=== PATIENT | male | born 1985 | race Caucasian/White ===

== ENCOUNTER 2018-02-08 11:20 | Inpatient (IN) | payer OTHER ==
[~2018-02-08] VITALS: Ht 172.7 cm; Wt 78.0 kg
--- NOTE | 2018-02-08 11:29 | ED GENERAL ADULT ---
History of Present Illness General Chief Complaint: ETOH/Drug Related Complaint Stated Complaint: ASTHMA EVAL FOR [facility] Source: patient Exam Limitations: no limitations Vital Signs & Intake/Output Vital Signs & Intake/Output Vital Signs Date Time Temp Pulse Resp B/P B/P Pulse O2 O2 Flow FiO2 Mean Ox Delivery Rate 02/08 1913 97.9 101 22 128/78 97 Nasal 1.0L Cannula 02/08 1745 68.8 110 20 134/75 96 Nasal 1.0L Cannula 02/08 1558 98 Nasal 3.0L Cannula 02/08 1518 103 28 138/81 99 Nasal 4.0L Cannula 02/08 1330 98 Nasal 3.0L Cannula 02/08 1328 109 18 135/85 98 Nasal 3.0L Cannula 02/08 1228 95 Room Air 3.0L 02/08 1202 94 Nasal 3.0L Cannula 02/08 1125 98.2 118 24 153/90 86 Room Air Room Air Allergies Coded Allergies: No Known Allergies (02/08/18) Triage Note: TRIAGE: * HIGHWATCH ADMISSION NEEDS MEDICAL CLEARANCE * 32 Y/O MALE PRESENTS C/O ASTHMA EXACERBATION - GARCIA AIR SPO2 86% - AUDIBLE WHEEZING NOTED. TAKES PERCOCET, TRAZODONE, SEROQUEL. BOUGHT UNKNOWN SUBSTANCE AND SNORTED IT YESTERDAY. MOTHER HAS BAGGIE IN POCKET. Triage Nurses Notes Reviewed? yes Onset: Gradual Duration: worse persistent since (2 WEEKS) Timing: recent history Injury Environment: home Severity: moderate, severe Severity Numbers: 8 Modifying Factors: Improves With: immobilization. Worsens With: movement. HPI: Patient is a 32-year-old male with history of drug abuse, asthma and anxiety presenting to the emergency Department chief complaint of increasing shortness of breath worsening over the past 2 weeks. He reports that he saw his primary care physician 2 weeks ago was diagnosed with bronchitis and started on antibiotics, inhalers and steroids. Patient didn't improve so he went back to the primary care physician who diagnosed him with pneumonia on x-ray. He was switched with antibiotics. Symptoms have been progressively getting worse despite treatment. Finished treatment several days ago. Mom concerned because she's not sure if he has been taking medications as prescribed. Patient does not smoke.EtOH use. Patient reports that he takes Percocet, uses lorazepam and smokes marijuana all which are for his cyclical vomiting syndrome and gastroparesis. Patient denying any chest pain but reports that he feels very tight and wheezy. Positive chills but no fevers. No palpitations. Mom reports it is extremely drowsy. Mom called the police this morning because someone dropped off pain medication to the house to the son illegally. Son agreed to be transferred to Hospital and go to rehabilitation. Denies homicidal or suicidal ideation. PER PT, OKAY TO SPEAK IN FRONT OF MOM. (Nelly Sales) Reconcile Medications Quetiapine Fumarate 50 MG TABLET 1 TAB PO QPM MENTAL HEALTH (Reported) (Jessica DELVALLE,Riccardo Brizuela) Past History Travel History Traveled to [place] past 21 day No Medical History Any Pertinent Medical History? see below for history Neurological: NONE EENT: NONE Cardiovascular: NONE Respiratory: asthma Gastrointestinal: NONE Hepatic: NONE Renal: NONE Musculoskeletal: NONE Psychiatric: anxiety Endocrine: NONE Blood Disorders: NONE Cancer(s): NONE CLINICAL QUALITY ASSURANCE ASSOCIATE/Reproductive: NONE Surgical History Surgical History: non-contributory Psychosocial History What is your primary language Irish Tobacco Use: Never used ETOH Use: occasional use Illicit Drug Use: PERCOCET Family History Hx Contributory? No (Nelly Sales) Review of Systems Review of Systems Constitutional: Reports: see HPI, chills, malaise, weakness. Comments Review of systems: See HPI, All other systems negative. Constitutional, no fever or weight loss HEENT: No visual changes no sore throat Cardiovascular: No chest pain ,palpitation , orthopnea or ankle swelling Skin, no jaundice no rashes Respiratory: No sputum or hemoptysis GI: No nausea no vomiting : No dysuria No hematuria Muscle skeletal: no back pain, no neck pain, Neurologic: No numbness no confusion Psych: No stress anxiety or depression,. Heme/endocrine: No bruising no bleeding no polyuria or polydipsia Immunology: No splenectomy or history of AIDS (Nelly Sales) Physical Exam Physical Exam General Appearance: sedated, moderate distress, MODERATE RESPIRATORY DISTRESS Comments: FATIGUED person in MOD DISTRESS HEENT: Pupils equally round and reactive to light and accommodation. Pupils approximately 3 mm bilaterally. Nose is atraumatic. External auditory canal and Tympanic membranes clear. Pharynx normal. No swelling or edema. Extremely dry oral mucosa. Dry cracked lips. Neck: Supple, no lymphadenopathy Back: Nontender Cardiovascular: Tachycardic rate and rhythms, no murmurs auscultated on exam Respiratory: Chest nontender. Moderate respiratory distress.diffuse inspiratory and expiratory wheezing noted throughout bilaterally. Abdomen: Soft, nontender nondistended, no appreciable organomegaly. Normal bowel sounds. No ascites, no rebound or guarding. Extremity: No edema, no calf tenderness to palpation, normal and equal pulses. Neuro: Alert oriented x3, motor sensory normal, cranial nerves II through XII grossly intact, several attempts made to follow exam. Skin: No appreciable rash on exposed skin, skin is warm and dry. Psych: Appears very fatigued, arousable to verbal and tactile stimuli but falls back asleep, memory and judgment is normal. Core Measures ACS in differential dx? Yes CVA/TIA Diagnosis: No Sepsis Present: No Sepsis Focused Exam Completed? No (Vicky MCDONOUGH,Nelly) Progress Differential Diagnoses I considered the following diagnoses in my evaluation of the patient: Polysubstance abuse, pneumonia, bronchitis, sepsis, asthma exacerbation, ACS, electrolyte abnormality Plan of Care: Orders Procedure Date/time Status Heart Healthy Diet 02/09 B Active BASIC ELECTROLYTES PLUS BUN&CR 02/09 0600 Active Regular Diet 02/08 D Complete Weight 02/08 1906 Active Vital Signs 02/08 190 Active Teach/Educate 02/08 190 Active Pain Treatment and Response 02/08 190 Active Nutritional Intake, Monitor 02/08 190 Active Isolation 02/08 190 Active Intake & Output 02/08 190 Active Patient Care Conference 02/08 190 Active Activity/Ambulation 02/08 1906 Active TRC EVALUATION (GEN) 02/08 1845 Active Pathway - chart 02/08 1845 Active Lab Add-on Test 02/08 1843 Active Pathway - chart 02/08 1749 Active LACTIC ACID 02/08 1749 Complete Patient Data 02/08 1628 Active ED Holding Orders 02/08 1618 Active Admit to inpatient 02/08 1618 Active Vital Signs 02/08 1618 Active Code Status 02/08 1618 Active Straight Cath 02/08 1429 Active URINE DRUG SCREEN FOR ER ONLY 02/08 1427 Complete Add-on Test (ER Only) 02/08 1329 Active ARTERIAL BLOOD GAS (GEN) 02/08 1323 Active TROPONIN LEVEL 02/08 1212 Complete TOTAL IRON BINDING CAPACITY 02/08 1212 Complete MAGNESIUM 02/08 1212 Complete FERRITIN 02/08 1212 Complete SERUM IRON 02/08 1212 Complete ETHANOL 02/08 1212 Complete EKG 02/08 1202 Active Telemetry/Hooker Off 02/08 1150 Active BLOOD CULTURE 02/08 1150 Active COMPREHENSIVE METABOLIC PANEL 02/08 1150 Complete CBC WITHOUT DIFFERENTIAL 02/08 1150 Complete Intake & Output 02/08 1124 Active House Staff 02/08 UNK Active Lab Add-on Test 02/08 UNK Active CIWA 02/08 UNK Active Activity/Ambulation 02/08 UNK Active SOCIAL WORK CONSULT 02/08 UNK Active PSYCHIATRIC CONSULT 02/08 UNK Active Current Medications Sig/Kye Start time Last Medication Dose Stop Time Status Admin Lorazepam 1 MG BID 02/08 2200 AC (Ativan) Sodium Chloride 1,000 ML Q13H 02/08 2000 AC (Normal Saline 0.9%) Acetaminophen 650 MG Q6P PRN 02/08 1845 AC (Tylenol) Enoxaparin Sodium 40 MG DAILY 02/08 184 AC (Lovenox) Clonidine 0.1 MG Q6 PRN 02/08 1815 AC (Catapres) Ampicillin Sodium/ 3,000 MG Q6 02/08 1800 AC Sulbactam Sodium (Unasyn) Sodium Chloride 100 ML (Normal Saline 0.9%) Lorazepam 2 MG Q2P PRN 02/08 1800 AC (Ativan) Lorazepam 1 MG Q2P PRN 02/08 1800 AC (Ativan) Sodium Chloride 1,000 ML BOLUS ONE 02/08 1745 AC 02/08 (Normal Saline 0.9%) 02/08 1944 1905 Magnesium Sulfate 1 GM Q2H 02/08 1545 AC 02/08 Dextrose/Water 100 ML 02/08 1944 1731 (D5W) Magnesium Sulfate 2 GM ONCE ONE 02/08 1530 CAN 02/08 1531 Laboratory Tests 02/08/18 1820: Lactic Acid 1.2 02/08/18 1427: Urine Opiates Screen > 4000.00 H, Methadone Screen < 40, Barbiturate Screen < 60, Ur Phencyclidine Scrn < 6.00, Amphetamines Screen < 100, U Benzodiazepines Scrn > 800 H, Urine Cocaine Screen < 50, Urine Cannabis Screen > 80.00 H 02/08/18 1335: Bicarbonate Actual 25, Mixed VBG pH 7.37, Mixed VBG pCO2 45, Mixed VBG O2 Saturation 35, Carboxyhemoglobin 1.0 L, O2 Concentration % 3L, O2 Delivery Method NC, Phlebotomy Draw Site LEFT RADIAL 02/08/18 1212: Anion Gap 13, Estimated GFR > 60, BUN/Creatinine Ratio 20.0, Glucose 113 H, Calcium 9.3, Magnesium 1.8, Iron 69, TIBC 355, Ferritin 147.0, Total Bilirubin 1.0, AST 26, ALT 34, Alkaline Phosphatase 85, Troponin I < 0.01, Total Protein 7.7, Albumin 4.2, Globulin 3.5, Albumin/Globulin Ratio 1.2, CBC w Diff NO MAN DIFF REQ, RBC 4.74, MCV 84.2, MCH 28.6, MCHC 34.0, RDW 13.6, MPV 7.2 L, Gran % 61.6, Lymphocytes % 11.5 L, Monocytes % 7.8, Eosinophils % 18.7 H, Basophils % 0.4, Absolute Granulocytes 7.3 H, Absolute Lymphocytes 1.4, Absolute Monocytes 0.9 H, Absolute Eosinophils 2.2, Absolute Basophils 0, Serum Alcohol < 10.0 Microbiology 02/08 121 BLOOD: Blood Culture - RECD 02/08 1210 BLOOD: Blood Culture - RECD Diagnostic Imaging: Viewed by Me: Radiology Read. Discussed w/RAD: Radiology Read. Radiology Impression: PATIENT: JULIO ARORA PRESENT AGE: 32 PATIENT ACCOUNT NO: [id number] : 84 LOCATION: [facility] ORDERING PHYSICIAN: Nelly MCDONOUGH SERVICE DATE: 02/08/18 EXAM TYPE: RAD - XRY-CHEST XRAY, TWO VIEWS EXAMINATION: XR CHEST CLINICAL INFORMATION : Further evaluate the status. COMPARISON: None TECHNIQUE: 2 views of the chest were obtained. FINDINGS: The lung skelton are better evaluated on the current radiographs. The hazy opacity seen on the prior study corresponds to prominence of the interstitium with some areas of central peribronchial cuffing. There is no dense consolidation, pleural effusion, or pneumothorax. The cardiomediastinal silhouette appears normal. The osseous structures are intact. IMPRESSION: Generalized prominence of the bronchovascular markings with some areas of peribronchial cuffing centrally without confluent consolidation or collapse. Findings may represent small airways disease. DICTATED BY: Francis Garber MD DATE/TIME DICTATED:02/08/181441 CARBON CLEANER:CLOVER DATE/TIME TRANSCRIBED:02/08/181441 CONFIDENTIAL, DO NOT COPY WITHOUT APPROPRIATE AUTHORIZATION. <Electronically signed in Other Vendor System> SIGNED BY: Francis Garber MD 02/08/18 1452 Initial ED EKG: SINUS TACHYCARDIA AT 110 BPM (Nelly Sales) Departure Departure Time of Disposition: 1619 Disposition: STILL A PATIENT Condition: Stable Clinical Impression Primary Impression: Bronchitis Secondary Impressions: Failure of outpatient treatment, Hypoxia Referrals: Patient Has No Primary Care Dr Departure Forms: Customer Survey General Discharge Information Admission Note Spoke With: Amairani DELVALLE,Olive Documentation of Exam: Documentation of any treatments & extenuating circumstances including Concerns Regarding Discharge (functional status, medication knowledge or non-compliance, living conditions, etc.) that warrant an admission rather than observation: Patient failed outpatient treatment for pneumonia and bronchitis,. Patient requiring supplemental oxygen which is new for this patient. Patient requiring serial DuoNeb [place] AND pulmonology consultation. Patient's outpatient compliance is questionable. Patient went for better as inpatient treatment for bronchitis. (Nelly Sales) PA/CPO Co-Sign Statement Statement: ED Attending supervision documentation- [X] I saw and evaluated the patient. I have also reviewed all the pertinent lab results and diagnostic results. I agree with the findings and the plan of care as documented in the PA's/CPO's documentation. [X] I have reviewed the ED Record and agree with the PA's/CPO's documentation. [] Additions or exceptions (if any) to the PAs/CPO's note and plan are summarized below: [FAILED OUTPATIENT THERAPY, POLYSUBSTANCE ABUSE, IV ABX, IV STEROIDS, NEBS, PULM CONSULT, SOCIAL WORK CONSULT] (Jessica DELVALLE,Riccardo Brizuela) Critical Care Note Critical Care Note Critical Care Time: 30-74 min (Nelly Sales)
[2018-02-08 12:21] LABS: ABSOLUTE BASOPHIL COUNT 0 /CUMM (0.0-0.2); ABSOLUTE EOSINOPHIL COUNT 2.2 /CUMM (0.0-0.7); ABSOLUTE GRANULOCYTE CT 7.3 /CUMM (1.4-6.5); ABSOLUTE LYMPH COUNT 1.4 /CUMM (1.2-3.4); ABSOLUTE MONOCYTE COUNT 0.9 /CUMM (0.10-0.60); BASOPHIL % 0.4 % (0.0-2.0); GRANULOCYTE % 61.6 % (42.2-75.2); HEMATOCRIT 39.9 % (42-52); MEAN CORPUSCULAR HGB 28.6 PG (27.0-31.0); MEAN CORPUSCULAR VOLUME 84.2 FL (80.0-94.0); MEAN PLATELET VOLUME 7.2 FL (7.4-10.4); PLATELET COUNT 289 /CUMM (130-400); RBC DISTRIBUTION WIDTH 13.6 % (11.5-14.5); RED BLOOD CELL CT 4.74 /CUMM (4.70-6.10); WHITE BLOOD CELL COUNT 11.8 /CUMM (4.8-10.8)
[2018-02-08 12:39] LABS: EOSINOPHIL % 18.7 % (0-5)
--- NOTE | 2018-02-08 12:57 | RADIOLOGY REPORT ---
EXAMINATION: XR PORTABLE CHEST CLINICAL INFORMATION: Worsening shortness of breath. COMPARISON: None TECHNIQUE: Portable frontal view of the chest was obtained. FINDINGS: Cardiac monitoring leads overlie the chest. No dense consolidation, edema, or effusion. There is hazy airspace opacity in the right mid and lower lung zones. No pneumothorax. The cardiomediastinal silhouette appears normal. IMPRESSION: Mild nonspecific hazy airspace opacity in the right mid and lower lung zones. Consider dedicated PA and lateral radiographs for dedicated evaluation. No dense consolidation in the chest.
--- NOTE | 2018-02-08 14:52 | RADIOLOGY REPORT ---
EXAMINATION: XR CHEST CLINICAL INFORMATION: Further evaluate the status. COMPARISON: None TECHNIQUE: 2 views of the chest were obtained. FINDINGS: The lung skelton are better evaluated on the current radiographs. The hazy opacity seen on the prior study corresponds to prominence of the interstitium with some areas of central peribronchial cuffing. There is no dense consolidation, pleural effusion, or pneumothorax. The cardiomediastinal silhouette appears normal. The osseous structures are intact. IMPRESSION: Generalized prominence of the bronchovascular markings with some areas of peribronchial cuffing centrally without confluent consolidation or collapse. Findings may represent small airways disease.
--- NOTE | 2018-02-08 16:52 | History & Physical ---
Miki Howard MD 02/08/18 4871: General Information and HPI History of Present Illness: Mr. 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 The patient is very drowsy and history is limited. History was also obtained from his mother. The patient was at rehabilitation 3 years ago [facility] and has since been off of drugs. However, about one and half months ago, he relapsed and started using drugs again. His mother thinks that this was triggered by anxiety. He has been using lorazepam, Percocet, and marijuana. He denies ever injecting drugs but does sometimes snort them. Additionally, the patient has recently experienced bronchitis/pneumonia and took a course of antibiotics and prednisone which she finished 1 week ago. Otherwise, he denies shortness of breath, chest pain, cough , fever, chills, night sweats, abdominal pain, nausea or vomiting, diarrhea. He does not smoke tobacco or use alcohol. 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 [employer] Allergies/Medications Allergies: Coded Allergies: No Known Allergies (02/08/18) Past History Travel History Traveled to [place] past 21 day No Medical History Neurological: NONE EENT: NONE Cardiovascular: NONE Respiratory: asthma Gastrointestinal: NONE Hepatic: NONE Renal: NONE Musculoskeletal: NONE Psychiatric: anxiety Endocrine: NONE Blood Disorders: NONE Cancer(s): NONE MECHANICAL ENGINEERING INTERN/Reproductive: NONE Surgical History Surgical History: non-contributory Past Family/Social History Psychosocial History ETOH Use: occasional use Illicit Drug Use: PERCOCET Review of Systems Review of Systems Constitutional: Reports: no symptoms. EENTM: Reports: no symptoms. Cardiovascular: Reports: no symptoms. Respiratory: Reports: see HPI. GI: Reports: no symptoms. Genitourinary: Reports: no symptoms. Musculoskeletal: Reports: no symptoms. Skin: Reports: no symptoms. Neurological/Psychological: Reports: no symptoms. Hematologic/Endocrine: Reports: no symptoms. Immunologic/Allergic: Reports: no symptoms. All Other Systems: Reviewed and Negative Exam & Diagnostic Data Last 24 Hrs of Vital Signs/I&O Vital Signs Date Time Temp Pulse Resp B/P B/P Pulse O2 O2 Flow FiO2 Mean Ox Delivery Rate 02/08 1558 98 Nasal 3.0L Cannula 02/08 1518 103 28 138/81 99 Nasal 4.0L Cannula 02/08 1330 98 Nasal 3.0L Cannula 02/08 1328 109 18 135/85 98 Nasal 3.0L Cannula 02/08 1228 95 Room Air 3.0L 02/08 1202 94 Nasal 3.0L Cannula 02/08 1125 98.2 118 24 153/90 86 Room Air Room Air Intake & Output 02/08 1600 02/08 0800 04 0000 Intake Total Output Total Balance Patient 77.111 kg Weight Weight Reported by Patient Measurement Method Physical Exam General Appearance Cooperative, solmnulent Skin No Rashes HEENT Atraumatic Cardiovascular Regular Rate, Normal S1, Normal S2 Lungs moderate wheezing with crackles on left Abdomen Normal Bowel Sounds, Soft, No Tenderness Extremities No Edema, Normal Pulses, No Tenderness/Swelling Last 24 Hrs of Labs/Nabil: Laboratory Tests 02/08/18 1427: Urine Opiates Screen > 4000.00 H, Methadone Screen < 40, Barbiturate Screen < 60, Ur Phencyclidine Scrn < 6.00, Amphetamines Screen < 100, U Benzodiazepines Scrn > 800 H, Urine Cocaine Screen < 50, Urine Cannabis Screen > 80.00 H 02/08/18 1335: Bicarbonate Actual 25, Mixed VBG pH 7.37, Mixed VBG pCO2 45, Mixed VBG O2 Saturation 35, Carboxyhemoglobin 1.0 L, O2 Concentration % 3L, O2 Delivery Method NC, Phlebotomy Draw Site LEFT RADIAL 02/08/18 1212: Anion Gap 13, Estimated GFR > 60, BUN/Creatinine Ratio 20.0, Glucose 113 H, Calcium 9.3, Total Bilirubin 1.0, AST 26, ALT 34, Alkaline Phosphatase 85, Troponin I < 0.01, Total Protein 7.7, Albumin 4.2, Globulin 3.5, Albumin/ Globulin Ratio 1.2, CBC w Diff NO MAN DIFF REQ, RBC 4.74, MCV 84.2, MCH 28.6, MCHC 34.0, RDW 13.6, MPV 7.2 L, Gran % 61.6, Lymphocytes % 11.5 L, Monocytes % 7.8, Eosinophils % 18.7 H, Basophils % 0.4, Absolute Granulocytes 7.3 H, Absolute Lymphocytes 1.4, Absolute Monocytes 0.9 H, Absolute Eosinophils 2.2, Absolute Basophils 0, Serum Alcohol < 10.0 Microbiology 02/08 1212 BLOOD: Blood Culture - RECD 02/08 1210 BLOOD: Blood Culture - RECD Assessment/Plan Assessment: Mr. 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 On presentation, vital signs were T 98.2, HR 118, RR 24, BP 153/90, saturating 96% on room air. This improved to 98% on 3 L nasal cannula. Laboratories are sent in for hemoglobin 13.6, white blood cell count 11.8, MCV 84.2, glucose 113, negative LFTs, troponin less than 0.01. Chest x-ray showed generalized prominence of the bronchovascular markings with some areas of peribronchial cuffing centrally without confluent consolidation collapse which may represent small airways disease. He will be admitted to general medicine and treated for the following problem: 1. Possible aspiration pneumonia 2. Polysubstance abuse 3. Anxiety 4. Normocytic anemia 5. Acute hypoxic respiratory failure #Possible aspiration pneumonia: Patient was very somnolent on admission, crackles on exam, and chest x-ray findings consistent with possible aspiration pneumonia. He also has leukocytosis and tachycardia and hypoxia. We will treat him with broad-spectrum antibiotics. He passed bedside swallow evaluation. -Ampicillin/sulbactam -TRC nebs -Sputum culture -Oxygen therapy -Hold sedatives #Polysubstance abuse: Patient has history of polysubstance abuse and will likely need rehabilitation after medically stabilized. He will likely go through withdrawal. He also has significant anxiety that is contributing to this. The patient's mother brought in a bag of drugs that we sent to the pharmacy for analysis.. -Lorazepam 1 mg twice a day -CIWA protocol -Clonidine as necessary -Ondansetron as necessary -Consider adding dicyclomine, loperamide, acetaminophen, and cyclobenzaprine further symptoms with withdrawal as necessary -Zolpidem -Psychiatric consult -Social work consult #Normocytic anemia: Likely anemia of chronic disease. -Iron studies DVT prophylaxis with enoxaparin Regular diet Full code As Ranked By This Provider Problem List: 1. Aspiration pneumonia Core Measures/Misc (07/20) Acute Coronary Syndrome ACS Diagnosis: No Congestive Heart Failure Congestive Heart Failure Diagnosis No Cerebrovascular Accident CVA/TIA Diagnosis: No VTE (View Protocol) VTE Risk Factors Immobility No Mechanical VTE Prophylaxis d/t N/A MechProphylax Ordered No VTE Pharm Prophylaxis d/t NA PharmProphylax ordered Sepsis (View protocol) Sepsis Present: No Addi Urban MD 02/08/181952: General Information and HPI Allergies/Medications Home Med list Quetiapine Fumarate 50 MG TABLET 1 TAB PO QPM MENTAL HEALTH (Reported) Resident Review Statement Resident Statement: examined this patient, discussed with supply chain intern, agreed with supply chain intern, discussed with family Other Findings: 32-year-old man with a past medical history of cyclic vomiting syndrome secondary to marijuana, anxiety and benzodiazepine and opiate abuse. He presents today with altered mental status and lethargy after he called his mother for an intervention due to substance use. The patient was found lethargic and had been using drugs of the streets and his mother collected a bag of an unknown substance which the patient had snorted today. Patient subsequently was very short of breath when his mother found him and he had bruises on his head which he could not explain. (Suspected to have fallen at home). Patient reportedly finished because of antibiotics and prednisone one week ago. Significant findings on admission showed a young man was lethargic but oriented was significant for bilateral scattered wheezing and left lung base crepitations. Is urine toxicology on admission was positive for benzodiazepines and opiates as well as cannabis. In addition his CBC shows a elevated WBC of 11.8. Chest x- ray shows hazy airspace opacities in the right mid and lower lung zones. He'll be admitted and treated for opiate and benzodiazepine abuse with potential withdrawal. In addition aspiration pneumonia is a possibility with a superimposed chemical-induced bronchitis and he will be managed for these as well. Will start him on scheduled lorazepam and clonidine for potential benzodiazepine and opiate withdrawal. Will also receive bronchodilator nebulizer treatments as well as IV antibiotics for his pneumonia. Psychiatry and social work consult will be obtained for his substance abuse. Amairani DELVALLE,Olive 02/08/182058: Attending MD Review Statement Attending Statement Attending Statement: examined this patient, discuss w/resident/PA/WARDSPERSON, discussed with family, reviewed EMR data (avail) Attending Assessment/Plan: Patient seen and examined in the emergency room. Plan of care discussed with the medical team and the patient. Available lab work and radiology test reports were reviewed. His mother was present at the bedside. In summary this is a a 32-year-old male with a long-standing history of substance abuse with prior rehabilitation attempts who is currently using the benzos, Percocet and marijuana. He presented with a change in mental status. At the time of examination he was a arousable but lethargic and appeared disoriented. He had multiple moles and lesions on his face probably from recent falls. His neuro exam was nonlateralizing. He did have initially tachycardia and appeared very dry with dry skin and by mouth. He was afebrile on admission. His WBC count was slightly elevated with eosinophilia of 18.7%. Chest x-ray shows a prominence of peribronchial coughing. Assessment plan Substance abuse with benzos narcotics and marijuana - patient risk for withdrawal from both benzos and narcotics Change in mental status Mild hypoxia Dehydration No do one of the elicit drug pack was given to pharmacy for analysis Plan Start Low-dose oral clonidine Monitor mental status closely Fall precautions Once patient is fully awake and alert he will need to be started on long-acting benzo such as Valium to avoid benzo withdrawal
[2018-02-08] MEDS ORDERED: QUETIAPINE FUMA50 M1 PO (18:35)
[2018-02-08 19:13] VITALS: BP 128/78
--- NOTE | 2018-02-08 19:20 | PN- Student ---
Subjective Subjective: Mr. Feliz is a 32 year old male with a PMHx significant for Asthma, cyclical vomitting syndrome, and polysubstance abuse, who presents to the ED today with difficulty breathing secondary to drug intoxication and drug rehabilitation. Patient called his mother at 6 am this morning as he wanted to seek out help for his drug addiction. He states that he has been using Lorazepam, marijauna and Percocet recreationally. He has had a successful rehabilitation stint in the past and had been sober for the past 3 years up until 1.5 months ago. He has never injected drugs in the past. His mother called [facility] rehab facility today to find out about possible admission but was reccomended to seek medical attention for his difficulty breathing. He recently was treated for bronchitis/ pneumonia with Prednisone and an Abx both patient and mother could not recall the name of. He completed the course of both medications approx 1 weeks ago. His mother states that the patients facial abrasions are likely secondary to fall last night. The patient's recent drug use prior to coming in to the ED this am was lorazepam, percocet and snorted an unidentified drug lablelled [place]. PMHx: Asthma, polysubstance abuse Allergies: NKDA Medications: Serequel and Trazadone Social: lives alone at home 10 min away from mother. 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 Smokes marijuana but does not smoke cigarettes. ETOH use in the past but no longer drinks x4-5 years. Recreational drug use consists of Lorazepam and Percocet. Objective Objective: Laboratory Tests 02/08 02/08 02/08 1820 1427 1335 Blood Gas Bicarbonate Actual (22 - 26 MEQ/L) 25 Mixed VBG pH (7.31 - 7.41 PH) 7.37 Mixed VBG pCO2 (41 - 51 TORR) 45 Mixed VBG O2 Saturation (35 - 45 TORR) 35 Carboxyhemoglobin (1.5 - 5.0 %) 1.0 L O2 Concentration % 3L O2 Delivery Method NC Chemistry Lactic Acid (0.7 - 2.1 mmol/L) 1.2 Miscellaneous Phlebotomy Draw Site LEFT RADIAL Toxicology Urine Opiates Screen (>2000 NG/ML) > 4000.00 H Methadone Screen (>300 NG/ML) < 40 Barbiturate Screen (>200 NG/ML) < 60 Ur Phencyclidine Scrn (>25 NG/ML) < 6.00 Amphetamines Screen (>1000 NG/ML) < 100 U Benzodiazepines Scrn (>200 NG/ML) > 800 H Urine Cocaine Screen (>300 NG/ML) < 50 Urine Cannabis Screen (>50 NG/ML) > 80.00 H 02/08 1212 Chemistry Sodium (137 - 145 mmol/L) 139 Potassium (3.5 - 5.1 mmol/L) 3.9 Chloride (98 - 107 mmol/L) 99 Carbon Dioxide (22 - 30 mmol/L) 28 Anion Gap (5 - 16) 13 BUN (9 - 20 mg/dL) 14 Creatinine (0.7 - 1.2 mg/dL) 0.7 Estimated GFR (>60 ml/min) > 60 BUN/Creatinine Ratio (7 - 25 %) 20.0 Glucose (65 - 99 mg/dL) 113 H Calcium (8.4 - 10.2 mg/dL) 9.3 Magnesium (1.6 - 2.3 mg/dL) 1.8 Iron (49 - 181 ug/dL) 69 TIBC (261 - 462 ug/dL) 355 Ferritin (17.9 - 464 ng/mL) 147.0 Total Bilirubin (0.2 - 1.3 mg/dL) 1.0 AST (17 - 59 U/L) 26 ALT (21 - 72 U/L) 34 Alkaline Phosphatase (< 127 U/L) 85 Troponin I (<0.11 ng/ml) < 0.01 Total Protein (6.3 - 8.2 g/dL) 7.7 Albumin (3.5 - 5.0 g/dL) 4.2 Globulin (1.9 - 4.2 gm/dL) 3.5 Albumin/Globulin Ratio (1.1 - 2.2 %) 1.2 Hematology CBC w Diff NO MAN DIFF REQ WBC (4.8 - 10.8 /CUMM) 11.8 H RBC (4.70 - 6.10 /CUMM) 4.74 Hgb (14.0 - 18.0 G/DL) 13.6 L Hct (42 - 52 %) 39.9 L MCV (80.0 - 94.0 FL) 84.2 MCH (27.0 - 31.0 PG) 28.6 MCHC (33.0 - 37.0 G/DL) 34.0 RDW (11.5 - 14.5 %) 13.6 Plt Count (130 - 400 /CUMM) 289 MPV (7.4 - 10.4 FL) 7.2 L Gran % (42.2 - 75.2 %) 61.6 Lymphocytes % (20.5 - 51.1 %) 11.5 L Monocytes % (1.7 - 9.3 %) 7.8 Eosinophils % (0 - 5 %) 18.7 H Basophils % (0.0 - 2.0 %) 0.4 Absolute Granulocytes (1.4 - 6.5 /CUMM) 7.3 H Absolute Lymphocytes (1.2 - 3.4 /CUMM) 1.4 Absolute Monocytes (0.10 - 0.60 /CUMM) 0.9 H Absolute Eosinophils (0.0 - 0.7 /CUMM) 2.2 Absolute Basophils (0.0 - 0.2 /CUMM) 0 Toxicology Serum Alcohol (<10 MG/DL) < 10.0 Current Medications Sig/Kye Start time Last Medication Dose Stop Time Status Admin Acetaminophen 650 MG Q6P PRN 02/08 184 AC (Tylenol) Albuterol Sulfate 3 ML EVERY 4 HRS/AWAKE 02/09 0800 AC 02/08 (Proventil) 2145 Ampicillin Sodium/ 3,000 MG Q6H 02/08 2100 AC 02/09 Sulbactam Sodium 0239 (Unasyn) Sodium Chloride 100 ML (Normal Saline 0.9%) Clonidine 0.1 MG Q6 PRN 02/08 1815 AC (Catapres) Enoxaparin Sodium 40 MG DAILY 02/08 184 AC 02/08 (Lovenox) 2155 Lorazepam 1 MG BID 02/08 220 AC 02/08 (Ativan) 215 Lorazepam 2 MG Q2P PRN 02/08 1800 AC (Ativan) Lorazepam 1 MG Q2P PRN 02/08 1800 AC 02/08 (Ativan) 2350 Magnesium Sulfate 2 GM ONCE ONE 02/08 1530 CAN 02/08 1531 Sodium Chloride 1,000 ML Q13H 02/09 2000 AC 02/08 (Normal Saline 0.9%) 2153 Vital Signs Date Time Temp Pulse Resp B/P B/P Pulse O2 O2 Flow FiO2 Mean Ox Delivery Rate 02/09 633 98.3 75 20 137/68 97 Nasal 2.0L Cannula 02/09 0000 Nasal 1.0L Cannula 02/08 2151 Nasal 1.0L Cannula 02/08 2142 98.6 94 18 122/74 96 Nasal 1.0L Cannula 02/08 1958 96 Nasal 1.0L Cannula 02/08 1913 97.9 101 22 128/78 97 Nasal 1.0L Cannula 02/08 1745 68.8 110 20 134/75 96 Nasal 1.0L Cannula 02/08 1558 98 Nasal 3.0L Cannula 02/08 1518 103 28 138/81 99 Nasal 4.0L Cannula 02/08 1330 98 Nasal 3.0L Cannula 02/08 1328 109 18 135/85 98 Nasal 3.0L Cannula 02/08 1228 95 Room Air 3.0L 02/08 1202 94 Nasal 3.0L Cannula 02/08 1125 98.2 118 24 153/90 86 Room Air Room Air PE: Gen apperance: Solmnulent, cooperative HEENT: superficial abrasions on face CV: regular rate and rhythym normal S1 & S2 No M/R/G Pulm: wheezing and crackles in posterior left lung skelton Abd: normal bowel sounds, soft, non-tender Assessment/Plan Assessment: Mr. Feliz is a 32 year old male with a pmhx sig for asthma, cyclical vomiting syndrome and poly substance abuse who presented today for drug abuse rehabilitation and trouble breathing. Patient has previously been to rehab 3 years ago for drug abuse and only over the past 1.5 months has relapsed due to feeling depressed and anxious. He called his mother this morning as he felt he needed help however he reports taking and lorazepam and percocet by mouth. As well as an unkown substance labelled supreme, which the patient reports was percocet crushed up, which he snorted. His mother states that his facial abrasions are likely due to falling down while drug induced last night. He does not complain of headache, neck pain, n/v, fever, chills, chest pain, or abdominal pain/diarrhea. Plan: Problem list: 1. Aspiration Pneumonia 2. Polysubstance abuse 3. Anxiety/depression #Aspiration Pneumonia: Patient presented with difficulty breathing and Physical exam findings are consistent with possible aspiration pneumonia. As patient also passed out due to drug intoxication, indicated by abrasion on his face, it is possible he aspirated at that point in time. His CBC also indicates leukocytosis. -Ampicillin/sulbactam IV -Nebulizer treatments -Sputum culture -O2 nasal canula 3L -monitor O2 sats #Polysubstance abuse: Patient is not in active withdrawl however states that he has been abusing Lorazepam and Percocet. He states that he would like to go to a rehabilitation facility. -Lorazepam low dose 1 mg BID -Social work to help set up transition to rehabilitation facility -monitor O2 saturation #anxiety/depression: Patient reports feelings of anxiety and depression leading to his substance abuse. -Psych consult DVT ppx: enoxaparin Reg diet full code
--- NOTE | 2018-02-08 20:59 | Admission Certification ---
Admission Certification Certification Statement - As attending physician, I certify that at the time of - admission, based on clinical presentation, severity of - symptoms, need for further diagnostic testing and - therapeutic interventions, and risk of adverse outcomes - without in-hospital treatment, in my clinical assessment, - this patient requires an acute hospital stay for a minimum - of two nights or longer. I have also considered psychsocial - factors such as support system, advanced age, financial - issues, cognitive issues, and failed out-patient treatments, - past re-admission history, safety of patient, and lack of - compliance as applicable. Specific rationale supporting this admission is: Drug abuse and change in mental status
[2018-02-08 21:42] VITALS: BP 122/74
[2018-02-09 06:33] VITALS: BP 137/68
--- NOTE | 2018-02-09 06:38 | PN- Housestaff ---
See Addendum Subjective Follow-up For: ASP PNA, polysubstance abuse Subjective: No overnight events. The patient feels better this morning, he slept well. He does not have much anxiety but is feeling a little tremulous and some agitation. His breathing is improved though he is requiring oxygen. No chest pain, abdominal pain, nausea, vomiting, diarrhea, or other complaints. Review of Systems Constitutional: Reports: see HPI. EENTM: Reports: no symptoms. Cardiovascular: Reports: no symptoms. Respiratory: Reports: see HPI. Gastrointestinal: Reports: no symptoms. Genitourinary: Reports: no symptoms. Musculoskeletal: Reports: no symptoms. Skin: Reports: no symptoms. Neurological/Psychological: Reports: see HPI. Hematologic/Endocrine: Reports: no symptoms. Immunologic/Allergic: Reports: no symptoms. Objective Last 24 Hrs of Vital Signs/I&O Vital Signs Date Time Temp Pulse Resp B/P B/P Pulse O2 O2 Flow FiO2 Mean Ox Delivery Rate 02/09 0633 98.3 75 20 137/68 97 Nasal 2.0L Cannula 02/09 0000 Nasal 1.0L Cannula 02/08 2151 Nasal 1.0L Cannula 02/08 214 98.6 94 18 122/74 96 Nasal 1.0L Cannula 02/08 1958 96 Nasal 1.0L Cannula 02/08 1913 97.9 101 22 128/78 97 Nasal 1.0L Cannula 02/08 1745 68.8 110 20 134/75 96 Nasal 1.0L Cannula 02/08 1558 98 Nasal 3.0L Cannula 02/08 1518 103 28 138/81 99 Nasal 4.0L Cannula 02/08 1330 98 Nasal 3.0L Cannula 02/08 1328 109 18 135/85 98 Nasal 3.0L Cannula 02/08 1228 95 Room Air 3.0L 02/08 1202 94 Nasal 3.0L Cannula 02/08 1125 98.2 118 24 153/90 86 Room Air Room Air Intake & Output 02/09 0800 02/09 0000 02/08 1600 Intake Total 840 3665 Output Total 800 Balance 840 2865 Intake, IV 600 3425 Intake, Oral 240 240 Output, Urine 800 Patient 78.018 kg 77.111 kg Weight Weight Bed scale Reported by Patient Measurement Method Physical Exam General Appearance: Alert, Oriented X3, Cooperative, No Acute Distress Cardiovascular: Regular Rate, Normal S1, Normal S2 Lungs: significant wheezing bilaterally Abdomen: Normal Bowel Sounds, Soft, No Tenderness Extremities: No Edema, Normal Pulses, No Tenderness/Swelling Current Medications: Current Medications Sig/Kye Start time Last Medication Dose Route Stop Time Status Admin Acetaminophen 650 MG Q6P PRN 02/08 1845 AC PO Albuterol Sulfate 3 ML EVERY 4 HRS/AWAKE 02/09 0800 AC 02/08 INH 2145 Albuterol Sulfate 3 ML ONCE ONE 02/08 1530 DC 02/08 INH 02/08 1531 1550 Albuterol Sulfate 3 ML ONCE ONE 02/08 1530 DC / INH 02/08 1531 1550 Albuterol Sulfate 3 ML ONCE ONE 02/08 1530 DC / INH 02/08 1531 1550 Albuterol Sulfate 3 ML ONCE ONE 02/08 1330 DC 02/08 INH 02/08 1331 1330 Albuterol Sulfate 3 ML ONCE ONE 02/08 1200 DC 02/08 INH 02/08 1201 1202 Ampicillin Sodium/ 3,000 MG Q6H 02/08 2100 AC 02/09 Sulbactam Sodium IV 0239 Sodium Chloride 100 ML Ampicillin Sodium/ 0 .STK-MED ONE 02/08 1820 DC Sulbactam Sodium .ROUTE Ampicillin Sodium/ 3,000 MG Q6 02/08 1800 DC Sulbactam Sodium IV Sodium Chloride 100 ML Azithromycin 500 MG ONCE ONE 02/08 1615 DC 02/08 Dextrose/Water 250 ML IV 02/08 1714 1750 Clonidine 0.1 MG Q6 PRN 02/08 1815 AC PO Enoxaparin Sodium 40 MG DAILY 02/08 1844 AC 02/08 SC 2155 Influenza Virus 0.5 ML ONCE ONE 02/08 1930 DC Vaccine IM 02/08 1931 Ipratropium [place] 2.5 ML ONCE ONE 02/08 1200 DC 02/08 INH 02/08 1201 1202 Lorazepam 1 MG BID 02/08 2200 AC 02/08 PO 2152 Lorazepam 2 MG Q2P PRN 02/08 1800 AC IV Lorazepam 1 MG Q2P PRN 02/08 1800 AC 02/08 IV 2350 Magnesium Sulfate 1 GM Q2H 02/08 1545 DC 02/08 Dextrose/Water 100 ML IV 02/08 1944 1731 Magnesium Sulfate 2 GM ONCE ONE 02/08 1530 CAN IV 02/08 1531 Methylprednisolone 0 .STK-MED ONE 02/08 1220 DC .ROUTE Methylprednisolone 125 MG ONCE ONE 02/08 1200 DC 02/08 IV 02/08 1201 1220 Naloxone HCl 0 .STK-MED ONE 02/08 1539 DC .ROUTE Naloxone HCl 0.4 MG ONCE ONE 02/08 1515 DC / IV 02/08 1516 1538 Naloxone HCl 0.4 MG ONCE ONE 02/08 1330 DC / IV 02/08 1331 1330 Naloxone HCl 0 .STK-MED ONE 02/08 1329 DC .ROUTE Sodium Chloride 1,000 ML Q13H 02/08 2000 AC 02/08 IV 2153 Sodium Chloride 1,000 ML BOLUS ONE 02/08 1745 DC 02/08 IV 02/08 1944 1905 Sodium Chloride 1,000 ML BOLUS ONE 02/08 1630 DC / IV 02/08 1729 1640 Sodium Chloride 1,000 ML BOLUS ONE 02/08 1330 DC / IV 02/08 1429 1335 Sodium Chloride 1,000 ML BOLUS ONE 02/08 1330 DC / IV 02/08 1429 1519 Last 24 Hrs of Lab/Nabil Results Last 24 Hrs of Labs/Mics: Laboratory Tests 02/08/18 1820: Lactic Acid 1.2 02/08/18 1427: Urine Opiates Screen > 4000.00 H, Methadone Screen < 40, Barbiturate Screen < 60, Ur Phencyclidine Scrn < 6.00, Amphetamines Screen < 100, U Benzodiazepines Scrn > 800 H, Urine Cocaine Screen < 50, Urine Cannabis Screen > 80.00 H 02/08/18 1335: Bicarbonate Actual 25, Mixed VBG pH 7.37, Mixed VBG pCO2 45, Mixed VBG O2 Saturation 35, Carboxyhemoglobin 1.0 L, O2 Concentration % 3L, O2 Delivery Method NC, Phlebotomy Draw Site LEFT RADIAL 02/08/18 1212: Anion Gap 13, Estimated GFR > 60, BUN/Creatinine Ratio 20.0, Glucose 113 H, Calcium 9.3, Magnesium 1.8, Iron 69, TIBC 355, Ferritin 147.0, Total Bilirubin 1.0, AST 26, ALT 34, Alkaline Phosphatase 85, Troponin I < 0.01, Total Protein 7.7, Albumin 4.2, Globulin 3.5, Albumin/Globulin Ratio 1.2, CBC w Diff NO MAN DIFF REQ, RBC 4.74, MCV 84.2, MCH 28.6, MCHC 34.0, RDW 13.6, MPV 7.2 L, Gran % 61.6, Lymphocytes % 11.5 L, Monocytes % 7.8, Eosinophils % 18.7 H, Basophils % 0.4, Absolute Granulocytes 7.3 H, Absolute Lymphocytes 1.4, Absolute Monocytes 0.9 H, Absolute Eosinophils 2.2, Absolute Basophils 0, Serum Alcohol < 10.0 Microbiology 02/09 1212 BLOOD: Blood Culture - RECD 02/08 1210 BLOOD: Blood Culture - RECD Assessment/Plan Assessment: Mr. 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 Problem list: 1. Possible aspiration pneumonia 2. Polysubstance abuse 3. Anxiety 4. Normocytic anemia 5. Acute hypoxic respiratory failure #Possible aspiration pneumonia: Patient was very somnolent on admission, crackles on exam, and chest x-ray findings consistent with possible aspiration pneumonia. He also had leukocytosis and tachycardia and hypoxia. He was started on ampicillin/sulbactam yesterday and his breathing has improved though he is having some wheezing. -Ampicillin/sulbactam, day 2 -TR nebs -Sputum culture -Oxygen therapy -Hold sedatives -Consider adding steroids for wheezing #Polysubstance abuse: Patient has history of polysubstance abuse and will likely need rehabilitation after medically stabilized. Patient scoring 0-8 on the CIWA scale. He reports mild agitation and tremor worse this morning. -Lorazepam 1 mg twice a day -CIWA protocol -Clonidine as necessary -Ondansetron as necessary -Consider adding dicyclomine, loperamide, acetaminophen, and cyclobenzaprine further symptoms with withdrawal as necessary -Zolpidem -Appreciate psychiatry recommendations -Social work consult #Normocytic anemia: Iron studies are normal. -Continue to monitor DVT prophylaxis with enoxaparin Regular diet Full code Problem List: 1. Aspiration pneumonia Pain Ratin Pain Location: no Pain Goal: Remain pain free Pain Plan: see a/p Tomorrow's Labs & Rationales: none
[2018-02-09 09:36] LABS: ABSOLUTE BASOPHIL COUNT 0 /CUMM (0.0-0.2); ABSOLUTE EOSINOPHIL COUNT 0.4 /CUMM (0.0-0.7); ABSOLUTE GRANULOCYTE CT 8.3 /CUMM (1.4-6.5); ABSOLUTE LYMPH COUNT 2.3 /CUMM (1.2-3.4); ABSOLUTE MONOCYTE COUNT 0.7 /CUMM (0.10-0.60); BASOPHIL % 0.4 % (0.0-2.0); EOSINOPHIL % 3.2 % (0-5); GRANULOCYTE % 70.9 % (42.2-75.2); MEAN CORPUSCULAR HGB CONC 33.8 G/DL (33.0-37.0); MEAN CORPUSCULAR VOLUME 85.9 FL (80.0-94.0); PLATELET COUNT 234 /CUMM (130-400); RBC DISTRIBUTION WIDTH 13.9 % (11.5-14.5); RED BLOOD CELL CT 4.19 /CUMM (4.70-6.10); WHITE BLOOD CELL COUNT 11.7 /CUMM (4.8-10.8)
--- NOTE | 2018-02-09 14:02 | Cons- Psychiatry ---
Psychiatric Consult Date of Consult: 02/09/18 Reason for Consult: Polysubstance withdrawal History of Present Illness: 32 , domiciled, male presented to the ED 02/08/18 @ 1127 with a CC of asthma exacerbation. He had bought a bag of crushed Percocet and inhaled part of it that morning; his mother has the bag, per the triage note. He reports that he recently had bronchitis and pneumonia, had difficulty breathing, and had not slept in several days. He has prescribed alprazolam, which he usually takes 1-2 tabs, but due to impatience, he took an additional 1- 2 tabs, as well as Percocet he had been prescribed, 3-4 tabs, in attempt to get to sleep. He denies suicidal ideation or attempt. He denies any history of suicide attempt. He reports that he has been diagnosed with anxiety, and is prescribed alprazolam by his PCP, Allergies: Coded Allergies: No Known Allergies (02/08/18) Current Medications: Current Medications Sig/Kye Start time Last Medication Dose Route Stop Time Status Admin Acetaminophen 650 MG Q6P PRN 02/08 184 AC PO Albuterol Sulfate 3 ML EVERY 4 HRS/AWAKE 02/09 0800 AC 02/09 INH 1144 Albuterol Sulfate 3 ML ONCE ONE 02/08 1530 DC 02/08 INH 02/08 1531 1550 Albuterol Sulfate 3 ML ONCE ONE 02/08 1530 DC 02/08 INH 02/08 1531 1550 Albuterol Sulfate 3 ML ONCE ONE 02/08 1530 DC 02/08 INH 02/08 1531 1550 Ampicillin Sodium/ 3,000 MG Q6H 02/08 2100 AC 02/09 Sulbactam Sodium IV 0857 Sodium Chloride 100 ML Ampicillin Sodium/ 0 .STK-MED ONE 02/08 1820 DC Sulbactam Sodium .ROUTE Ampicillin Sodium/ 3,000 MG Q6 02/08 1800 DC Sulbactam Sodium IV Sodium Chloride 100 ML Azithromycin 500 MG ONCE ONE 02/08 1615 DC 02/08 Dextrose/Water 250 ML IV 02/08 1714 1750 Clonidine 0.1 MG Q6 PRN 02/08 1815 AC PO Enoxaparin Sodium 40 MG DAILY 02/08 1844 AC 02/09 SC 0857 Influenza Virus 0.5 ML ONCE ONE 02/08 1930 DC Vaccine IM 02/08 1931 Lorazepam 1 MG Q6 02/09 1200 AC 02/09 PO 1329 Lorazepam 1 MG BID 02/08 2200 DC 02/09 PO 0857 Lorazepam 2 MG Q2P PRN 02/08 1800 AC IV Lorazepam 1 MG Q2P PRN 02/08 1800 AC 02/09 IV 1333 Magnesium Sulfate 1 GM Q2H 02/08 1545 DC 02/08 Dextrose/Water 100 ML IV 02/08 1944 1731 Magnesium Sulfate 2 GM ONCE ONE 02/08 1530 CAN IV 02/08 1531 Naloxone HCl 0 .STK-MED ONE 02/08 1539 DC .ROUTE Naloxone HCl 0.4 MG ONCE ONE 02/08 1515 DC 02/08 IV 02/08 1516 1538 Sodium Chloride 1,000 ML Q13H 02/08 2000 AC 02/08 IV 2153 Sodium Chloride 1,000 ML BOLUS ONE 02/08 1745 DC / IV 02/08 1944 1905 Sodium Chloride 1,000 ML BOLUS ONE 02/08 1630 DC 02/08 IV 02/08 1729 1640 Sodium Chloride 1,000 ML BOLUS ONE 02/08 1330 DC / IV 02/08 1429 1335 Sodium Chloride 1,000 ML BOLUS ONE 02/08 1330 DC 02/08 IV 02/08 1429 1519 Past History Past Medical History Neurological: NONE EENT: NONE Cardiovascular: NONE Respiratory: asthma Gastrointestinal: GASTROPARESIS CYCLIC VOMITING SYMDROME Hepatic: NONE Renal: NONE Musculoskeletal: CONCUSSION Psychiatric: anxiety, substance abuse Endocrine: NONE Blood Disorders: NONE Cancer(s): NONE REHAB SPEC/Reproductive: NONE Past Surgical History Surgical History: ACL R KNEE TONSILLECTOMY ADENOIDECTOMY Psychosocial History Strengths/Capabilities: Motivated for treatment Physical Limitations (Interventions): None known Psychiatric Treatment History Psych Treatment Psychiatric Treatment Yes Inpatient Treatment No (Denies) Outpatient Treatment Yes Location of Treatment [facility], outpatient Reason for Treatment Anxiety Dates of Treatment Current Response to Treatment Unknown Diagnosis: By history, Anxiety d/o, unspecified Substance use disorder Risk Factors: high anxiety/distress, substance abuse, lives alone, male, limited support Substance Use/Abuse History Drug Use/Abuse Substances Used/Abused Yes Substance Used/Abused Marijuana (Prescribed) First Use Not evaluated Last Used CERTIFIED WELLNESS PROGRAM COORDINATOR How much used/taken Unknown How often Daily Substance Abuse Treatment Substance Abuse Treatment Past Substance Abuse [place] No Comments: Medical marijuana from Tj Escamilla, MD, [place] Last dispensed 02/03/18 Lorazepam 1 mg #30 for 10 days by Ross Madrigal MD, [facility]. Last dispensed . Assessment/Plan Mental Status Orientation: Oriented to person, place, month, year, but not day. Affect: Constricted Speech: Soft Neuro-vegetative: Sleep Disturbance Mental Status Exam: Alert, sitting in bed. Oriented, as above. He denies SI or HI. He denies any history of suicide attempt. Denies AH, TH, VH and presents no nestor delusions. Diagnosed with anxiety three years ago by his PCP at [facility], and prescribed alprazolam. He reports that his anxiety began then as he was experiencing "relationship troubles," including a divorce. He has no children. He denies panic events since he started "alprazolam," which the CT STRATEGIC PROCUREMENT MANAGER reveals as lorazepam. The patient denies current alcohol use. He denies other drug use, other than cannabis, which is prescribed. He denies history of trauma or abuse. The patient denies psychiatric hospitalization. He has not been to an Intensive Outpatient Program. 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 The patient reports that he has not been sleeping, and took 1-2 more tabs of lorazepam than is prescribed, and 3-4 tabs of Percocet "I had left over" in an attempt to sleep. Asked why he took so much medication, he states that he was impatient. He denies this was a suicide attempt. The patient reports he mixed up the names alprazolam and lorazepam. Lab Results: Laboratory Tests 02/09 02/08 02/08 0806 1820 1427 Chemistry Sodium (137 - 145 mmol/L) 139 Potassium (3.5 - 5.1 mmol/L) 3.9 Chloride (98 - 107 mmol/L) 104 Carbon Dioxide (22 - 30 mmol/L) 25 Anion Gap (5 - 16) 10 BUN (9 - 20 mg/dL) 12 Creatinine (0.7 - 1.2 mg/dL) 0.5 L Estimated GFR (>60 ml/min) > 60 BUN/Creatinine Ratio (7 - 25 %) 24.0 Lactic Acid (0.7 - 2.1 mmol/L) 1.2 Hematology CBC w Diff NO MAN DIFF REQ WBC (4.8 - 10.8 /CUMM) 11.7 H RBC (4.70 - 6.10 /CUMM) 4.19 L Hgb (14.0 - 18.0 G/DL) 12.1 L Hct (42 - 52 %) 36.0 L MCV (80.0 - 94.0 FL) 85.9 MCH (27.0 - 31.0 PG) 29.0 MCHC (33.0 - 37.0 G/DL) 33.8 RDW (11.5 - 14.5 %) 13.9 Plt Count (130 - 400 /CUMM) 234 MPV (7.4 - 10.4 FL) 8.0 Gran % (42.2 - 75.2 %) 70.9 Lymphocytes % (20.5 - 51.1 %) 19.7 L Monocytes % (1.7 - 9.3 %) 5.8 Eosinophils % (0 - 5 %) 3.2 Basophils % (0.0 - 2.0 %) 0.4 Absolute Granulocytes (1.4 - 6.5 /CUMM) 8.3 H Absolute Lymphocytes (1.2 - 3.4 /CUMM) 2.3 Absolute Monocytes (0.10 - 0.60 /CUMM) 0.7 H Absolute Eosinophils (0.0 - 0.7 /CUMM) 0.4 Absolute Basophils (0.0 - 0.2 /CUMM) 0 Toxicology Urine Opiates Screen (>2000 NG/ML) > 4000.00 H Methadone Screen (>300 NG/ML) < 40 Barbiturate Screen (>200 NG/ML) < 60 Ur Phencyclidine Scrn (>25 NG/ML) < 6.00 Amphetamines Screen (>1000 NG/ML) < 100 U Benzodiazepines Scrn (>200 NG/ML) > 800 H Urine Cocaine Screen (>300 NG/ML) < 50 Urine Cannabis Screen (>50 NG/ML) > 80.00 H 02/08 02/08 1335 1212 Blood Gas Bicarbonate Actual (22 - 26 MEQ/L) 25 Mixed VBG pH (7.31 - 7.41 PH) 7.37 Mixed VBG pCO2 (41 - 51 TORR) 45 Mixed VBG O2 Saturation (35 - 45 TORR) 35 Carboxyhemoglobin (1.5 - 5.0 %) 1.0 L O2 Concentration % 3L O2 Delivery Method NC Chemistry Sodium (137 - 145 mmol/L) 139 Potassium (3.5 - 5.1 mmol/L) 3.9 Chloride (98 - 107 mmol/L) 99 Carbon Dioxide (22 - 30 mmol/L) 28 Anion Gap (5 - 16) 13 BUN (9 - 20 mg/dL) 14 Creatinine (0.7 - 1.2 mg/dL) 0.7 Estimated GFR (>60 ml/min) > 60 BUN/Creatinine Ratio (7 - 25 %) 20.0 Glucose (65 - 99 mg/dL) 113 H Calcium (8.4 - 10.2 mg/dL) 9.3 Magnesium (1.6 - 2.3 mg/dL) 1.8 Iron (49 - 181 ug/dL) 69 TIBC (261 - 462 ug/dL) 355 Ferritin (17.9 - 464 ng/mL) 147.0 Total Bilirubin (0.2 - 1.3 mg/dL) 1.0 AST (17 - 59 U/L) 26 ALT (21 - 72 U/L) 34 Alkaline Phosphatase (< 127 U/L) 85 Troponin I (<0.11 ng/ml) < 0.01 Total Protein (6.3 - 8.2 g/dL) 7.7 Albumin (3.5 - 5.0 g/dL) 4.2 Globulin (1.9 - 4.2 gm/dL) 3.5 Albumin/Globulin Ratio (1.1 - 2.2 %) 1.2 Hematology CBC w Diff NO MAN DIFF REQ WBC (4.8 - 10.8 /CUMM) 11.8 H RBC (4.70 - 6.10 /CUMM) 4.74 Hgb (14.0 - 18.0 G/DL) 13.6 L Hct (42 - 52 %) 39.9 L MCV (80.0 - 94.0 FL) 84.2 MCH (27.0 - 31.0 PG) 28.6 MCHC (33.0 - 37.0 G/DL) 34.0 RDW (11.5 - 14.5 %) 13.6 Plt Count (130 - 400 /CUMM) 289 MPV (7.4 - 10.4 FL) 7.2 L Gran % (42.2 - 75.2 %) 61.6 Lymphocytes % (20.5 - 51.1 %) 11.5 L Monocytes % (1.7 - 9.3 %) 7.8 Eosinophils % (0 - 5 %) 18.7 H Basophils % (0.0 - 2.0 %) 0.4 Absolute Granulocytes (1.4 - 6.5 /CUMM) 7.3 H Absolute Lymphocytes (1.2 - 3.4 /CUMM) 1.4 Absolute Monocytes (0.10 - 0.60 /CUMM) 0.9 H Absolute Eosinophils (0.0 - 0.7 /CUMM) 2.2 Absolute Basophils (0.0 - 0.2 /CUMM) 0 Miscellaneous Phlebotomy Draw Site LEFT RADIAL Toxicology Serum Alcohol (<10 MG/DL) < 10.0 Diffential Diagnosis: By report, anxiety disorder, unspecified, rule out substance induced mood disorder Benzodiazepine use disorder Opiate use disorder Cyclic vomiting syndrome, by report, secondary to prescribed cannabis Impression: The patient's account of his recent drug use is murky: 1. Confusion between alprazolam, which he thinks is prescribed and lorazepam ( Prescribed, per CT STRATEGIC PROCUREMENT MANAGER.) 2. The Percocet ws taken to help with insomnia, but the patient had reported he had inhaled part of the purchased bag of Percocet in the morning. He denies suicide attempt, and denies taking this for a "high." 3. He denies knowing that lorazepam and Percocets could suppress his breathing, especially in the setting of breathing difficulty. We do not think the patient made a suicide attempt, at this time. He had been seeing Dr. Covarrubias, technical sales specialist, in [place] for cyclic vomiting, had a trial on amitriptyline 25 mg PO 4X/day PRN, which did not help. He had a trial on trazodone 50 mg at bedtime for one month for insomnia, but stopped it due to vivid dreams. After this, he was trialed on lorzepam, which helped. The patient reports that he found quetiapine 50 mg PO at bedtime helpful for insomnia. It was last prescribed by his PCP in May,. The patient's stated goal is to detox from cannabis. He is asking about discharging to a rehab; he has attended [facility] in the past. If he remains on benzodiazepines (lorazepam) he could also consider an Intensive Outpatient Program (IOP) such as [facility]. The patient has given written permission to speak with is mother, Elvira Feliz, . LVM on a blind mailbox at [phone], requesting a return call to [phone] ([facility]). JOHN is in the chart. The patient's use of benzos is unclear, as we understand from the team that he has been buying them on the street, along with Percocet powder. We should continue to monitor and treat with the "ETOH Detox" order set, also used for benzo withdrawal to prevent seizures. EKG 02/08/18: ST, 108 bpm, QTc 455 mS. Potassium and magnesium WNL. Provisional Treatment Plan: 1. Continue CIWA monitoring for benzo withdrawal. 2. Continue lorazepam 1 mg PO q 6 hours for benzo withdrawal. Hold for oversedation or respiratory depression. Continue lorazepam PRN per CIWA scoring. 3. Consider melatonin 5 mg PO before bedtime, PRN, for insomnia. 4. If melatonin is ineffective for insomnia, or if the patient refuses, consider quetiapine/Seroquel 25 mg PO before bedtime, PRN, for insomnia. May repeat once. (Med claim shows quetiapine 50 mg X 2 tabs at bedtime) 5. If quetiapine is started, hold for oversedation or respiratory depression. Hold for hypomagnesemia or hypokalemia. Hold for QTc greater than 475 mS or arrhythmia. 6. Social work consult to assist with aftercare placement. We will continue to follow along and to assist the team with managing the patient's lorazepam taper. If any more accurate history of the patient's benzodiazepine use becomes available, please advise. We anticipate hearing from the patient's mother.
--- NOTE | 2018-02-09 14:16 | PN- Student ---
Subjective Subjective: There were no overnight events. Mr. Feliz reports increased ease of breathing, he has been recieving O2 via nasal canula. He reports feelings of anxiety and a more extensive history was obtained as he is more alert today. In addition to his trouble breathing he reports mucus production that is brown/green in coloration. He states that this only started yesterday. He reports having a restful and full sleep in his overnight stay. In addition he states that sleep in the past was an issue as he had difficulty falling asleep as well as staying asleep. In the past he tried Trazadone but stopped taking after 1 wk of lucid dreams and was switched to Serequel 50 mg. He has been on Serequel for 2 years. He adds that his depression and feelings of sadness started back in 2013 when he and his of 1 year were . He denies any headaches, n/v, abdominal pain, chest pain/tightness, palpitations, diarrhea or dizziness. Surgical Hx: Right ACL repair 10 years ago, Right foot fx repair (pins in place) 8 years ago, Adenoids removed, tonsilectomy, and bilateral myringotomy as a child. Fam Hx: mother- 69 living, breast cancer in remission. Father- 71 living, ETOH abuse x 35 years, currently sober, PR 2 years ago. Brother- 37 in apparent good health Social Hx: 2013, x 1 year Objective Objective: Current Medications Sig/Kye Start time Last Medication Dose Route Stop Time Status Admin Acetaminophen 650 MG Q6P PRN 02/08 1845 AC PO Albuterol Sulfate 3 ML EVERY 4 HRS/AWAKE 02/09 0800 AC 02/09 INH 1144 Albuterol Sulfate 3 ML ONCE ONE 02/08 1530 DC 02/08 INH 02/08 1531 1550 Albuterol Sulfate 3 ML ONCE ONE 02/08 1530 DC 02/08 INH 02/08 1531 1550 Albuterol Sulfate 3 ML ONCE ONE 02/08 1530 DC 02/08 INH 02/08 1531 1550 Ampicillin Sodium/ 3,000 MG Q6H 02/08 2100 AC 02/09 Sulbactam Sodium IV 0857 Sodium Chloride 100 ML Ampicillin Sodium/ 0 .STK-MED ONE 02/08 1820 DC Sulbactam Sodium .ROUTE Ampicillin Sodium/ 3,000 MG Q6 02/08 1800 DC Sulbactam Sodium IV Sodium Chloride 100 ML Azithromycin 500 MG ONCE ONE 02/08 1615 DC 02/08 Dextrose/Water 250 ML IV 02/08 1714 1750 Clonidine 0.1 MG Q6 PRN 02/08 1815 AC PO Enoxaparin Sodium 40 MG DAILY 02/08 1844 AC 02/09 SC 0857 Influenza Virus 0.5 ML ONCE ONE 02/08 1930 DC Vaccine IM 02/08 1931 Lorazepam 1 MG Q6 02/09 1200 AC 02/09 PO 1329 Lorazepam 1 MG BID 02/08 2200 DC 02/09 PO 0857 Lorazepam 2 MG Q2P PRN 02/08 1800 AC IV Lorazepam 1 MG Q2P PRN 02/08 1800 AC 02/09 IV 1333 Magnesium Sulfate 1 GM Q2H 02/08 1545 DC 02/08 Dextrose/Water 100 ML IV 02/08 1944 1731 Magnesium Sulfate 2 GM ONCE ONE 02/08 1530 CAN IV 02/08 1531 Naloxone HCl 0 .STK-MED ONE 02/08 1539 DC .ROUTE Naloxone HCl 0.4 MG ONCE ONE 02/08 1515 DC 04 IV 02/08 1516 1538 Sodium Chloride 1,000 ML Q13H 02/08 2000 AC 02/08 IV 2153 Sodium Chloride 1,000 ML BOLUS ONE 02/08 1745 DC 02/08 IV 02/08 1944 1905 Sodium Chloride 1,000 ML BOLUS ONE 02/08 1630 DC /08 IV 02/08 1729 1640 Sodium Chloride 1,000 ML BOLUS ONE 02/08 1330 DC 02/08 IV 02/08 1429 1335 Sodium Chloride 1,000 ML BOLUS ONE 02/08 1330 DC 08 IV 02/08 1429 1519 Laboratory Tests 02/09 02/08 02/08 0806 1820 1427 Chemistry Sodium (137 - 145 mmol/L) 139 Potassium (3.5 - 5.1 mmol/L) 3.9 Chloride (98 - 107 mmol/L) 104 Carbon Dioxide (22 - 30 mmol/L) 25 Anion Gap (5 - 16) 10 BUN (9 - 20 mg/dL) 12 Creatinine (0.7 - 1.2 mg/dL) 0.5 L Estimated GFR (>60 ml/min) > 60 BUN/Creatinine Ratio (7 - 25 %) 24.0 Lactic Acid (0.7 - 2.1 mmol/L) 1.2 Hematology CBC w Diff NO MAN DIFF REQ WBC (4.8 - 10.8 /CUMM) 11.7 H RBC (4.70 - 6.10 /CUMM) 4.19 L Hgb (14.0 - 18.0 G/DL) 12.1 L Hct (42 - 52 %) 36.0 L MCV (80.0 - 94.0 FL) 85.9 MCH (27.0 - 31.0 PG) 29.0 MCHC (33.0 - 37.0 G/DL) 33.8 RDW (11.5 - 14.5 %) 13.9 Plt Count (130 - 400 /CUMM) 234 MPV (7.4 - 10.4 FL) 8.0 Gran % (42.2 - 75.2 %) 70.9 Lymphocytes % (20.5 - 51.1 %) 19.7 L Monocytes % (1.7 - 9.3 %) 5.8 Eosinophils % (0 - 5 %) 3.2 Basophils % (0.0 - 2.0 %) 0.4 Absolute Granulocytes (1.4 - 6.5 /CUMM) 8.3 H Absolute Lymphocytes (1.2 - 3.4 /CUMM) 2.3 Absolute Monocytes (0.10 - 0.60 /CUMM) 0.7 H Absolute Eosinophils (0.0 - 0.7 /CUMM) 0.4 Absolute Basophils (0.0 - 0.2 /CUMM) 0 Toxicology Urine Opiates Screen (>2000 NG/ML) > 4000.00 H Methadone Screen (>300 NG/ML) < 40 Barbiturate Screen (>200 NG/ML) < 60 Ur Phencyclidine Scrn (>25 NG/ML) < 6.00 Amphetamines Screen (>1000 NG/ML) < 100 U Benzodiazepines Scrn (>200 NG/ML) > 800 H Urine Cocaine Screen (>300 NG/ML) < 50 Urine Cannabis Screen (>50 NG/ML) > 80.00 H Vital Signs Date Time Temp Pulse Resp B/P B/P Pulse O2 O2 Flow FiO2 Mean Ox Delivery Rate 02/09 0853 94 Nasal 1.0L Cannula 02/09 0800 Nasal 1.0L Cannula 02/09 0633 98.3 75 20 137/68 97 Nasal 2.0L Cannula 02/09 0000 Nasal 1.0L Cannula 02/08 2151 Nasal 1.0L Cannula 02/08 2142 98.6 94 18 122/74 96 Nasal 1.0L Cannula 02/08 1958 96 Nasal 1.0L Cannula 02/08 1913 97.9 101 22 128/78 97 Nasal 1.0L Cannula 02/08 174 68.8 110 20 134/75 96 Nasal 1.0L Cannula 02/08 1558 98 Nasal 3.0L Cannula 02/08 1518 103 28 138/81 99 Nasal 4.0L Cannula Intake & Output 02/09 1600 02/09 0800 02/09 0000 Intake Total 840 3665 Output Total 700 800 Balance 140 2865 Intake, IV 600 3425 Intake, Oral 240 240 Output, Urine 700 800 Patient 172 lb Weight Weight Bed scale Measurement Method Vital Signs Date Time Temp Pulse Resp B/P B/P Pulse O2 O2 Flow FiO2 Mean Ox Delivery Rate 02/10 0853 94 Nasal 1.0L Cannula 02/10 800 Nasal 1.0L Cannula 02/09 633 98.3 75 20 137/68 97 Nasal 2.0L Cannula 02/09 0000 Nasal 1.0L Cannula 02/08 2151 Nasal 1.0L Cannula 02/08 2142 98.6 94 18 122/74 96 Nasal 1.0L Cannula 02/08 1958 96 Nasal 1.0L Cannula 02/08 1913 97.9 101 22 128/78 97 Nasal 1.0L Cannula 02/08 174 68.8 110 20 134/75 96 Nasal 1.0L Cannula 02/08 1558 98 Nasal 3.0L Cannula 02/08 1518 103 28 138/81 99 Nasal 4.0L Cannula PE: Gen apperance: lethargic, cooperative, no acute distress, warm to touch CV: Regular rate and rhythym, normal s1&s2, no M/R/G Pulm: expiratory wheezes bilateral in posterior lung skelton, crackles over posterior left lung base, Greenish/brown sputum upon cough Abd: normal bowel sounds, soft, non-tender Extremities: no edema Assessment/Plan Assessment: Mr. Feliz is a 32 year old man with a pmhx significant for Asthma, cyclical vomiting syndrome and polysubstance abuse admited to the hospital yesterday for difficulty breathing and detox. Patient states that his difficulty breathing started yesterday. He adds that he is seeking rehabilitation from percocet drug abuse. For these issues he called his mother yesterday morning and asked her for help in seeking medical attention. He had previously been to [facility] for percocet detox with success 3 years ago. However he has subsequently relapsed 1.5 months ago. In addition to percocet he takes Lorazepam 1mg daily and medical Marijuana 3x daily for anxiety. Mr. Feliz admits to using lorazepam, percocet and an unknown substance which he snorted yesterday priror to coming in to the hospital. He states that he buys Percocet off the street and all othe medications he has a prescription for. He adds that he obtains these prescriptions through Dr. Callejas and Dr. Madrigal, with Dr. Madrigal based in [place] being his PMD. Plan: Problem list: 1. Aspiration Pneumonia 2. Polysubstance abuse 3. Anxiety/Depression #Aspiration Pneumonia: He is recieving O2 via nasal canula, IV antibiotics and IV fluids to treat possible aspiration pneumonia. He still has wheezing upon exhalation and crackles are present over the lower left lung base. However the patient does report that he has increased ease with breathing as of yesterday. His Venous blood gas was done yesterday in the ED and indicated a low mixed O2 saturation. -Continue supplemental Oxygen via nasal canula for low O2 sat on VBG as well as symptomatic -Obtain sputum culture -Continue broad spectrum abx IV for aspiration pneumonia -Obtain ABG if patient desaturates #Polysubstance abuse: Patient reports a long history of substance abuse stemming back to injuries sustained from sports in which he became addicted to prescription narcotics. He had previously been successful in detoxing, 3 years ago at [facility]. However over the past 1.5 months he reports increased anxiety leading to his relapse. -Maintain detox protocol -Taper Lorazepam -Clonidine for withdrawal -maintain detox program #Anxiety/Depression: Patient reports history of anxiety treated with prescription benzodiazapine, as well as marijuana. He also states that his anxiety and feelings of depression lead to most recently relapse. He also has a long history with sleep disturbances. -Psych consult -maintain detox program DVT prophylaxis with enoxaparin Regular diet Full code
[2018-02-09 14:22] VITALS: BP 120/82
[2018-02-09 21:09] VITALS: BP 134/81
[2018-02-09 21:54] VITALS: BP 134/81
--- NOTE | 2018-02-10 07:00 | PN- Housestaff ---
See Addendum Subjective Follow-up For: Aspiration pneumonia, polysubstance abuse/withdrawal Subjective: The patient did not sleep well last night. He also complains of abdominal upset/ pain. He was requesting pain medication. No breathing issues or chest pain. He was also asking to take a shower. Review of Systems Constitutional: Reports: no symptoms. EENTM: Reports: no symptoms. Cardiovascular: Reports: no symptoms. Respiratory: Reports: no symptoms. Gastrointestinal: Reports: see HPI. Genitourinary: Reports: no symptoms. Musculoskeletal: Reports: no symptoms. Skin: Reports: no symptoms. Neurological/Psychological: Reports: see HPI. Hematologic/Endocrine: Reports: no symptoms. Immunologic/Allergic: Reports: no symptoms. Objective Last 24 Hrs of Vital Signs/I&O Vital Signs Date Time Temp Pulse Resp B/P B/P Pulse O2 O2 Flow FiO2 Mean Ox Delivery Rate 02/094 98.2 98 20 134/81 98 Nasal 1.0L Cannula 02/09 2109 98.2 134/81 02/09 2105 108 120/82 02/09 1625 90 Nasal 1.0L Cannula 02/09 1600 Nasal 1.0L Cannula 02/09 1422 98.4 108 20 120/82 92 Nasal 1.0L Cannula 02/09 0853 94 Nasal 1.0L Cannula 02/09 0800 Nasal 1.0L Cannula Intake & Output 02/10 0800 02/10 0000 02/09 1600 Intake Total 1420 1700 1500 Output Total 2 1052 500 Balance 3295 050 1336 Intake, IV 700 800 600 Intake, Oral 720 900 900 Number 0 0 0 Bowel Movements Output, 2 2 Emesis Output, Urine 1050 500 Physical Exam General Appearance: Alert, Oriented X3, Cooperative, No Acute Distress Skin: No Rashes Cardiovascular: Regular Rate, Normal S1, Normal S2 Lungs: Clear to Auscultation, Normal Air Movement Abdomen: Normal Bowel Sounds, Soft, mild epigastric tenderness Extremities: No Edema, Normal Pulses, No Tenderness/Swelling Current Medications: Current Medications Sig/Kye Start time Last Medication Dose Route Stop Time Status Admin Acetaminophen 1,000 MG ONCE ONE 02/10 0045 DC 02/10 N/A 1 UNIT IV 02/10 0059 0100 Acetaminophen 650 MG Q6P PRN 02/08 1845 r PO Albuterol Sulfate 3 ML EVERY 4 HRS/AWAKE 02/09 0800 AC 02/09 INH 2035 Aluminum Hydroxide 30 ML ONCE ONE 02/10 0545 DC PO 02/10 0546 Ampicillin Sodium/ 3,000 MG Q6H 02/08 2100 AC 02/10 Sulbactam Sodium IV 0210 Sodium Chloride 100 ML Baclofen 10 MG Q6-PRN PRN 02/09 1600 AC 02/09 PO 2106 Clonidine 0.1 MG Q6 PRN 02/08 1815 AC 02/09 PO 2105 Dicyclomine HCl 20 MG 4 TIMES/DAY PRN 02/09 1600 AC 02/09 PO 2242 Diphenhydramine HCl 25 MG ONCE ONE 02/10 0200 DC 02/10 PO 02/10 0201 0210 Enoxaparin Sodium 40 MG DAILY 02/08 1844 AC 02/09 SC 0857 Hydroxyzine HCl 50 MG Q6-PRN PRN 02/09 1600 AC 02/10 PO 0407 Ibuprofen 600 MG Q6P PRN 02/10 0700 UNVr PO Lorazepam 1 MG Q6 02/09 1200 AC 02/10 PO 0556 Lorazepam 1 MG BID 02/08 2200 DC 02/09 PO 0857 Lorazepam 2 MG Q2P PRN 02/08 1800 AC 02/09 IV 2253 Lorazepam 1 MG Q2P PRN 02/08 1800 AC 02/10 IV 0408 Melatonin 5 MG AT BEDTIME 02/09 2200 AC 02/09 PO 2243 Multivitamins 1 TAB DAILY 02/09 1549 AC 02/09 PO 1655 Ondansetron HCl 4 MG ONCE ONE 02/09 2345 DC 02/10 IV 02/09 2346 0005 Patient Medication 1 ED ONE ONE 02/09 1500 DC 02/09 Teaching ED 02/09 1501 1615 Quetiapine Fumarate 50 MG AT BEDTIME PRN 02/10 0657 UNVr PO Quetiapine Fumarate 25 MG AT BEDTIME PRN 02/09 1545 DC 02/10 PO 0027 Sodium Chloride 1,000 ML Q13H 02/08 2000 AC 02/09 IV 2243 Last 24 Hrs of Lab/Nabil Results Last 24 Hrs of Labs/Mics: Laboratory Tests 02/09/18 0806: Anion Gap 10, Estimated GFR > 60, BUN/Creatinine Ratio 24.0, CBC w Diff NO MAN DIFF REQ, RBC 4.19 L, MCV 85.9, MCH 29.0, MCHC 33.8, RDW 13.9, MPV 8.0, Gran % 70.9, Lymphocytes % 19.7 L, Monocytes % 5.8, Eosinophils % 3.2, Basophils % 0.4 , Absolute Granulocytes 8.3 H, Absolute Lymphocytes 2.3, Absolute Monocytes 0.7 H, Absolute Eosinophils 0.4, Absolute Basophils 0 Assessment/Plan Assessment: Mr. 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 Problem list: 1. Aspiration pneumonia 2. Polysubstance abuse 3. Anxiety 4. Normocytic anemia 5. Acute hypoxic respiratory failure #Aspiration pneumonia: Patient was very somnolent on admission, crackles on exam , and chest x-ray findings consistent with possible aspiration pneumonia. He also had leukocytosis and tachycardia and hypoxia. His breathing is improving though he is still using oxygen. -Ampicillin/sulbactam, day 3 -TRC nebs -Oxygen therapy #Polysubstance abuse: Patient has history of polysubstance abuse and will likely need rehabilitation after medically stabilized. Patient scoring very high on CIWA, 516. He is also having GI upset and is asking for a shower, likely due to cyclical vomiting syndrome. -Lorazepam 1 mg every 6 hours -CIWA protocol -Clonidine as necessary -Hydroxyzine 50 mg every 6 when necessary anxiety, dicyclomine 20 mg 4 times a day when necessary GI upset, baclofen 10 mg every 6 when necessary muscle cramps -Ibuprofen 600 mg every 6 hours for pain -Quetiapine 50 mg at bedtime when necessary insomnia -Appreciate psychiatry recommendations -Social work consult #Normocytic anemia: Iron studies are normal. -Continue to monitor DVT prophylaxis with enoxaparin Regular diet Full code Problem List: 1. Aspiration pneumonia Pain Ratin Pain Location: GI Pain Goal: Remain pain free Pain Plan: see a/p Tomorrow's Labs & Rationales: cbc
[2018-02-10 07:07] VITALS: BP 143/96
[2018-02-10 07:57] LABS: ABSOLUTE BASOPHIL COUNT 0 /CUMM (0.0-0.2); ABSOLUTE EOSINOPHIL COUNT 0 /CUMM (0.0-0.7); ABSOLUTE GRANULOCYTE CT 8.1 /CUMM (1.4-6.5); ABSOLUTE LYMPH COUNT 1.1 /CUMM (1.2-3.4); ABSOLUTE MONOCYTE COUNT 0.4 /CUMM (0.10-0.60); BASOPHIL % 0.1 % (0.0-2.0); EOSINOPHIL % 0.1 % (0-5); MEAN CORPUSCULAR HGB 28.5 PG (27.0-31.0); MEAN CORPUSCULAR HGB CONC 33.6 G/DL (33.0-37.0); MEAN CORPUSCULAR VOLUME 85.1 FL (80.0-94.0); MEAN PLATELET VOLUME 8.3 FL (7.4-10.4); PLATELET COUNT 221 /CUMM (130-400); RBC DISTRIBUTION WIDTH 13.6 % (11.5-14.5); RED BLOOD CELL CT 4.35 /CUMM (4.70-6.10); WHITE BLOOD CELL COUNT 9.6 /CUMM (4.8-10.8)
[2018-02-10 08:43] LABS: GRANULOCYTE % 84.4 % (42.2-75.2)
[2018-02-10 11:17] VITALS: BP 156/76
[2018-02-10 14:09] VITALS: BP 146/96
--- NOTE | 2018-02-10 14:11 | PN- Student ---
Subjective Subjective: Mr. Feliz reports he had poor sleep last night and has had vomitting x3 episodes. He also reports some epigastric pain throughout the upper quandrants but more intense midline. He reports the pain as a 7-8/10 on the pain scale and describes it as constant with intermittent sharp quality to it. He reports that his breathing has improved and is currently off of supplemental oxygen. He requests to take a shower. He also reports some horizontal diplopia. Objective Objective: Laboratory Tests 02/11 716 Hematology CBC w Diff NO MAN DIFF REQ WBC (4.8 - 10.8 /CUMM) 9.6 RBC (4.70 - 6.10 /CUMM) 4.35 L Hgb (14.0 - 18.0 G/DL) 12.4 L Hct (42 - 52 %) 37.0 L MCV (80.0 - 94.0 FL) 85.1 MCH (27.0 - 31.0 PG) 28.5 MCHC (33.0 - 37.0 G/DL) 33.6 RDW (11.5 - 14.5 %) 13.6 Plt Count (130 - 400 /CUMM) 221 MPV (7.4 - 10.4 FL) 8.3 Gran % (42.2 - 75.2 %) 84.4 H Lymphocytes % (20.5 - 51.1 %) 11.1 L Monocytes % (1.7 - 9.3 %) 4.3 Eosinophils % (0 - 5 %) 0.1 Basophils % (0.0 - 2.0 %) 0.1 Absolute Granulocytes (1.4 - 6.5 /CUMM) 8.1 H Absolute Lymphocytes (1.2 - 3.4 /CUMM) 1.1 L Absolute Monocytes (0.10 - 0.60 /CUMM) 0.4 Absolute Eosinophils (0.0 - 0.7 /CUMM) 0 Absolute Basophils (0.0 - 0.2 /CUMM) 0 Vital Signs Date Time Temp Pulse Resp B/P B/P Pulse O2 O2 Flow FiO2 Mean Ox Delivery Rate 02/10 1117 59 156/76 02/10 0831 93 Room Air 02/10 0707 98.4 66 20 143/96 96 Room Air 02/09 2154 98.2 98 20 134/81 98 Nasal 1.0L Cannula 02/099 98.2 134/81 04/09 2105 108 120/82 02/09 1625 90 Nasal 1.0L Cannula 02/09 1600 Nasal 1.0L Cannula 02/09 1422 98.4 108 20 120/82 92 Nasal 1.0L Cannula Intake & Output 02/10 1600 02/10 0800 02/10 0000 Intake Total 1420 1700 Output Total 2 1052 Balance 1418 648 Intake, IV 700 800 Intake, Oral 720 900 Number 0 0 Bowel Movements Output, 2 2 Emesis Output, Urine 1050 PE: Gen apperance: No acute distress, resting in hospital bed HEENT: dilated pupils bilaterally, normal appearing fundus and optic nerve bilaterally CV: normal S1 & S2, no M/R/G Pulm: Lungs clear to ausculation in posterior lung skelton Abd: Hypoactive bowel sounds, Hyperresonant upon percussion in epigastric region /RUQ/LUQ, tympanic sounds in LLQ, RLQ, no rebound tenderness or guarding, tenderness upon palpation in epigastric region Extremities: No evidence of peripheral edema Neuro: non-painful, slight esotropia of right eye upon upward gaze, pupillary light reflex intact, consentual light reflex intact Assessment/Plan Assessment: Mr. Feliz is a 32 year old male with a past medical history significant for Asthma, polysubstance abuse and cyclical vomiting syndrome who presented with difficulty breathing and seeking detox from Percocet and benzodiazepines. Patient tested postive on urine toxicology for percocet, benzodiazepines and cannabis. Mr. Feliz admitted to and has been up front about his percocet, lorazpam and marijuana use. He has had a succeful rehabilitation 3 years ago at [facility] and is seeking similar treatment after relapse 1.5 months ago. He was admitted to the medical floor on 02/08/18, for suspected aspiration pneumonia and polysubstance detox. Today Mr. Feliz reports epigastric abdominal pain, n/v x3 episodes, diplopia and poor sleep. Plan: Problem list: 1. Resolving aspiration pneumonia 2. Polysubstance deox 3. Abdominal pain 4. Diplopia 5. Anxiety 6. Insomnia #Resolving aspiration pneumonia: Patient reports increased ease of breathing, and no longer requires supplemental oxygen. His CBC today also indicates that the infection is resolving in addition to his lungs sounding clear on ausculatation. As his symptoms have improved with antibiotic therapy, this supports the diagnosis of bacterial pneumonia. He also does not report sputum production today. He continues to be afebrile. -Continue antibiotic treatment course -discontinue supplemental Oxygen -repeat CBC tomorrow -continue Albuterol inhaler #Polysubstance detox: Patient has a long history of polysubstance abuse which he previously was at [facility] 3 years ago. He relapsed 1.5 months ago and is seeking detox from percocet and lorazapam. -Continue detox protocol -Clonidine PRN -Lorazapam taper -follow psych reccomendations #Abdominal pain: Patient has epigastric pain and reports 3 episodes of vomiting last night. He does have a history of cannabis induced cyclical vomiting syndrome which is likely due to his chronic use of marijuana. He stated that he has a prescription for medical marijuana for anxiety. He has not recieved marijuana in house, and it is likely due to withdrawl of his cannabis use. SBO was a consideration as he had decreased bowel sounds. However he reports having a bowel movement yesterday without difficulty and that it was formed stool. -Zofran IV for his n/v -NPO #Diplopia: Patient reported double vision this afternoon after morning rounds. He did present with abrasions on his face which he suspects is from a fall at home but due to drug induced state did not recall events from the night before. He has had no other neurological complaints up until this time. On PE there was esotropia upon upward gaze, however his pupillary reflexes were intact. It is only upon upward gaze that the patient reports diplopia. He will be evaluated for potential hemorrhage, or this may be related to the unkown substance the patient used prior to admission. -CT of the head without contrast -continue to monitor for neurological deficits #Anxiety:Patient does report a previous diagnosis of anxiety and continued symptoms of feeling anxious. -Hydroxyzine -Lorazapam taper -Follow psych reccomendations. #Insomnia: Patient reports a history of difficulty sleeping for which he takes Seroquel at home. He states that he did not sleep last night. This may be due to withdrawl, may more likely to do with his current symptoms of cyclical vomiting syndrome. -Tx n/v with Zofran -Continue detox protocol -Quetiapine fumarate (seroquel) at night for sleep aid
--- NOTE | 2018-02-10 18:11 | CT SCAN REPORT ---
EXAMINATION: CT HEAD WITHOUT CONTRAST CLINICAL INFORMATION: Horizontal diplopia on upgaze with esotropia COMPARISON: Status post fall. TECHNIQUE: Contiguous axial imaging was performed from the skull base to vertex without intravenous administration of contrast. DLP: 627 mGy-cm FINDINGS: There is no evidence of acute intracranial hemorrhage or territorial infarction. No abnormal mass effect or midline shift is seen. Dudley to white matter differentiation is well preserved. No extra-axial fluid collections are identified. The ventricles are normal in size. There is no abnormal attenuation within the brain parenchyma. The osseous structures and soft tissues are normal. The mastoid air cells are well aerated. There is mild mucosal thickening in the ethmoid sinus air cells. Small retention cysts are visible in the left maxillary and right sphenoid sinuses. IMPRESSION: No acute intracranial pathology.
--- NOTE | 2018-02-10 18:45 | Cons- Neurology ---
General Information and HPI Consulting Request Date of Consult: 02/10/18 Requested By: Carol Ann Del Real MD Reason for Consult: diplopia Source of Information: patient, EMR History of Present Illness: 32 y o M reports diplopia w/ onset sometime this am. 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 When he looks up close or closes one eye, the diplopia disappears. No POLK, no eye pain, no vertigo. Past medical history significant for asthma, long-standing history of polysubstance abuse with previous attempts at rehabilitation rehabilitation, admitted with aspiration pneumonia. U tox positive for narcotics, benzos & cannabis. Allergies/Medications Allergies: Coded Allergies: No Known Allergies (02/08/18) Home Med List: Quetiapine Fumarate 50 MG TABLET 1 TAB PO QPM MENTAL HEALTH (Reported) Current Medications: Current Medications Sig/Kye Start time Last Medication Dose Route Stop Time Status Admin Acetaminophen 1,000 MG ONCE ONE 02/10 0045 DC 02/10 N/A 1 UNIT IV 02/10 0059 0100 Acetaminophen 650 MG Q6P PRN 02/08 1845 AC PO Albuterol Sulfate 3 ML EVERY 4 HRS/AWAKE 02/09 0800 AC 02/10 INH 1627 Aluminum Hydroxide 30 ML ONCE ONE 02/10 0545 DC PO 02/10 0546 Ampicillin Sodium/ 3,000 MG Q6H 02/08 2100 AC 02/10 Sulbactam Sodium IV 1439 Sodium Chloride 100 ML Baclofen 10 MG Q6-PRN PRN 02/09 1600 AC 02/09 PO 2106 Clonidine 0.1 MG Q6 PRN 02/08 1815 AC 02/09 PO 2105 Dicyclomine HCl 20 MG 4 TIMES/DAY PRN 02/09 1600 AC 02/10 PO 0950 Diphenhydramine HCl 25 MG ONCE ONE 02/10 0200 DC 02/10 PO 02/10 0201 0210 Enoxaparin Sodium 40 MG DAILY 02/08 1844 AC 02/10 SC 0951 Hydroxyzine HCl 50 MG Q6-PRN PRN 02/09 1600 AC 02/10 PO 0407 Ibuprofen 600 MG Q6P PRN 02/10 0700 AC PO Lorazepam 1 MG Q6 02/09 1200 AC 02/10 PO 1758 Lorazepam 2 MG Q2P PRN 02/08 1800 AC 02/09 IV 2253 Lorazepam 1 MG Q2P PRN 02/08 1800 AC 02/10 IV 1253 Melatonin 5 MG AT BEDTIME 02/09 2200 AC 02/09 PO 2243 Multivitamins 1 TAB DAILY 02/09 1549 AC 02/10 PO 0951 Ondansetron HCl 4 MG Q6P PRN 02/10 1015 AC 02/10 IV 1048 Ondansetron HCl 4 MG .STK-MED ONE 02/10 0002 DC IM 02/10 0003 Ondansetron HCl 4 MG ONCE ONE 02/09 2345 DC 02/10 IV 02/09 2346 0005 Quetiapine Fumarate 50 MG AT BEDTIME NEED.. 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 Home Smoking Status: Never Smoked ETOH Use: occasional use Illicit Drug Use: PERCOCET Exam & Diagnostic Data Vital Signs and I&O Vital Signs Date Time Temp Pulse Resp B/P B/P Pulse O2 O2 Flow FiO2 Mean Ox Delivery Rate 02/10 1629 95 Room Air Room Air 02/10 1409 97.7 64 18 146/96 96 Nasal 1.0L Cannula 02/10 1117 59 156/76 02/10 0831 93 Room Air 02/10 0707 98.4 66 20 143/96 96 Room Air 02/09 2154 98.2 98 20 134/81 98 Nasal 1.0L Cannula 02/09 2109 98.2 134/81 02/09 2105 108 120/82 Intake & Output 02/10 1600 02/10 0800 02/10 0000 Intake Total 840 1420 1700 Output Total 2 1052 Balance 840 1418 648 Intake, IV 600 700 800 Intake, Oral 240 720 900 Number 0 0 0 Bowel Movements Output, 2 2 Emesis Output, Urine 1050 Physical Exam: Awake alert cooperative Head normocephalic several forehead excoriations Neck supple heart regular rate and rhythm extremities without clubbing cyanosis or edema; intact peripheral pulses Neurologic exam: Awake, alert, oriented to person place and time speech fluent with intact naming repetition and comprehension Cranial nerves: Fundi benign Pupils ~4.5 mm, reactive to light extraocular movements full no nystagmus (when I occluded his L eye, he reported diplopia) No ptosis facial movements symmetric The uvula and palate elevated symmetrically the tongue protruded to midline shoulder shrug was symmetric hearing intact to finger of motor: Normal muscle bulk, tone, strength. No abnormal involuntary movements coordination intact on finger-nose and [id number] testing sensation of light touch intact deep tendon reflexes symmetrically trace to 1+ plantar responses flexor Gait normal Last 48 Hours of Lab Results: Laboratory Tests 02/10 02/09 0716 0806 Chemistry Sodium (137 - 145 mmol/L) 139 Potassium (3.5 - 5.1 mmol/L) 3.9 Chloride (98 - 107 mmol/L) 104 Carbon Dioxide (22 - 30 mmol/L) 25 Anion Gap (5 - 16) 10 BUN (9 - 20 mg/dL) 12 Creatinine (0.7 - 1.2 mg/dL) 0.5 L Estimated GFR (>60 ml/min) > 60 BUN/Creatinine Ratio (7 - 25 %) 24.0 TSH (0.270 - 4.200 uIU/mL) 0.287 Free T4 (0.79 - 2.35 ng/dL) 1.51 Hematology CBC w Diff NO MAN DIFF REQ NO MAN DIFF REQ WBC (4.8 - 10.8 /CUMM) 9.6 11.7 H RBC (4.70 - 6.10 /CUMM) 4.35 L 4.19 L Hgb (14.0 - 18.0 G/DL) 12.4 L 12.1 L Hct (42 - 52 %) 37.0 L 36.0 L MCV (80.0 - 94.0 FL) 85.1 85.9 MCH (27.0 - 31.0 PG) 28.5 29.0 MCHC (33.0 - 37.0 G/DL) 33.6 33.8 RDW (11.5 - 14.5 %) 13.6 13.9 Plt Count (130 - 400 /CUMM) 221 234 MPV (7.4 - 10.4 FL) 8.3 8.0 Gran % (42.2 - 75.2 %) 84.4 H 70.9 Lymphocytes % (20.5 - 51.1 %) 11.1 L 19.7 L Monocytes % (1.7 - 9.3 %) 4.3 5.8 Eosinophils % (0 - 5 %) 0.1 3.2 Basophils % (0.0 - 2.0 %) 0.1 0.4 Absolute Granulocytes (1.4 - 6.5 /CUMM) 8.1 H 8.3 H Absolute Lymphocytes (1.2 - 3.4 /CUMM) 1.1 L 2.3 Absolute Monocytes (0.10 - 0.60 /CUMM) 0.4 0.7 H Absolute Eosinophils (0.0 - 0.7 /CUMM) 0 0.4 Absolute Basophils (0.0 - 0.2 /CUMM) 0 0 Imaging/Other Studies: PATIENT: JULIO ARORA PRESENT AGE: 32 PATIENT ACCOUNT NO: [id number] : 84 LOCATION: [facility] ORDERING PHYSICIAN: Miki Howard MD SERVICE DATE: 02/10/18- EXAM TYPE: CAT - CT HEAD WO IV CONTRAST EXAMINATION: CT HEAD WITHOUT CONTRAST CLINICAL INFORMATION: Horizontal diplopia on upgaze with esotropia COMPARISON: Status post fall. TECHNIQUE: Contiguous axial imaging was performed from the skull base to vertex without intravenous administration of contrast. DLP: 627 mGy-cm FINDINGS: There is no evidence of acute intracranial hemorrhage or territorial infarction. No abnormal mass effect or midline shift is seen. Dudley to white matter differentiation is well preserved. No extra-axial fluid collections are identified. The ventricles are normal in size. There is no abnormal attenuation within the brain parenchyma. The osseous structures and soft tissues are normal. The mastoid air cells are well aerated. There is mild mucosal thickening in the ethmoid sinus air cells. Small retention cysts are visible in the left maxillary and right sphenoid sinuses. IMPRESSION: No acute intracranial pathology. DICTATED BY: Riccardo Gaines MD DATE/TIME DICTATED:02/10/181802 JACKET CHANGER:CLOVER DATE/TIME TRANSCRIBED:02/10/181802 Assessment/Plan Assessment: ? binocular diplopia but normal neurologic exam He is on several medications that have anticholinergic effects. This may be contributing to some visual blurring, but there are no extraocular motility deficits that would explain his binocular horizontal diplopia Recommendations: try cutting back on antihistamine and neuroleptic medications Outpt eye exam if symptoms persist Consult Acknowledgment - Thank you for your consult request.
[2018-02-10 23:10] VITALS: BP 139/89
--- NOTE | 2018-02-11 06:48 | PN- Housestaff ---
See Addendum Subjective Follow-up For: Aspiration pneumonia, polysubstance abuse Subjective: No overnight events. Patient says that he is a little better this morning, now on room air and breathing well. His double vision is still there sometimes but still has no blurry vision or dizziness. His nausea and GI issues have improved as well. He is asking about when he can leave to go to rehabilitation. Review of Systems Constitutional: Reports: no symptoms. EENTM: Reports: no symptoms. Cardiovascular: Reports: no symptoms. Respiratory: Reports: no symptoms. Gastrointestinal: Reports: see HPI. Genitourinary: Reports: no symptoms. Musculoskeletal: Reports: no symptoms. Skin: Reports: no symptoms. Neurological/Psychological: Reports: see HPI. Hematologic/Endocrine: Reports: no symptoms. Immunologic/Allergic: Reports: no symptoms. Objective Last 24 Hrs of Vital Signs/I&O Vital Signs Date Time Temp Pulse Resp B/P B/P Pulse O2 O2 Flow FiO2 Mean Ox Delivery Rate 02/11 0000 Room Air 02/10 2310 98.9 55 20 139/89 94 Room Air 02/10 1629 95 Room Air Room Air 02/10 1409 97.7 64 18 146/96 96 Nasal 1.0L Cannula 02/10 1117 59 156/76 02/10 0831 93 Room Air 02/10 0707 98.4 66 20 143/96 96 Room Air Intake & Output 02/11 0800 02/11 0000 02/10 1600 Intake Total 1080 1280 840 Output Total Balance 1080 1280 840 Intake, IV 600 300 600 Intake, Oral 480 980 240 Number 1 0 Bowel Movements Physical Exam General Appearance: Alert, Oriented X3, Cooperative, No Acute Distress Cardiovascular: Regular Rate, Normal S1, Normal S2 Lungs: mild wheezing Abdomen: Normal Bowel Sounds, Soft, No Tenderness Extremities: No Edema, Normal Pulses, No Tenderness/Swelling Current Medications: Current Medications Sig/Kye Start time Last Medication Dose Route Stop Time Status Admin Acetaminophen 650 MG Q6P PRN 02/08 1845 AC PO Albuterol Sulfate 3 ML EVERY 4 HRS/AWAKE 02/09 0800 AC 02/10 INH 2021 Ampicillin Sodium/ 3,000 MG Q6H 02/08 2100 AC 02/11 Sulbactam Sodium IV 0247 Sodium Chloride 100 ML Baclofen 10 MG Q6-PRN PRN 02/09 1600 AC 02/09 PO 2106 Clonidine 0.1 MG Q6 PRN 02/08 1815 AC 02/09 PO 2105 Dicyclomine HCl 20 MG 4 TIMES/DAY PRN 02/09 1600 AC 02/10 PO 0950 Enoxaparin Sodium 40 MG DAILY 02/08 1844 AC 02/10 SC 0951 Hydroxyzine HCl 50 MG Q6-PRN PRN 02/09 1600 AC 02/10 PO 0407 Ibuprofen 600 MG Q6P PRN 02/10 0700 AC PO Lorazepam 1 MG Q6 02/09 1200 AC 02/11 PO 0510 Lorazepam 2 MG Q2P PRN 02/08 1800 AC 02/09 IV 2253 Lorazepam 1 MG Q2P PRN 02/08 1800 AC 02/10 IV 1253 Melatonin 5 MG AT BEDTIME 02/09 2200 AC 02/10 PO 2232 Multivitamins 1 TAB DAILY 02/09 1549 AC 02/10 PO 0951 Ondansetron HCl 4 MG Q6P PRN 02/10 1015 AC 02/10 IV 1048 Quetiapine Fumarate 50 MG AT BEDTIME NEED.. 02/10 0657 AC 02/10 PO 2233 Quetiapine Fumarate 25 MG AT BEDTIME PRN 02/09 1545 DC 02/10 PO 0027 Sodium Chloride 1,000 ML Q13H 02/08 2000 AC 02/10 IV 2233 Last 24 Hrs of Lab/Nabil Results Last 24 Hrs of Labs/Mics: Laboratory Tests 02/10/18 0716: CBC w Diff NO MAN DIFF REQ, RBC 4.35 L, MCV 85.1, MCH 28.5, MCHC 33.6, RDW 13.6 , MPV 8.3, Gran % 84.4 H, Lymphocytes % 11.1 L, Monocytes % 4.3, Eosinophils % 0.1, Basophils % 0.1, Absolute Granulocytes 8.1 H, Absolute Lymphocytes 1.1 L, Absolute Monocytes 0.4, Absolute Eosinophils 0, Absolute Basophils 0 Assessment/Plan Assessment: Mr. 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 Problem list: 1. Aspiration pneumonia 2. Polysubstance abuse 3. Anxiety 4. Normocytic anemia 5. Acute hypoxic respiratory failure 6. Acute horizontal diplopia #Aspiration pneumonia: Patient was very somnolent on admission, crackles on exam , and chest x-ray findings consistent with possible aspiration pneumonia. He also had leukocytosis and tachycardia and hypoxia. His breathing is improving, now off oxygen. -Ampicillin/sulbactam, day 4. Consider switching to by mouth amox/clauv -TRC nebs -Oxygen therapy #Polysubstance abuse: Patient has history of polysubstance abuse and will likely need rehabilitation after medically stabilized. His withdrawal symptoms seem to be improving. His CIWA score was 68 overnight and he required 6 mg of lorazepam in the past before hours. He did get some sleep last night -Lorazepam 1 mg every 6 hours, consider tapering -CIWA protocol -Clonidine as necessary -Hydroxyzine 50 mg every 6 when necessary anxiety, dicyclomine 20 mg 4 times a day when necessary GI upset, baclofen 10 mg every 6 when necessary muscle cramps -Ibuprofen 600 mg every 6 hours for pain -Quetiapine 50 mg at bedtime when necessary insomnia -Appreciate psychiatry recommendations -Social work consult #Acute horizontal diplopia: Patient was complaining of horizontal diplopia that was worse with upgaze. On exam, his right eye deviated inward on upgaze. He says he is still having some diplopia but it is improving. Head CT yesterday was negative and neurology evaluated as well. They recommended outpatient ophthalmology referral. -Outpatient ophthalmology referral if it persists #Normocytic anemia: Iron studies are normal. -Continue to monitor DVT prophylaxis with enoxaparin Regular diet Full code Problem List: 1. Aspiration pneumonia Pain Ratin Pain Location: no Pain Goal: Remain pain free Pain Plan: see a/p Tomorrow's Labs & Rationales: no
[2018-02-11 06:54] VITALS: BP 138/70
--- NOTE | 2018-02-11 13:57 | PN- Student ---
Subjective Subjective: There were no overnight events. Patient states that he slept 5 hours and woke up feeling well rested. He also reports improved breathing with little mucus production which he states is clear now. He does continue to have visual difficulties and reports double vision when he looks up. Additionally his abdominal pain has improved and is no longer having any n/v. He had a bowel movement this morning, and reports that it was "normal" in color and consistency. Mr. Feliz is inquiring about discharge and states he would like to leave by this weekend so that he can set things up with work. He reports that he is not experiencing any chest pain, SOB, chest tightness, dizziness, constipation or dysuira. Objective Objective: Current Medications Sig/Kye Start time Last Medication Dose Route Stop Time Status Admin Acetaminophen 650 MG Q6P PRN 02/08 1845 AC PO Albuterol Sulfate 3 ML EVERY 4 HRS/AWAKE 02/09 0800 AC 02/11 INH 1203 Amoxicillin/ 875 MG Q12 02/11 1000 AC 02/11 Clavulanate Potassium PO 1217 Ampicillin Sodium/ 3,000 MG Q6H 02/08 2100 DC 02/11 Sulbactam Sodium IV 0247 Sodium Chloride 100 ML Baclofen 10 MG Q6-PRN PRN 02/09 1600 AC 02/09 PO 2106 Clonidine 0.1 MG Q6 PRN 02/08 1815 AC 02/09 PO 2105 Dicyclomine HCl 20 MG 4 TIMES/DAY PRN 02/09 1600 AC 02/10 PO 0950 Enoxaparin Sodium 40 MG DAILY 02/08 1844 AC 02/11 SC 1217 Hydroxyzine HCl 50 MG Q6-PRN PRN 02/09 1600 AC 02/10 PO 0407 Ibuprofen 600 MG Q6P PRN 02/10 0700 AC PO Lorazepam 1 MG Q8 02/11 1400 AC PO Lorazepam 1 MG Q6 02/09 1200 DC 02/11 PO 0510 Lorazepam 2 MG Q2P PRN 02/08 1800 AC 02/09 IV 2253 Lorazepam 1 MG Q2P PRN 02/08 1800 AC 02/10 IV 1253 Melatonin 5 MG AT BEDTIME 02/09 2200 AC 02/10 PO 2232 Multivitamins 1 TAB DAILY 02/09 1549 AC 02/11 PO 1217 Omeprazole 20 MG DAILY AC 02/11 0815 AC 02/11 PO 0807 Ondansetron HCl 4 MG Q6P PRN 02/10 1015 AC 02/10 IV 1048 Quetiapine Fumarate 50 MG AT BEDTIME NEED.. 02/10 0657 AC 02/10 PO 2233 Sodium Chloride 1,000 ML Q13H 02/09 2000 DC 02/10 IV 2233 Vital Signs Date Time Temp Pulse Resp B/P B/P Pulse O2 O2 Flow FiO2 Mean Ox Delivery Rate 02/11 0840 94 Room Air 02/11 0654 98.1 59 18 138/70 94 Room Air 02/11 0000 Room Air 02/10 2310 98.9 55 20 139/89 94 Room Air 02/10 1629 95 Room Air Room Air 02/10 1409 97.7 64 18 146/96 96 Nasal 1.0L Cannula Intake & Output 02/11 1600 02/11 0800 02/11 0000 Intake Total 1080 1280 Output Total Balance 1080 1280 Intake, IV 600 300 Intake, Oral 480 980 Number 1 Bowel Movements PE: Gen apperance: no acute distress, resting on bed comfortably, AOx3 CV: normal rate and rhythym, normal S1&S2, no M/R/G Pulm: lungs clear to ausculation in posterior lung skelton Abd: normal bowel sounds, tympanic on percussion, epigastric tenderness on palpation Extremities: no peripheral edema, rashes or ecchymosis Assessment/Plan Assessment: Mr. Feliz is a 32 year old male with a past medical history significant for asthma, polysubstance abuse and cyclical vomiting syndrome presented to the ED on 02/08/18 with difficulty breathing and seeking polysubstance rehabilitation. Subsequently he was admitted to medicine for his acute drug detox and suspected aspiration pneumonia. Mr. Rodas tested positive for benzodiazapine, narcotics, and cannabis on urine toxicology screening. He has been up front and admitted to using these substances prior to coming in to the hospital as well as an unknown crushed up substance by nasal inhalation given to him by his drug dealer. Prior to this Mr. Feliz was at [facility] 3 years ago and successfully rehabilitated with this most recent relapse occuring 1.5 months ago. Over the course of his stay Mr. Feliz has reported some epigastric discomfort and horizontal diplopia upon upward gaze. Plan: Problem list: 1. Aspiration Pneumonia 2. Polysubstance detox 3. Abdominal Pain 4. Nausea/Vomiting 5. Horizontal diplopia upon upward gaze 6. normocytic anemia 7. Insomnia #Aspiration pneumonia:Since he has been admitted his breathing has improved with abx treatment and supplemental oxygen. As of yesterday he has been off supplemental oxygen and breathing well. Patient reports sputum production now is minimal and clear. CBC indicates resolving leukocytosis. -DC IV abx -continue/complete course of Augmentin therapy oral medication -Albuterol PRN for his ongoing Asthma #Polysubstance detox: He has been under CIWA protocol during his entire hospitalization and overnight his scores were in the range of 6-8 with this morning scoring 0. He is seeking detox from lorazapam and percocet. -continue detox protocol and CIWA -taper lorazapam -clonidine for symptoms of withdrawl #Abdominal pain:Mr. Feliz reports epigastric pain over the past 2 days. Today he disclosed that he has a history of acid reflux for which he takes OTC omeprazole. -Omeprazole -continue normal diet #Nausea/vomiting: His n/v has improved with Zofran. This is likely due to his cyclical vomiting syndrome. May also be an element of withdrawl from narcotic medicaiton. -continue Zofran IV PRN #Horizontal diplopia upon upward gaze: Has been assessed by neuro as well as CT of the head without contrast. CT of the head revealed no acute pathology. Neurologic consult suspects some visual changes may be due to the anticholenirgic effects of some of his medications. He also may be experiencing some visual changes due to the withdrawl of some of his commonly abused medications or residual effects from the unknown substance injested. -continue to monitor -consider tapering down on seroquel if patient has improved sleep #normocytic anemia: Likely due to a dilutional effect of IV fluids recieved over the duration of his hospitalization. Iron studies were wnl. -continue to monitor CBC -dc IV fluids #insomnia: Mr. Feliz reports a long standing history of poor sleep for which he takes seroquel. Since recieving seroquel in the hospital he reports increased ability to sleep and a restful sleep last night. -Continue seroquel -Continue Melatonin DVT prophylaxis with enoxaparin Regular diet Full code
[2018-02-11 14:55] VITALS: BP 120/68
[2018-02-11 21:59] VITALS: BP 130/80
[2018-02-12] VITALS (13 sets, daily range): BP systolic 134–160; BP diastolic 78–98
--- NOTE | 2018-02-12 07:00 | PN- Housestaff ---
See Addendum Subjective Follow-up For: Aspiration pneumonia, opioid/benzodiazepine withdrawal Subjective: No overnight events. Patient is feeling little restless and anxious to leave today. He says he is bored here. He has no abdominal pain, nausea, vomiting, chest pain, shortness breath, or other issues. Review of Systems Constitutional: Reports: no symptoms. EENTM: Reports: no symptoms. Cardiovascular: Reports: no symptoms. Respiratory: Reports: no symptoms. Gastrointestinal: Reports: no symptoms. Genitourinary: Reports: no symptoms. Musculoskeletal: Reports: no symptoms. Skin: Reports: no symptoms. Neurological/Psychological: Reports: see HPI. Hematologic/Endocrine: Reports: no symptoms. Immunologic/Allergic: Reports: no symptoms. Objective Last 24 Hrs of Vital Signs/I&O Vital Signs Date Time Temp Pulse Resp B/P B/P Pulse O2 O2 Flow FiO2 Mean Ox Delivery Rate 02/12 0631 98.1 98 20 134/88 97 02/12 0000 Room Air 02/11 2159 99.1 54 20 130/80 96 Room Air 02/11 2111 60 130/80 02/11 1632 97 Room Air Room Air 02/11 1455 98.2 58 20 120/68 99 Room Air 02/11 0840 94 Room Air Intake & Output 02/12 0800 02/12 0000 02/11 1600 Intake Total 240 240 900 Output Total Balance 240 240 900 Intake, IV 300 Intake, Oral 240 240 600 Physical Exam General Appearance: Alert, Oriented X3, Cooperative, No Acute Distress Cardiovascular: Regular Rate, Normal S1, Normal S2 Lungs: Clear to Auscultation Abdomen: Normal Bowel Sounds, Soft, No Tenderness Current Medications: Current Medications Sig/Kye Start time Last Medication Dose Route Stop Time Status Admin Acetaminophen 650 MG Q6P PRN 02/08 1845 AC PO Albuterol Sulfate 3 ML EVERY 4 HRS/AWAKE .. 02/11 1659 AC INH Albuterol Sulfate 3 ML EVERY 4 HRS/AWAKE 02/09 0800 DC 02/11 INH 1630 Amoxicillin/ 875 MG Q12 02/11 1000 AC 02/11 Clavulanate Potassium PO 2111 Ampicillin Sodium/ 3,000 MG Q6H 02/08 2100 DC 02/11 Sulbactam Sodium IV 0247 Sodium Chloride 100 ML Baclofen 10 MG Q6-PRN PRN 02/09 1600 AC 02/09 PO 2106 Clonidine 0.1 MG Q6 PRN 02/08 1815 AC 02/11 PO 2111 Dicyclomine HCl 20 MG 4 TIMES/DAY PRN 02/09 1600 AC 02/10 PO 0950 Enoxaparin Sodium 40 MG DAILY 02/08 1844 AC 02/11 SC 1217 Hydroxyzine HCl 50 MG Q6-PRN PRN 02/09 1600 AC 02/10 PO 0407 Ibuprofen 600 MG Q6P PRN 02/10 0700 AC PO Lorazepam 0.5 MG Q8 02/12 1400 UNVr PO 02/18 1359 Lorazepam 1 MG Q2 PRN 02/12 0700 UNVr PO Lorazepam 1 MG Q8 02/11 1400 DC 02/12 PO 0459 Lorazepam 1 MG Q6 02/09 1200 DC 02/11 PO 0510 Lorazepam 2 MG Q2P PRN 02/08 1800 DC 02/09 IV 2253 Lorazepam 1 MG Q2P PRN 02/08 1800 DC 02/10 IV 1253 Melatonin 5 MG AT BEDTIME 02/09 2200 AC 02/11 PO 2111 Multivitamins 1 TAB DAILY 02/09 1549 AC 02/11 PO 1217 Omeprazole 20 MG DAILY AC 02/11 0815 AC 02/12 PO 0459 Ondansetron HCl 4 MG Q6P PRN 02/10 1015 AC 02/10 IV 1048 Quetiapine Fumarate 50 MG AT BEDTIME NEED.. 02/10 0657 AC 02/12 PO 0127 Sodium Chloride 1,000 ML Q13H 02/08 2000 DC 02/10 IV 2233 Assessment/Plan Assessment: Mr. 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 Problem list: 1. Aspiration pneumonia 2. Polysubstance abuse 3. Anxiety 4. Normocytic anemia 5. Acute hypoxic respiratory failure 6. Acute horizontal diplopia #Aspiration pneumonia: Patient was very somnolent on admission, crackles on exam , and chest x-ray findings consistent with possible aspiration pneumonia. He also had leukocytosis and tachycardia and hypoxia. His breathing is improving, now off oxygen. -Amx/clauv, day 5. -TRC nebs -Oxygen therapy #Polysubstance abuse: Patient has history of polysubstance abuse and will likely need rehabilitation after medically stabilized. His withdrawal symptoms seem to be improving. His CIWA score was 02, he received 4 mg of lorazepam yesterday. If he continues to improve, he can likely be discharged tomorrow. -Lorazepam 0.5 mg every 8 hours, tapering -CISC protocol -Clonidine as necessary -Hydroxyzine 50 mg every 6 when necessary anxiety, dicyclomine 20 mg 4 times a day when necessary GI upset, baclofen 10 mg every 6 when necessary muscle cramps -Ibuprofen 600 mg every 6 hours for pain -Quetiapine 50 mg at bedtime when necessary insomnia -Appreciate psychiatry recommendations -Social work consult #Acute horizontal diplopia: Patient was complaining of horizontal diplopia that was worse with upgaze. On exam, his right eye deviated inward on upgaze. He says he is still having some diplopia but it is improving. Head CT yesterday was negative and neurology evaluated as well. This has since gotten better. -Outpatient ophthalmology referral if it persists #Normocytic anemia: Iron studies are normal. -Continue to monitor DVT prophylaxis with enoxaparin Regular diet Full code Problem List: 1. Aspiration pneumonia Pain Ratin Pain Location: no Pain Goal: Remain pain free Pain Plan: see a/p Tomorrow's Labs & Rationales: no
--- NOTE | 2018-02-12 08:40 | PN- Student ---
Subjective Subjective: No overnight events reported. Patient is on CIWA protocol as well as being monitored for a possible aspiration pneumonia which is resolving. He has had increased ease of breathing and reports no shortness of breath or chest tightness. This morning Mr. Feliz reiterated that he would like to be discharged so that he could "get things done", when asked about this he states he needed to get things set up with work. He and his mother are looking in to [facility] rehabilitation centers and he would like to enroll into a 60 day program at least. He reports that he no longer has diplopia upon upward gaze. His only concern today is being discharged. Patient denies any chest pain, trouble breathing, chest tightness, visual changes, dplopia, abdominal pain, n/v, urinary changes or changes in bowel habbits. Objective Objective: Current Medications Sig/Kye Start time Last Medication Dose Route Stop Time Status Admin Acetaminophen 650 MG Q6P PRN 02/08 1845 AC PO Albuterol Sulfate 3 ML EVERY 4 HRS/AWAKE .. 02/11 1659 AC INH Albuterol Sulfate 3 ML EVERY 4 HRS/AWAKE 02/09 0800 DC 02/11 INH 1630 Amoxicillin/ 875 MG Q12 02/11 1000 AC 02/12 Clavulanate Potassium PO 0816 Ampicillin Sodium/ 3,000 MG Q6H 02/08 2100 DC 02/11 Sulbactam Sodium IV 0247 Sodium Chloride 100 ML Baclofen 10 MG Q6-PRN PRN 02/09 1600 AC 02/09 PO 2106 Clonidine 0.1 MG Q6 PRN 02/08 1815 AC 02/11 PO 2111 Dicyclomine HCl 20 MG 4 TIMES/DAY PRN 02/09 1600 AC 02/10 PO 0950 Enoxaparin Sodium 40 MG DAILY 02/08 1844 AC 02/12 SC 0816 Hydroxyzine HCl 50 MG Q6-PRN PRN 02/09 1600 AC 02/10 PO 0407 Ibuprofen 600 MG Q6P PRN 02/10 0700 AC PO Lorazepam 0.5 MG Q8 02/12 1400 AC PO 02/18 1359 Lorazepam 1 MG Q2P PRN 02/12 0700 AC PO Lorazepam 1 MG Q8 02/11 1400 DC 02/12 PO 0459 Lorazepam 1 MG Q6 02/09 1200 DC 02/11 PO 0510 Lorazepam 2 MG Q2P PRN 02/08 1800 DC 02/09 IV 2253 Lorazepam 1 MG Q2P PRN 02/08 1800 DC 02/10 IV 1253 Melatonin 5 MG AT BEDTIME 02/09 2200 AC 02/11 PO 211 Multivitamins 1 TAB DAILY 02/09 1549 AC 02/12 PO 0816 Omeprazole 20 MG DAILY AC 02/11 0815 AC 02/12 PO 0459 Ondansetron HCl 4 MG Q6P PRN 02/10 1015 AC 02/10 IV 1048 Quetiapine Fumarate 50 MG AT BEDTIME NEED.. 02/10 0657 AC 02/12 PO 0127 Sodium Chloride 1,000 ML Q13H 02/08 2000 DC 02/10 IV 2233 Vital Signs Date Time Temp Pulse Resp B/P B/P Pulse O2 O2 Flow FiO2 Mean Ox Delivery Rate 02/12 0631 98.1 98 20 134/88 97 02/12 0000 Room Air 02/11 2159 99.1 54 20 130/80 96 Room Air 02/11 2111 60 130/80 02/11 1632 97 Room Air Room Air 02/11 1455 98.2 58 20 120/68 99 Room Air 02/11 0840 94 Room Air Intake & Output 02/12 1600 02/12 0800 02/12 0000 Intake Total 240 240 Output Total Balance 240 240 Intake, Oral 240 240 PE: General apperance: no acute distress, resting comfortably in bed, AOx3, cooperative CV: regular rate and rhytym, normal S1&S2, no M/R/G pulm: clear to auscultation in posterior lung skelton abd: normal bowel sounds, tympanic upon percussion, soft & non-tender neuro: slight esotropia of right eye upon upward gaze, denies diplopia Assessment/Plan Assessment: Mr. Feliz is a 32 year old male with a past medical history significant for asthma, polysubstance abuse and cyclical vomiting syndrome presented to the ED on 02/08/18 with difficulty breathing and seeking rehabilitation from multiple substances. Subsequently he was admitted to medicine for his acute drug detox and suspected aspiration pneumonia. Mr. Rodas tested positive for benzodiazapine, narcotics, and cannabis on urine toxicology screening. He has been up front and admitted to using these substances prior to coming in to the hospital as well as an unknown crushed up substance by nasal inhalation given to him by his drug dealer. Prior to this Mr. Feliz was at [facility] 3 years ago and successfully rehabilitated with this most recent relapse occuring 1.5 months ago. Over the course of his stay Mr. Feliz has reported some epigastric discomfort and horizontal diplopia upon upward gaze. However today he reports that these symptoms have resolved and would like to go home as soon as possible. Plan: Problem list: 1. Aspiration Pneumonia 2. Polysubstance detox 3. Abdominal Pain 4. Nausea/Vomiting 5. Horizontal diplopia upon upward gaze 6. Insomnia #Aspiration pneumonia:Since he has been admitted his breathing has improved with abx treatment and supplemental oxygen. He has been off supplemental oxygen and breathing well. Lungs clear on auscultation bilaterally. -continue/complete course of Augmentin therapy oral medication -Albuterol PRN for his ongoing Asthma -resolved pneumonia will consider discharge for tomorrow #polysubstance abuse: He has been monitored and evaluated under [facility] protocol for the duration of his hospitalization. Since yesterday his scores have ranged from 0-2, with his most recent score being 0. He is planning to go to one of three rehab facilities and is working with his mom to get placed into a facility with at least a 60 day program in mind. -taper lorazapam -will consider discharge tomorrow to rehab facility #abdominal pain: Patient no longer is expereincing any abdominal discomfort. -continue omeprazole -continue normal diet #n/v: improved with zofran -continue zofran #horizontal diplopia upon upward gaze: improved, most likely due to drug induced state. -continue to monitor #insomnia: has improved with the addition of seroquel and melatonin. -continue seroquel and melatonin DVT prophylaxis with enoxaparin Regular diet Full code
[2018-02-12] MEDS ORDERED: MELATONIN5 M7 PO (11:04)
[2018-02-12] MEDS ORDERED: OMEPRAZOLE20 M2 PO (11:04)
[2018-02-12] MEDS ORDERED: ONE DAILY MULT1 EAC2 PO (11:04)
[2018-02-12] MEDS ORDERED: LISINOPRIL10 M1 PO (11:04)
--- NOTE | 2018-02-12 11:08 | Patient Discharge Instructions ---
Discharge Instructions General Discharge Information You were seen/treated for: Marijuana/benzodiazepine/opioid abuse, aspiration pneumonia Watch for these problems: Fever, chest pain, shortness of breath Special Instructions: Please take all medications as directed. Please abstain from all recreational drugs, including benzodiazepines and opioids and marijuana. Please follow-up with primary care and with rehabilitation. Please note that you are signing out AGAINST MEDICAL ADVICE. The risks of doing so, including withdrawal seizures, , and progressive decline in his health secondary to his addictions were fully explained and a form attesting to this was signed. Diet Continue normal diet: Yes Activity Full Activity/No Limits: Yes Acute Coronary Syndrome Inclusion Criteria At DC or during hospital stay patient has or had the following: ACS DIAGNOSIS No Discharge Core Measures Meds if any: Prescribed or Continued at Discharge Meds if any: NOT Prescribed or Continued at Discharge Congestive Heart Failure Inclusion Criteria At DC or during hospital stay patient has or had the following: CHF DIAGNOSIS No Discharge Core Measures Meds if any: Prescribed or Continued at Discharge Meds if any: NOT Prescribed or Continued at Discharge Cerebrovascular accident Inclusion Criteria At DC or during hospital stay patient has or had the following: CVA/TIA Diagnosis No Discharge Core Measures Meds if any: Prescribed or Continued at Discharge Meds if any: NOT Prescribed or Continued at Discharge Venous thromboembolism Inclusion Criteria VTE Diagnosis No VTE Type NONE VTE Confirmed by (Test) NONE Discharge Core Measures - Per Current guidelines, there needs to be overlap - treatment for the first 5 days of Warfarin therapy. - If discharged on Warfarin prior to 5 days of - overlap therapy, the patient will need to be - assessed for post discharge needs including - *Post discharge parental anticoagulation - *Warfarin and/or parental anticoagulation education - *Follow up date to check INR post discharge At least 5 days overlap therapy as Inpatient No Meds if any: Prescribed or Continued at Discharge Note: Overlap Therapy is Warfarin and Anticoagulant Meds if any: NOT Prescribed or Continued at Discharge
--- NOTE | 2018-02-12 13:23 | Cons- CRCU ---
See Addendum Michael Cramer 02/12/18 1322: General Information and HPI Consulting Request Date of Consult: 02/12/18 Requested By: Dr. Del Real Reason for Consult: Seizures Source of Information: patient, old records Exam Limitations: clinical condition, intoxication History of Present Illness: Mr. Feliz is a 32-year-old gentleman who was transferred to intensive care unit for the management of seizures and changes in mentation. He was admitted on 02/08/2018 after he was found to be up to obtunded at the rehabilitation center and was sent to [facility] for further management. He has a past medical history of asthma, cyclical vomiting syndrome secondary to marijuana use , polysubstance abuse. He was recently treated for pneumonia with a course of antibiotics and prednisone per week ago. History is unclear, if the patient had any seizures in the past. He did not have any fever, chills, shortness of breath, nausea or vomiting. Reported use of opiates and benzodiazepines. He was admitted to general medicine service for management of possible aspiration pneumonitis, and polysubstance abuse and was treated with Unasyn and subsequently with Augmentin and Ativan taper as per CIWA protocol. CIWA ranged between 0-10, and the higest score of 16 recorded on 02/10/18. While he was on the floor, he developed diplopia and was evaluated by a neurologist who advised to discontinue medications that have anticholinergic actions. CT scan head without contrast was obtained, which was unremarkable and showed no evidence of any lesions. It was initially planned to be discharged on 02/12/2018, but the hospital course was complicated by an episode of seizures, and he received Ativan while he was on the general medicine floor. He was increasingly agitated after he had an episode of seizures. He was transferred to intensive care unit, since he required an Ativan drip to be initiated. No history of intravenous drug use as per the H&P, occasional use of alcohol. Urine toxicology was positive for opiates, benzodiazepines and cannabis. Allergies/Medications Allergies: Coded Allergies: No Known Allergies (02/08/18) Home Med List: Lisinopril 10 MG TABLET 10 MG PO DAILY Blood pressure Melatonin 5 MG TABLET 5 MG PO AT BEDTIME PRN Insomnia Multivitamin (One Daily Multivitamin) 1 EACH TABLET 1 TAB PO DAILY Vitamin Omeprazole 20 MG CAPSULE.DR 20 MG PO DAILY AC GERD Quetiapine Fumarate 50 MG TABLET 1 TAB PO QPM MENTAL HEALTH (Reported) Current Medications: Current Medications Sig/Kye Start time Last Medication Dose Route Stop Time Status Admin Acetaminophen 650 MG Q6P PRN 02/08 1845 AC PO Albuterol Sulfate 3 ML Q4P PRN 02/12 1330 AC INH Albuterol Sulfate 3 ML EVERY 4 HRS/AWAKE .. 02/11 1659 DC INH Amoxicillin/ 875 MG Q12 02/11 1000 DC 02/12 Clavulanate Potassium PO 0816 Ampicillin Sodium/ 1,500 MG Q6 02/12 1800 AC 02/12 Sulbactam Sodium IV 1752 Sodium Chloride 100 ML Baclofen 10 MG Q6-PRN PRN 02/09 1600 AC 02/09 PO 2106 Clonidine 0.1 MG Q6 PRN 02/08 1815 AC 02/11 PO 2111 Dicyclomine HCl 20 MG 4 TIMES/DAY PRN 02/09 1600 AC 02/10 PO 0950 Enoxaparin Sodium 40 MG DAILY 02/08 1844 AC 02/12 SC 0816 Hydroxyzine HCl 50 MG Q6-PRN PRN 02/09 1600 AC 02/10 PO 0407 Ibuprofen 600 MG Q6P PRN 02/10 0700 AC PO Lisinopril 10 MG DAILY 02/12 1017 AC PO Lorazepam 0.5 MG Q8 02/12 1400 CAN PO 02/18 1359 Lorazepam 50 MG Q6H 02/12 1400 AC 02/12 Dextrose/Water 500 ML IV 1419 Lorazepam 0 Q1P PRN 02/12 1345 AC 02/12 IV 1335 Lorazepam 2 MG ONE ONE 02/12 1315 DC IV 02/12 1316 Lorazepam 2 MG ONE ONE 02/12 1315 DC IV 02/12 1316 Lorazepam 2 MG ONE ONE 02/12 1315 DC IV 02/12 1316 Lorazepam 2 MG ONE ONE 02/12 1315 DC IV 02/12 1316 Lorazepam 50 MG Q24H 02/12 1315 DC Dextrose/Water 500 ML IV Lorazepam 1 MG Q2P PRN 02/12 0700 DC PO Lorazepam 1 MG Q8 02/11 1400 DC 02/12 PO 0459 Lorazepam 2 MG Q2P PRN 02/08 1800 DC 02/09 IV 2253 Lorazepam 1 MG Q2P PRN 02/08 1800 DC 02/10 IV 1253 Melatonin 5 MG AT BEDTIME 02/09 2200 02/11 PO 2111 Multivitamins 1 TAB DAILY 02/09 1549 02/12 PO 0816 Omeprazole 20 MG DAILY AC 02/11 0815 02/12 PO 0459 Ondansetron HCl 4 MG Q6P PRN 02/10 1015 AC 02/10 IV 1048 Patient Medication 1 ED ONE ONE 02/12 1130 DC Teaching ED 02/12 1131 Phosphate 250 MG ONCE ONE 02/12 1845 AC PO 02/12 1846 Quetiapine Fumarate 50 MG AT BEDTIME NEED.. 02/10 0657 02/12 PO 0127 Review of Systems Review of Systems Constitutional: Reports: see HPI. EENTM: Denies: blurred vision. Cardiovascular: Denies: chest pain, orthopena. Respiratory: Denies: short of breath. GI: Denies: abdominal pain. Genitourinary: Denies: pain. Musculoskeletal: Denies: back pain, joint pain. Skin: Denies: change in skin color. Neurological/Psychological: Reports: tonic-clonic seizures. Denies: tingling, tremors, unable to move lower ext, unable to move upper ext. Past History Travel History Traveled to [place] past 21 day No Medical History Blood Transfusion Hx: No Neurological: NONE EENT: NONE Cardiovascular: NONE Respiratory: asthma Gastrointestinal: GASTROPARESIS CYCLIC VOMITING SYMDROME Hepatic: NONE Renal: NONE Psychiatric: anxiety, substance abuse Endocrine: NONE Blood Disorders: NONE Cancer(s): NONE TRANSFER PUMPER/Reproductive: NONE Surgical History Surgical History: ACL R KNEE TONSILLECTOMY ADENOIDECTOMY Psychosocial History Where Do You Live? Home Smoking Status: Never Smoked ETOH Use: occasional use Illicit Drug Use: PERCOCET Exam & Diagnostic Data Last 24 Hrs of Vital Signs/I&O Vital Signs Date Time Temp Pulse Resp B/P B/P Pulse O2 O2 Flow FiO2 Mean Ox Delivery Rate 02/12 0855 98 Room Air Room Air 02/12 0631 98.1 98 20 134/88 97 02/12 0000 Room Air 02/11 2159 99.1 54 20 130/80 96 Room Air 02/11 2111 60 130/80 02/11 1632 97 Room Air Room Air 02/11 1455 98.2 58 20 120/68 99 Room Air Intake & Output 02/12 1600 02/12 0800 02/12 0000 Intake Total 240 240 Output Total Balance 240 240 Intake, Oral 240 240 Physical Exam General Appearance: no apparent distress, awake, sedated Head: atraumatic Eyes: Bilateral: PERRL, EOMI. Ears, Nose, Throat: normal pharynx Neck: normal inspection, supple Respiratory: quiet respiration, rhonchi Cardiovascular: regular rate/rhythm Peripheral Pulses: 4+ carotid (R), 4+ carotid (L), 4+ radial (R), 4+ radial (L), 4+ femoral (R), 4+ femoral (L) Gastrointestinal: normal bowel sounds, soft, non-tender Extremities: normal inspection, no edema Neurologic/Psych: no motor/sensory deficits, awake, oriented x 3 Cranial Nerves: normal hearing, normal speech, PERRL Reflexes: 3+: knee (R), knee (L). Skin: intact, normal color Last 48 Hrs of Labs/Nabil: Laboratory Tests 02/12/18 1308: Urine Opiates Screen 993.00, Methadone Screen < 40, Barbiturate Screen < 60, Ur Phencyclidine Scrn < 6.00, Amphetamines Screen < 100, U Benzodiazepines Scrn < 85, Urine Cocaine Screen < 50, Urine Cannabis Screen > 80.00 H Diagnostic Data CXR Results 02/08/2018 Mild nonspecific hazy airspace opacity in the right mid and lower lung zones. Consider dedicated PA and lateral radiographs for dedicated evaluation. No dense consolidation in the chest. 02/08/18 Generalized prominence of the bronchovascular markings with some areas of peribronchial cuffing centrally without confluent consolidation or collapse. Findings may represent small airways disease. Assessment/Plan CRCU Impression/Plan: Mr Feliz is a 32-year-old gentleman with a past medical history of ? 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 At the time of presentation vitals-temperature 98.1, pulse rate 98, respiration 20, blood pressure 134/88, 98% on room air. Pertinent lab findings: WBC 9.6 ( 84.4% granulocytosis )--> 11.6 (02/12) Hemoglobin 12.4--> 14.2(02/12) Sodium 139--> 137(02/12) potassium 3.9--> 3.8(02/12) BUN 12--> 15(02/12) Creatinine 0.5--> 0.7(02/12) Urine toxicology 02/08/2018 urine opiates, benzodiazepines and cannabis positive Urine toxicology 02/12/2018 urine opiates, cannabis positive. Chest x-ray did not reveal any acute pulmonary process. Etiology in her case is likely due to drug withdrawal, since the patient has been taking higher dose of opiates/benzodiazepines for the last few weeks, which he has been taking more than prescribed; and sometimes off the street. Having taken higher dose in the past, and a qucik taper of benzos would have precipitated the withdrawl symptoms - seizure being the most extreme manifestation. Although, theoretically there is a role of flumazenil, but unsure if there is any role in these situations. Regardless, the treatment is ativan w/ a hope to taper it slowly, although there is no clear taper protocol for benzos. In regards to his pneumonitis secondary to snorting Percocet was being treated so far w/ augmentin that should be continued to complete the course. Problem list: 1. Polysubstance abuse 2. Seizures 3. Depression 4. Aspiration pneumonitis Below is the plan: 1. Respiratory- -Check CXR to make sure that there is no pneumonia. -Supplemental oxygen as needed. 2. Infectious- -Check WBC, monitor for leucocytosis -Change the po abx to iv abx. 3. Circulatory- -Monitor BP. 4. Hematology- -Stable 5. Metabolic- -Check BEP, Sr Cr, Mg, Phos -Replenish accordingly. 6. Alimentary- -NPO for now. -Would give po meds, if he is more awake. 8. Neurology- -Start Ativan drip x 6 mg/hr, titrate down to keep the SAS 3-4. Hold for respiratory depression. -Taper in the next 24 hrs, and continue ativan as per CIDE. -Restart the taper protocol in the am, if it allows. -Neurology consult -Consider EEG, after conferring w/ the neurology. -Hold Seroquel, and trazodone for now. Housekeeping- 1. DVT PPx- Heparin sc 2. Full code. 3. NPO. ICU check list: #1 Central line- none #2 Arterial line- none #3 Connelly catheter - none #4 Rectal tube - none. #5 NG tube- none. #6 IV/peripheral line- none. #7 IV drips- Ativan drip #8 Vent settings- none. #9 pressors - none. On 4 point hard restraints currently since he is agitated. Would re-evalute the need. Final recs after discussing with the attending. Consult Acknowledgment - Thank you for your consult request. Jerry Webb MD 02/13/18 1109: Assessment/Plan CRCU Other Findings/Comments: Jerry Wilkins M.D. have examined this patient, reviewed available EMR data, personally reviewed images, discussed with resident/PA/RN PLASTIC SURGERY, discussed management plan with housestaff and nursing staff, discussed managment plan all of healthcare providers, discussed management plan with patient and/or family, agreed with resident/PA/RN PLASTIC SURGERY. The past history and parts of the chart have been autopopulated. Impression 32 year old man * substance dependene * hx of asthma - snorted percocet per patient while in hospital * dependence on opiates, benzos, cannabis Plan -ciwa protocol -ativan gtt -crisis consultation -cxr -monitor respiratory status -1:1 sitter -monitor electrolytes DVT prophylaxis at all times Consult Acknowledgment - Thank you for your consult request.
--- NOTE | 2018-02-12 13:31 | Event Note ---
Event Note Event Note: S: A rapid response was called for seizure-like activity. Upon arrival, patient was in a tonic-clonic seizure. B: Mr. Feliz is a 32-year-old male past medical history of asthma and cyclical vomiting syndrome who presented with aspiration pneumonia and withdrawal from benzodiazepines and opioids. He has previously been doing well and his lorazepam was being tapered before his rapid response today. A/R: Patient was noted to be seizing and required 8 mg of lorazepam IV as well as 4 point restraints for his own protection. On exam, his pupils were very dilated but responsive to light. Upon searching the room and his belongings, we found a bag that contained pills of Zantac and oxycodone. It seems like the patient has been self-medicating likely with oxycodone and lorazepam. His CIWA has not been high recently probably because he was self-medicating his own withdrawal. However, today he was very anxious to leave and I believe that this is because he ran out of lorazepam. I believe that the seizure was caused by an acute withdrawal syndrome. We are transferring the patient now to the ICU for lorazepam drip and further care of his medical conditions. Regarding his other medical care, today is his last day (day 5) of amoxicillin treatment for his aspiration pneumonia. Psychiatry was previously consulted for his withdrawal. He is full code. His mom Vilma is involved in his care and her phone number is [phone]. I will call her now to update her on this transfer.
--- NOTE | 2018-02-12 15:15 | RADIOLOGY REPORT ---
XR PORTABLE CHEST CLINICAL INFORMATION: Acute change of mental status COMPARISON: Chest x-ray 02/08/2018 TECHNIQUE: Portable frontal view of the chest was obtained. FINDINGS: Symmetric lung inflation. There is no focal consolidation, pleural effusion, or pneumothorax. Cardiac silhouette size is normal. There are no acute osseous findings. IMPRESSION: No acute pulmonary process.
[2018-02-12 16:51] LABS: ABSOLUTE BASOPHIL COUNT 0 /CUMM (0.0-0.2); ABSOLUTE EOSINOPHIL COUNT 0.1 /CUMM (0.0-0.7); ABSOLUTE GRANULOCYTE CT 7.8 /CUMM (1.4-6.5); ABSOLUTE LYMPH COUNT 2.5 /CUMM (1.2-3.4); ABSOLUTE MONOCYTE COUNT 1.2 /CUMM (0.10-0.60); BASOPHIL % 0.3 % (0.0-2.0); EOSINOPHIL % 1.1 % (0-5); GRANULOCYTE % 67.2 % (42.2-75.2); MEAN CORPUSCULAR HGB 28.4 PG (27.0-31.0); MEAN CORPUSCULAR HGB CONC 33.5 G/DL (33.0-37.0); MEAN CORPUSCULAR VOLUME 84.7 FL (80.0-94.0); MEAN PLATELET VOLUME 7.8 FL (7.4-10.4); RBC DISTRIBUTION WIDTH 13.8 % (11.5-14.5); RED BLOOD CELL CT 4.99 /CUMM (4.70-6.10); WHITE BLOOD CELL COUNT 11.6 /CUMM (4.8-10.8)
[2018-02-12 16:55] LABS: PT 13.2 SEC (9.4-12.5)
[2018-02-12 16:59] LABS: HEMATOCRIT 42.3 % (42-52); PLATELET COUNT 339 /CUMM (130-400)
[2018-02-13] VITALS: BP 124/80
[2018-02-13 02:00] VITALS: BP 153/91
[2018-02-13 04:00] VITALS: BP 124/80
[2018-02-13 05:54] LABS: ABSOLUTE BASOPHIL COUNT 0 /CUMM (0.0-0.2); ABSOLUTE EOSINOPHIL COUNT 0.2 /CUMM (0.0-0.7); ABSOLUTE LYMPH COUNT 2.8 /CUMM (1.2-3.4); ABSOLUTE MONOCYTE COUNT 1.2 /CUMM (0.10-0.60); BASOPHIL % 0.3 % (0.0-2.0); EOSINOPHIL % 1.9 % (0-5); GRANULOCYTE % 62.5 % (42.2-75.2); MEAN CORPUSCULAR HGB 28.5 PG (27.0-31.0); MEAN CORPUSCULAR HGB CONC 33.4 G/DL (33.0-37.0); MEAN CORPUSCULAR VOLUME 85.3 FL (80.0-94.0); MEAN PLATELET VOLUME 7.8 FL (7.4-10.4); PLATELET COUNT 359 /CUMM (130-400); WHITE BLOOD CELL COUNT 11.2 /CUMM (4.8-10.8)
--- NOTE | 2018-02-13 07:08 | PN- Resident CRCU ---
Michael Cramer 02/13/18 0707: Subjective HPI/CRCU Issues: He feels well with no new complaints. Vitals stable overnight. He was hoping to be discharged, and I explained to him about the risks involved in leaving [facility] thornene his ativan taper as intravenous drug. He was lying in his bed comfortably. No new concerns. 24 Hour Events: He was febrile to 101.3 yesterday evening, but largely afebrile in the last 24 hours. Heart rate in 90s, blood pressure 110/78, 95% on room air. Objective Vital Signs & I&O Last 8 Hrs of Vitals and I&O: - Exam General Appearance: no apparent distress Other Physical Findings: General Appearance: no apparent distress, awake, sedated Head: atraumatic Eyes: Bilateral: PERRL, EOMI. Ears, Nose, Throat: normal pharynx Neck: normal inspection, supple Respiratory: quiet respiration, rhonchi Cardiovascular: regular rate/rhythm Peripheral Pulses: 4+ carotid (R), 4+ carotid (L), 4+ radial (R), 4+ radial (L), 4+ femoral (R), 4+ femoral (L) Gastrointestinal: normal bowel sounds, soft, non-tender Extremities: normal inspection, no edema Neurologic/Psych: no motor/sensory deficits, awake, oriented x 3 Cranial Nerves: normal hearing, normal speech, PERRL Reflexes: 3+: knee (R), knee (L). Skin: intact, normal color Impression/Plan Impression/Problem List Impression: Mr Feliz is a 32-year-old gentleman with a past medical history of ? 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 At the time of presentation vitals-temperature 98.1, pulse rate 98, respiration 20, blood pressure 134/88, 98% on room air. Pertinent lab findings: WBC 9.6 ( 84.4% granulocytosis )--> 11.6 (02/12)--> 11.2 (02/13) Hemoglobin 12.4--> 14.2(02/12)--> 15.4(02/13) Sodium 139--> 137(02/12)--> 141(02/13) potassium 3.9--> 3.8(02/12)--> 3.6(02/13) BUN 12--> 15(02/12) Creatinine 0.5--> 0.7(02/12) Bicarbonate 20, anion gap 18 Urine toxicology 02/08/2018 urine opiates, benzodiazepines and cannabis positive Urine toxicology 02/12/2018 urine opiates, cannabis positive. Chest x-ray did not reveal any acute pulmonary process. Etiology in her case is likely due to drug withdrawal, since the patient has been taking higher dose of opiates/benzodiazepines for the last few weeks, which he has been taking more than prescribed; and sometimes off the street. Having taken higher dose in the past, and a qucik taper of benzos would have precipitated the withdrawl symptoms - seizure being the most extreme manifestation. Although, theoretically there is a role of flumazenil, but unsure if there is any role in these situations. Regardless, the treatment is ativan w/ a hope to taper it slowly, although there is no clear taper protocol for benzos. In regards to his pneumonitis secondary to snorting Percocet was being treated so far w/ augmentin that should be continued to complete the course. Problem list: 1. Polysubstance abuse 2. Seizures 3. Depression 4. Aspiration pneumonitis 5. Anion gap metabolic acidosis Below is the plan: 1. Respiratory- -Check CXR to make sure that there is no pneumonia in the a.m. -Supplemental oxygen as needed. 2. Infectious- -Check WBC, monitor for leucocytosis -Change to po abx. Discontinue antibiotics in the a.m. 3. Circulatory- -Monitor BP. 4. Hematology- -Stable 5. Metabolic- -Check BEP, Sr Cr, Mg, Phos -Replenish accordingly. -For metabolic acidosis, unclear etiology. -Check lactic acid -Usual etiologies ruled out. Has not received enough Ativan trip to cause acidosis. 6. Alimentary- -Advance diet. -Would give po meds, if he is more awake. 8. Neurology- -Continue Ativan drip x 5 mg/hr, titrate down to keep the SAS 3-4. Hold for respiratory depression. -Taper in the next 24 hrs, and continue ativan as per CIWA. -Restart the taper protocol in the am, if it allows. -Neurology consult -Consider EEG, after conferring w/ the neurology. -Hold Seroquel, and trazodone for now. -Use Haldol if needed, QTC 426 Housekeeping- 1. DVT PPx- Heparin sc 2. Full code. 3. NPO. ICU check list: #1 Central line- none #2 Arterial line- none #3 Connelly catheter - none #4 Rectal tube - none. #5 NG tube- none. #6 IV/peripheral line- none. #7 IV drips- Ativan drip #8 Vent settings- none. #9 pressors - none. Problem List: 1. Aspiration pneumonia Pain Ratin Tomorrow's Labs & Rationales: cbc bep Jon DELVALLE,Jerry 02/13/18 1111: Objective Current Medications: Current Medications Sig/Kye Start time Last Medication Dose Route Stop Time Status Admin Acetaminophen 650 MG Q6P PRN 02/08 1845 AC PO Amoxicillin/ 875 MG Q12 02/14 0900 DC 02/15 Clavulanate Potassium PO 2023 Baclofen 10 MG Q8P PRN 02/14 1145 AC PO Chlordiazepoxide HCl 100 MG Q8 02/16 0600 DC 02/16 PO 0502 Chlordiazepoxide HCl 100 MG Q6 02/14 1200 DC 02/15 PO 02/16 0559 2357 Enoxaparin Sodium 40 MG DAILY 02/08 1844 AC 02/12 SC 0816 Guaifenesin 600 MG Q12 02/15 2100 CAN PO Hydroxyzine HCl 50 MG Q6-PRN PRN 02/09 1600 AC 02/15 PO 202 Ibuprofen 600 MG Q6P PRN 02/10 0700 AC PO Lisinopril 10 MG DAILY 02/12 1017 AC 02/16 PO 0902 Lorazepam 2 MG Q6 02/16 1200 AC PO Lorazepam 0 Q1P PRN 02/12 1345 AC 02/16 IV 0506 Melatonin 5 MG AT BEDTIME 02/09 2200 AC 02/15 PO 202 Multivitamins 1 TAB DAILY 02/09 1549 AC 02/16 PO 0902 Omeprazole 20 MG DAILY AC 02/11 0815 AC 02/16 PO 0501 Ondansetron HCl 4 MG Q6P PRN 02/10 1015 AC 02/10 IV 1048 Impression/Plan Plan DVT/Prophylaxis: pharmacological Attending MD Review Statement Attending Sign Off Attending Cosign Statement: I have: examined this patient, reviewed avalbl EMR data, personally reviewd images, discussd w/resident/PA/CUSTOMER MANAGEMENT SPECIALIST, discussed mgmt plan w/leigha, discussed mgmt plan w/CM, discussed mgmt plan w/pt, agreed w/resident/PA/CUSTOMER MANAGEMENT SPECIALIST, amended to note. Other Findings: I, Jerry Webb M.D. have examined this patient, reviewed available EMR data, personally reviewed images, discussed with resident/PA/CUSTOMER MANAGEMENT SPECIALIST, discussed management plan with housestaff and nursing staff, discussed managment plan all of healthcare providers, discussed management plan with patient and/or family, agreed with resident/PA/CUSTOMER MANAGEMENT SPECIALIST. The past history and parts of the chart have been autopopulated. Impression 32 year old man * substance dependene * hx of asthma - snorted percocet per patient while in hospital * dependence on opiates, benzos, cannabis Plan -ciwa protocol -ativan gtt -crisis consultation -cxr is clear -monitor respiratory status -1:1 sitter -monitor electrolytes DVT prophylaxis at all times TTS 35 min CIWA is at around a 10. Was confused with the date earlier. Does not seem to have insight into amount of medications (iv ativan) required and the possible dangers to himself. Additionally his recent seizure activity is worrisome and he is a danger to himself without an obvious insight into the ramifications of being discharged.
[2018-02-13 08:00] VITALS: BP 140/94
[2018-02-13 12:00] VITALS: BP 140/96
--- NOTE | 2018-02-13 15:04 | Cons- Neurology ---
General Information and HPI Consulting Request Date of Consult: 02/13/18 Requested By: Jerry Webb MD Reason for Consult: Seizure Source of Information: patient, old records Exam Limitations: no limitations History of Present Illness: This is a 32-year-old right-handed male who came to the hospital order to be admitted for rehabilitation. He has had previous problems with drugs specifically opiates and benzodiazepines. 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 However recently due to certain adversity and his life he relapsed to start using opiates and benzodiazepines self-medicating himself. When he arrived the hospital he was quite somnolent. He was admitted to the hospital for withdrawal. Yesterday he was noted to have suddenly developed general tonoclonic seizure. A rapid response was called. He has not had a recurrence today was started on an Ativan drip. Henriquez feels fine and denies ever having any neurological deficits causes for his seizure disorder. This is the first seizure he has ever had. Other complaints at the moment the exception of that he really would like to move on to the rehabilitation phase. Allergies/Medications Allergies: Coded Allergies: No Known Allergies (02/08/18) Home Med List: Lisinopril 10 MG TABLET 10 MG PO DAILY Blood pressure Melatonin 5 MG TABLET 5 MG PO AT BEDTIME PRN Insomnia Multivitamin (One Daily Multivitamin) 1 EACH TABLET 1 TAB PO DAILY Vitamin Omeprazole 20 MG CAPSULE.DR 20 MG PO DAILY AC GERD Quetiapine Fumarate 50 MG TABLET 1 TAB PO QPM MENTAL HEALTH (Reported) Current Medications: Current Medications Sig/Kye Start time Last Medication Dose Route Stop Time Status Admin Acetaminophen 650 MG Q6P PRN 02/08 1845 AC PO Albuterol Sulfate 3 ML Q4P PRN 02/12 1330 AC INH Ampicillin Sodium/ 1,500 MG Q6 02/12 1800 AC 02/13 Sulbactam Sodium IV 1222 Sodium Chloride 100 ML Baclofen 10 MG Q6-PRN PRN 02/09 1600 AC 02/09 PO 2106 Clonidine 0.1 MG Q6 PRN 02/08 1815 AC 02/11 PO 2111 Dicyclomine HCl 20 MG 4 TIMES/DAY PRN 02/09 1600 AC 02/10 PO 0950 Enoxaparin Sodium 40 MG DAILY 02/08 1844 AC 02/12 SC 0816 Hydroxyzine HCl 50 MG Q6-PRN PRN 02/09 1600 AC 02/10 PO 0407 Ibuprofen 600 MG Q6P PRN 02/10 0700 AC PO Lisinopril 10 MG DAILY 02/12 1017 AC 02/13 PO 0814 Lorazepam 50 MG Q7H 02/13 1515 DC Dextrose/Water 500 ML IV Lorazepam 100 MG Q14H 02/13 1515 AC Dextrose/Water 1,000 ML IV Lorazepam 50 MG Q6H 02/12 1400 AC 02/13 Dextrose/Water 500 ML IV 02/13 1514 0816 Lorazepam 0 Q1P PRN 02/12 1345 AC 02/12 IV 2100 Melatonin 5 MG AT BEDTIME 02/09 2200 AC 02/11 PO 2111 Multivitamins 1 TAB DAILY 02/09 1549 AC 02/13 PO 0814 Omeprazole 20 MG DAILY AC 02/11 0815 AC 02/13 PO 0641 Ondansetron HCl 4 MG Q6P PRN 02/10 1015 AC 02/10 IV 1048 Phosphate 250 MG ONCE ONE 02/12 1845 DC 02/12 PO 02/12 1846 2218 Quetiapine Fumarate 50 MG AT BEDTIME NEED.. 02/10 0657 DC 02/12 PO 0127 Review of Systems Review of Systems: As per HPI otherwise negative Past History Travel History Traveled to [place] past 21 day No Medical History Blood Transfusion Hx: No Neurological: NONE EENT: NONE Cardiovascular: NONE Respiratory: asthma Gastrointestinal: GASTROPARESIS CYCLIC VOMITING SYMDROME Hepatic: NONE Renal: NONE Psychiatric: anxiety, substance abuse Endocrine: NONE Blood Disorders: NONE Cancer(s): NONE MINERAL ENGINEER/Reproductive: NONE Surgical History Surgical History: ACL R KNEE TONSILLECTOMY ADENOIDECTOMY Psychosocial History Where Do You Live? Home Smoking Status: Never Smoked ETOH Use: occasional use Illicit Drug Use: PERCOCET Exam & Diagnostic Data Vital Signs and I&O Vital Signs Date Time Temp Pulse Resp B/P B/P Pulse O2 O2 Flow FiO2 Mean Ox Delivery Rate 02/13 1200 99.0 90 27 140/96 02/13 1200 96 Room Air 02/13 0814 90 135/83 02/13 0800 99.2 84 20 140/94 02/13 0800 99.4 84 20 140/94 96 Room Air 02/13 0800 96 Room Air 02/13 0400 98.2 95 24 124/80 02/13 0200 64 24 153/91 02/13 0000 99.0 75 24 124/80 02/13 0000 99.0 75 24 124/80 94 Room Air 02/12 2005 96 Room Air Room Air 02/12 1830 98.9 68 18 156/89 02/12 1800 98.9 68 18 156/89 02/12 1730 99.0 68 20 154/80 02/12 1630 101.3 92 24 146/98 02/12 1600 101.3 92 24 146/98 96 Room Air 02/12 1600 94 Room Air 02/12 1530 86 20 144/90 Intake & Output 02/13 1600 02/13 0800 02/13 0000 Intake Total 730 808 728 Output Total 400 850 Balance 730 408 -122 Intake, IV 490 468 528 Intake, Oral 240 340 200 Number 5 1 Bowel Movements Output, Urine 400 850 Patient 172 lb Weight Physical Exam: General: The patient is in no distress. Pleasant and cooperative. MSE: Alert and oriented 3. Good attention and concentration. Good short-term memory and fund of knowledge reflected through our conversation. Language is fluent with good comprehension and repetition. Cardiovascular: S1 and S2 are normal, regular rate and rhythm, and normal pedal pulses. Vision: Fundoscopic exam does not reveal any abnormalties. Visual skelton are intact. Neurological: Extra ocular movements intact, CHRISTOPHER, face is symmetric, tongue midline, uvula raises equally in the midline, V1-V3 sensation to touch is intact and equal bilaterallty, sternocleidomastoid and trapezius are strong on both sides, muscles of mastication are strong. No dysarthria noted. Motor exam reveals no abnormality of strength. Power is 5-5 throughout the distribution distally and proximally. Sensory exam did not reveal any deficits to touch, temperature, vibration and proprioception. Reflexes are symmetric bilaterally. Cerebellar exam does not reveal any dysmetria. Rapid alternating movements are intact bilaterally. Gait is steady with normal base. Last 48 Hours of Lab Results: Laboratory Tests 02/13 02/12 0445 1600 Chemistry Sodium (137 - 145 mmol/L) 141 137 Potassium (3.5 - 5.1 mmol/L) 3.6 3.8 Chloride (98 - 107 mmol/L) 103 102 Carbon Dioxide (22 - 30 mmol/L) 20 L 21 L Anion Gap (5 - 16) 18 H 13 BUN (9 - 20 mg/dL) 15 15 Creatinine (0.7 - 1.2 mg/dL) 0.8 0.7 Estimated GFR (>60 ml/min) > 60 > 60 Glucose (65 - 99 mg/dL) 125 H 103 H Calcium (8.4 - 10.2 mg/dL) 9.3 9.1 Phosphorus (2.5 - 4.5 mg/dL) 4.0 2.3 L Magnesium (1.6 - 2.3 mg/dL) 2.2 1.9 Total Bilirubin (0.2 - 1.3 mg/dL) 0.9 1.0 AST (17 - 59 U/L) 20 24 ALT (21 - 72 U/L) 31 34 Albumin (3.5 - 5.0 g/dL) 4.5 4.4 Coagulation PT (9.4 - 12.5 SEC) 13.2 H INR (0.90 - 1.17) 1.21 H Hematology CBC w Diff NO MAN DIFF REQ NO MAN DIFF REQ WBC (4.8 - 10.8 /CUMM) 11.2 H 11.6 H RBC (4.70 - 6.10 /CUMM) 5.40 4.99 Hgb (14.0 - 18.0 G/DL) 15.4 14.2 Hct (42 - 52 %) 46.0 42.3 MCV (80.0 - 94.0 FL) 85.3 84.7 MCH (27.0 - 31.0 PG) 28.5 28.4 MCHC (33.0 - 37.0 G/DL) 33.4 33.5 RDW (11.5 - 14.5 %) 14.0 13.8 Plt Count (130 - 400 /CUMM) 359 339 MPV (7.4 - 10.4 FL) 7.8 7.8 Gran % (42.2 - 75.2 %) 62.5 67.2 Lymphocytes % (20.5 - 51.1 %) 24.9 21.3 Monocytes % (1.7 - 9.3 %) 10.4 H 10.1 H Eosinophils % (0 - 5 %) 1.9 1.1 Basophils % (0.0 - 2.0 %) 0.3 0.3 Absolute Granulocytes (1.4 - 6.5 /CUMM) 7.0 H 7.8 H Absolute Lymphocytes (1.2 - 3.4 /CUMM) 2.8 2.5 Absolute Monocytes (0.10 - 0.60 /CUMM) 1.2 H 1.2 H Absolute Eosinophils (0.0 - 0.7 /CUMM) 0.2 0.1 Absolute Basophils (0.0 - 0.2 /CUMM) 0 0 02/12 1308 Toxicology Urine Opiates Screen (>2000 NG/ML) 993.00 Methadone Screen (>300 NG/ML) < 40 Barbiturate Screen (>200 NG/ML) < 60 Ur Phencyclidine Scrn (>25 NG/ML) < 6.00 Amphetamines Screen (>1000 NG/ML) < 100 U Benzodiazepines Scrn (>200 NG/ML) < 85 Urine Cocaine Screen (>300 NG/ML) < 50 Urine Cannabis Screen (>50 NG/ML) > 80.00 H Imaging/Other Studies: Normal noncontrast head CT. Assessment/Plan Assessment: 32-year-old man who was self-medicating benzodiazepines and who came in with signs of withdrawal culminating in a seizure. I do not think that there is any concern for seizure disorder however I would recommend at least a screen with a routine EEG. Recommendations: Continue CIWA protocol and Ativan drip. Obtain an EEG. If EEG is normal could be discharged when ready to rehabilitation. Consult Acknowledgment - Thank you for your consult request.
[2018-02-13 16:00] VITALS: BP 110/78
[2018-02-14] VITALS: BP 116/70
[2018-02-14 04:00] VITALS: BP 120/70
[2018-02-14 04:16] LABS: ABSOLUTE BASOPHIL COUNT 0.1 /CUMM (0.0-0.2); ABSOLUTE EOSINOPHIL COUNT 0.4 /CUMM (0.0-0.7); ABSOLUTE GRANULOCYTE CT 6.4 /CUMM (1.4-6.5); ABSOLUTE LYMPH COUNT 3.4 /CUMM (1.2-3.4); ABSOLUTE MONOCYTE COUNT 1.1 /CUMM (0.10-0.60); BASOPHIL % 0.4 % (0.0-2.0); EOSINOPHIL % 3.2 % (0-5); GRANULOCYTE % 56.3 % (42.2-75.2); HEMATOCRIT 46.2 % (42-52); MEAN CORPUSCULAR HGB 28.2 PG (27.0-31.0); MEAN CORPUSCULAR VOLUME 85.3 FL (80.0-94.0); MEAN PLATELET VOLUME 7.7 FL (7.4-10.4); PLATELET COUNT 370 /CUMM (130-400); RBC DISTRIBUTION WIDTH 13.6 % (11.5-14.5); RED BLOOD CELL CT 5.41 /CUMM (4.70-6.10); WHITE BLOOD CELL COUNT 11.3 /CUMM (4.8-10.8)
[2018-02-14 08:10] VITALS: BP 110/80
--- NOTE | 2018-02-14 08:45 | PN- Resident CRCU ---
Subjective HPI/CRCU Issues: 1. Polysubstance abuse 2. Seizures 3. Depression 4. Aspiration pneumonitis 5. Anion gap metabolic acidosis 24 Hour Events: Patient was seen and examined this morning. He is alert awake and oriented 3. No acute events overnight. He is still on Ativan drip, planning to taper. CIWA scores overnight with running in between 0-4. Denies any nausea, vomiting, abdominal pain. Denies any hallucinations, agitation, anxiety, sweating, tremors. Denies any fever, chills, short of breath, chest pain, palpitations. Vitals were within normal limits. Saturating at 94 on room air, blood pressure 110/80, heart rate 80, respiratory rate 32, afebrile. Labs were reviewed this morning CBC and CMP normal limit, leukocytosis improved. Objective Vital Signs & I&O Last 8 Hrs of Vitals and I&O: Vital Signs Date Time Temp Pulse Resp B/P B/P Pulse O2 O2 Flow FiO2 Mean Ox Delivery Rate 02/14 1034 96 Room Air Room Air 02/14 0910 114/72 02/14 0810 98.0 92 32 110/80 94 Room Air 02/14 0400 98.2 82 22 120/70 02/14 0400 95 Room Air 02/14 0000 99.0 84 24 116/70 02/14 0000 95 Room Air 02/14 0000 99.0 84 18 116/70 95 Room Air 02/13 2047 96 Room Air Room Air 02/13 1600 98.1 95 20 110/78 02/13 1600 95 Room Air 02/13 1600 98.1 95 20 110/78 95 Room Air Intake & Output 02/14 1600 02/14 0800 02/14 0000 Intake Total 589 720 Output Total Balance 589 720 Intake, IV 489 480 Intake, Oral 100 240 Exam General Appearance: well developed/nourished, no apparent distress Other Physical Findings: General Appearance: no apparent distress, awake, sedated Head: atraumatic Eyes: Bilateral: PERRL, EOMI. Ears, Nose, Throat: normal pharynx Neck: normal inspection, supple Respiratory: quiet respiration, rhonchi Cardiovascular: regular rate/rhythm Peripheral Pulses: 4+ carotid (R), 4+ carotid (L), 4+ radial (R), 4+ radial (L), 4+ femoral (R), 4+ femoral (L) Gastrointestinal: normal bowel sounds, soft, non-tender Extremities: normal inspection, no edema Neurologic/Psych: no motor/sensory deficits, awake, oriented x 3 Cranial Nerves: normal hearing, normal speech, PERRL Reflexes: 3+: knee (R), knee (L). Skin: intact, normal color Current Medications: Current Medications Sig/Kye Start time Last Medication Dose Route Stop Time Status Admin Acetaminophen 650 MG Q6P PRN 02/08 1845 AC PO Albuterol Sulfate 3 ML Q4P PRN 02/12 1330 AC INH Amoxicillin/ 875 MG Q12 02/14 0900 AC 02/14 Clavulanate Potassium PO 0910 Ampicillin Sodium/ 1,500 MG Q6 02/12 1800 DC 02/13 Sulbactam Sodium IV 02/14 0100 2335 Sodium Chloride 100 ML Baclofen 10 MG Q8P PRN 02/14 1145 AC PO Baclofen 10 MG Q6-PRN PRN 02/09 1600 DC 02/09 PO 2106 Chlordiazepoxide HCl 100 MG Q6 02/14 1200 AC 02/14 PO 1218 Clonidine 0.1 MG Q6 PRN 02/08 1815 DC 02/11 PO 2111 Dicyclomine HCl 20 MG 4 TIMES/DAY PRN 02/09 1600 DC 02/10 PO 0950 Enoxaparin Sodium 40 MG DAILY 02/08 1844 AC 02/12 SC 0816 Hydroxyzine HCl 50 MG Q6-PRN PRN 02/09 1600 AC 02/10 PO 0407 Ibuprofen 600 MG Q6P PRN 02/10 0700 AC PO Lisinopril 10 MG DAILY 02/12 1017 AC 02/14 PO 0910 Lorazepam 50 MG Q7H 02/13 1515 DC Dextrose/Water 500 ML IV Lorazepam 100 MG Q14H 02/13 1515 DC 02/14 Dextrose/Water 1,000 ML IV 0916 Lorazepam 50 MG Q6H 02/12 1400 DC 02/13 Dextrose/Water 500 ML IV 02/13 1514 0816 Lorazepam 0 Q1P PRN 02/12 1345 AC 02/12 IV 2100 Melatonin 5 MG AT BEDTIME 02/09 2200 AC 02/13 PO 2128 Multivitamins 1 TAB DAILY 02/09 1549 AC 02/14 PO 1006 Omeprazole 20 MG DAILY AC 02/11 0815 AC 02/14 PO 0626 Ondansetron HCl 4 MG Q6P PRN 02/10 1015 AC 02/10 IV 1048 Impression/Plan Impression/Problem List Impression: Mr Feliz is a 32-year-old gentleman with a past medical history of ? 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 At the time of presentation vitals-temperature 98.1, pulse rate 98, respiration 20, blood pressure 134/88, 98% on room air. Pertinent lab findings: WBC 9.6 ( 84.4% granulocytosis )--> 11.6 (02/12)--> 11.2 (02/13) Hemoglobin 12.4--> 14.2(02/12)--> 15.4(02/13) Sodium 139--> 137(02/12)--> 141(02/13) potassium 3.9--> 3.8(02/12)--> 3.6(02/13) BUN 12--> 15(02/12) Creatinine 0.5--> 0.7(02/12) Bicarbonate 20, anion gap 18 Urine toxicology 02/08/2018 urine opiates, benzodiazepines and cannabis positive Urine toxicology 02/12/2018 urine opiates, cannabis positive. Chest x-ray did not reveal any acute pulmonary process. 1. Polysubstance abuse 2. Seizures 3. Depression 4. Aspiration pneumonitis 5. Anion gap metabolic acidosis 1. Respiratory -Repeat chest x-ray 02/14 was normal, no consolidation was found -Supplemental oxygen as needed. -IV Unasyn discontinued, started Augmentin to complete 7 day course for aspiration pneumonitis -Acute hypoxic respiratory failure resolved 2. Infectious/aspiration pneumonitis In regards to his pneumonitis secondary to snorting Percocet. Patient remained afebrile with improvement of WBC count 11.3. Repeat chest x-ray was showing no consolidation. -Check WBC, monitor for leucocytosis -Change to po abx. -IV Unasyn discontinued -Day 11/09 oral Augmentin 3. Circulatory-Monitor BP. 4. Hematology -Stable 5. Metabolic- -Checking BEP, Sr Cr, Mg, Phos -Replenish accordingly. 6. Alimentary-reg diet. 8. Neurology- seizures and polysubstance abuse Etiology in his case is likely due to drug withdrawal, since the patient has been taking higher dose of opiates/benzodiazepines for the last few weeks, which he has been taking more than prescribed; and sometimes off the street. Having taken higher dose in the past, and a qucik taper of benzos would have precipitated the withdrawl symptoms - seizure being the most extreme manifestation. Although, theoretically there is a role of flumazenil, but unsure if there is any role in these situations. Regardless, the treatment is ativan w/ a hope to taper it slowly, although there is no clear taper protocol for benzos. -Taper Ativan drip and will d/c today -IV Ativan as needed only for agitation prn -Started Librium 100 mg every 6hrs -Neurology consulted -Follow-up EEG -Hold Seroquel, and trazodone for now. -Use Haldol if needed, QTC 426 -------- Hypertension continue lisinopril 10 daily GERD continue omeprazole daily Acute horizontal diplopia resolved Housekeeping- 1. DVT PPx- lovenox sc 2. Full code. 3. REG DIET ICU check list: #1 Central line- none #2 Arterial line- none #3 Connelly catheter - none #4 Rectal tube - none. #5 NG tube- none. #6 IV/peripheral line- none. #7 IV drips- Ativan drip tapering down #8 Vent settings- none. #9 pressors - none. Problem List: 1. Aspiration pneumonia 2. Hypoxia 3. Bronchitis Pain Ratin Tomorrow's Labs & Rationales: CBC ICU BUNDLE Plan DVT/Prophylaxis: mechanical, pharmacological
--- NOTE | 2018-02-14 08:50 | RADIOLOGY REPORT ---
EXAMINATION: XR PORTABLE CHEST CLINICAL INFORMATION: Acute change in mental status. COMPARISON: Chest radiographs 02/12/2018, 02/08/2018 TECHNIQUE: Portable upright AP view of the chest was obtained. FINDINGS: The lungs are clear. The vascularity is normal. There is no airspace consolidation, vascular congestion, or effusion. The heart is normal in size. The hilar and mediastinal contours and bony structures are unremarkable. IMPRESSION: Lungs clear.
--- NOTE | 2018-02-14 10:33 | PN- CRCU ---
Subjective HPI/Critical Care Issues: DOing better On high dose ativan Stable NO further seizure Objective Current Medications: Current Medications Sig/Kye Start time Last Medication Dose Route Stop Time Status Admin Acetaminophen 650 MG Q6P PRN 02/08 1845 AC PO Albuterol Sulfate 3 ML Q4P PRN 02/12 1330 AC INH Amoxicillin/ 875 MG Q12 02/14 0900 AC 02/14 Clavulanate Potassium PO 0910 Ampicillin Sodium/ 1,500 MG Q6 02/12 1800 DC 02/13 Sulbactam Sodium IV 02/14 0100 2335 Sodium Chloride 100 ML Baclofen 10 MG Q6-PRN PRN 02/09 1600 AC 02/09 PO 2106 Clonidine 0.1 MG Q6 PRN 02/08 1815 AC 02/11 PO 2111 Dicyclomine HCl 20 MG 4 TIMES/DAY PRN 02/09 1600 AC 02/10 PO 0950 Enoxaparin Sodium 40 MG DAILY 02/08 1844 AC 02/12 SC 0816 Hydroxyzine HCl 50 MG Q6-PRN PRN 02/09 1600 AC 02/10 PO 0407 Ibuprofen 600 MG Q6P PRN 02/10 0700 AC PO Lisinopril 10 MG DAILY 02/12 1017 AC 02/14 PO 0910 Lorazepam 50 MG Q7H 02/13 1515 DC Dextrose/Water 500 ML IV Lorazepam 100 MG Q14H 02/13 1515 AC 02/14 Dextrose/Water 1,000 ML IV 0916 Lorazepam 50 MG Q6H 02/12 1400 DC 02/13 Dextrose/Water 500 ML IV 02/13 1514 0816 Lorazepam 0 Q1P PRN 02/12 1345 AC 02/12 IV 2100 Melatonin 5 MG AT BEDTIME 02/09 2200 AC 02/13 PO 2128 Multivitamins 1 TAB DAILY 02/09 1549 AC 02/14 PO 1006 Omeprazole 20 MG DAILY AC 02/11 0815 AC 02/14 PO 0626 Ondansetron HCl 4 MG Q6P PRN 02/10 1015 AC 02/10 IV 1048 Vital Signs & I&O Last 24 Hrs of Vitals and I&O: Vital Signs Date Time Temp Pulse Resp B/P B/P Pulse O2 O2 Flow FiO2 Mean Ox Delivery Rate 02/14 0910 114/72 02/14 08 98.0 92 32 110/80 94 Room Air 02/14 0400 98.2 82 22 120/70 02/14 0400 95 Room Air 02/14 0000 99.0 84 24 116/70 02/14 0000 95 Room Air 02/14 0000 99.0 84 18 116/70 95 Room Air 02/13 2047 96 Room Air Room Air 02/13 1600 98.1 95 20 110/78 02/13 1600 95 Room Air 02/13 1600 98.1 95 20 110/78 95 Room Air 02/13 1200 99.0 90 27 140/96 02/13 1200 96 Room Air Intake & Output 02/14 1600 02/14 0800 02/14 0000 Intake Total 589 720 Output Total Balance 589 720 Intake, IV 489 480 Intake, Oral 100 240 Laboratory Tests 02/14 02/14 0350 0350 Chemistry Sodium (137 - 145 mmol/L) 141 Potassium (3.5 - 5.1 mmol/L) 4.1 Chloride (98 - 107 mmol/L) 105 Carbon Dioxide (22 - 30 mmol/L) 20 L Anion Gap (5 - 16) 16 BUN (9 - 20 mg/dL) 14 Creatinine (0.7 - 1.2 mg/dL) 0.7 Estimated GFR (>60 ml/min) > 60 Glucose (65 - 99 mg/dL) 107 H Lactic Acid (0.7 - 2.1 mmol/L) 1.1 Calcium (8.4 - 10.2 mg/dL) 8.9 Phosphorus (2.5 - 4.5 mg/dL) 5.2 H Magnesium (1.6 - 2.3 mg/dL) 2.2 Total Bilirubin (0.2 - 1.3 mg/dL) 0.7 AST (17 - 59 U/L) 48 ALT (21 - 72 U/L) 44 Albumin (3.5 - 5.0 g/dL) 4.2 Hematology CBC w Diff NO MAN DIFF REQ WBC (4.8 - 10.8 /CUMM) 11.3 H RBC (4.70 - 6.10 /CUMM) 5.41 Hgb (14.0 - 18.0 G/DL) 15.2 Hct (42 - 52 %) 46.2 MCV (80.0 - 94.0 FL) 85.3 MCH (27.0 - 31.0 PG) 28.2 MCHC (33.0 - 37.0 G/DL) 33.0 RDW (11.5 - 14.5 %) 13.6 Plt Count (130 - 400 /CUMM) 370 MPV (7.4 - 10.4 FL) 7.7 Gran % (42.2 - 75.2 %) 56.3 Lymphocytes % (20.5 - 51.1 %) 30.4 Monocytes % (1.7 - 9.3 %) 9.7 H Eosinophils % (0 - 5 %) 3.2 Basophils % (0.0 - 2.0 %) 0.4 Absolute Granulocytes (1.4 - 6.5 /CUMM) 6.4 Absolute Lymphocytes (1.2 - 3.4 /CUMM) 3.4 Absolute Monocytes (0.10 - 0.60 /CUMM) 1.1 H Absolute Eosinophils (0.0 - 0.7 /CUMM) 0.4 Absolute Basophils (0.0 - 0.2 /CUMM) 0.1 02/13 02/12 0445 1600 Chemistry Sodium (137 - 145 mmol/L) 141 137 Potassium (3.5 - 5.1 mmol/L) 3.6 3.8 Chloride (98 - 107 mmol/L) 103 102 Carbon Dioxide (22 - 30 mmol/L) 20 L 21 L Anion Gap (5 - 16) 18 H 13 BUN (9 - 20 mg/dL) 15 15 Creatinine (0.7 - 1.2 mg/dL) 0.8 0.7 Estimated GFR (>60 ml/min) > 60 > 60 Glucose (65 - 99 mg/dL) 125 H 103 H Calcium (8.4 - 10.2 mg/dL) 9.3 9.1 Phosphorus (2.5 - 4.5 mg/dL) 4.0 2.3 L Magnesium (1.6 - 2.3 mg/dL) 2.2 1.9 Total Bilirubin (0.2 - 1.3 mg/dL) 0.9 1.0 AST (17 - 59 U/L) 20 24 ALT (21 - 72 U/L) 31 34 Albumin (3.5 - 5.0 g/dL) 4.5 4.4 Coagulation PT (9.4 - 12.5 SEC) 13.2 H INR (0.90 - 1.17) 1.21 H Hematology CBC w Diff NO MAN DIFF REQ NO MAN DIFF REQ WBC (4.8 - 10.8 /CUMM) 11.2 H 11.6 H RBC (4.70 - 6.10 /CUMM) 5.40 4.99 Hgb (14.0 - 18.0 G/DL) 15.4 14.2 Hct (42 - 52 %) 46.0 42.3 MCV (80.0 - 94.0 FL) 85.3 84.7 MCH (27.0 - 31.0 PG) 28.5 28.4 MCHC (33.0 - 37.0 G/DL) 33.4 33.5 RDW (11.5 - 14.5 %) 14.0 13.8 Plt Count (130 - 400 /CUMM) 359 339 MPV (7.4 - 10.4 FL) 7.8 7.8 Gran % (42.2 - 75.2 %) 62.5 67.2 Lymphocytes % (20.5 - 51.1 %) 24.9 21.3 Monocytes % (1.7 - 9.3 %) 10.4 H 10.1 H Eosinophils % (0 - 5 %) 1.9 1.1 Basophils % (0.0 - 2.0 %) 0.3 0.3 Absolute Granulocytes (1.4 - 6.5 /CUMM) 7.0 H 7.8 H Absolute Lymphocytes (1.2 - 3.4 /CUMM) 2.8 2.5 Absolute Monocytes (0.10 - 0.60 /CUMM) 1.2 H 1.2 H Absolute Eosinophils (0.0 - 0.7 /CUMM) 0.2 0.1 Absolute Basophils (0.0 - 0.2 /CUMM) 0 0 02/12 1308 Toxicology Urine Opiates Screen (>2000 NG/ML) 993.00 Methadone Screen (>300 NG/ML) < 40 Barbiturate Screen (>200 NG/ML) < 60 Ur Phencyclidine Scrn (>25 NG/ML) < 6.00 Amphetamines Screen (>1000 NG/ML) < 100 U Benzodiazepines Scrn (>200 NG/ML) < 85 Urine Cocaine Screen (>300 NG/ML) < 50 Urine Cannabis Screen (>50 NG/ML) > 80.00 H Microbiology Date/Time Procedure - Status Source Growth 02/12 1310 Surveillance Culture - COMP UPPER RESP 04/12 1310 Surveillance Culture - COMP GI Impression/Plan Impression/Plan Impression/Plan: General Appearance: no apparent distress Other Physical Findings: General Appearance: no apparent distress, awake, sedated Head: atraumatic Eyes: Bilateral: PERRL, EOMI. Ears, Nose, Throat: normal pharynx Neck: normal inspection, supple Respiratory: quiet respiration, rhonchi Cardiovascular: regular rate/rhythm Peripheral Pulses: 4+ carotid (R), 4+ carotid (L), 4+ radial (R), 4+ radial (L), 4+ femoral (R), 4+ femoral (L) Gastrointestinal: normal bowel sounds, soft, non-tender Extremities: normal inspection, no edema Neurologic/Psych: no motor/sensory deficits, awake, oriented x 3 Cranial Nerves: normal hearing, normal speech, PERRL Reflexes: 3+: knee (R), knee (L). Skin: intact, normal color Mr. 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 Problem list: 1. Aspiration pneumonia resolving 2. Polysubstance abuse with withdrawal syndrome on ativan drip 3. Anxiety 4. Normocytic anemia 5. Acute hypoxic respiratory failure resolved 6. Acute horizontal diplopia resolved REC Change to po augmentin and finish seven day total Start librium 100 mg q6 hr and dc ativan drip after few hours, and use prn ativan iv Cont other meds, dc clonidine, dicyclomine and reduce baclofen to q8 prn KEep in icu Check qtc and keep mag more than 2 and use antipsycotic only if needed - haldol REplace lytes Cont resp care Pt is critically ill tts 40 mns
[2018-02-14 16:00] VITALS: BP 120/70
[2018-02-14 20:00] VITALS: BP 115/77
[2018-02-15] VITALS (10 sets, daily range): BP systolic 120–148; BP diastolic 73–89
[2018-02-15 05:55] LABS: ABSOLUTE BASOPHIL COUNT 0 /CUMM (0.0-0.2); ABSOLUTE EOSINOPHIL COUNT 0.3 /CUMM (0.0-0.7); ABSOLUTE GRANULOCYTE CT 7.8 /CUMM (1.4-6.5); ABSOLUTE LYMPH COUNT 2.9 /CUMM (1.2-3.4); ABSOLUTE MONOCYTE COUNT 1.2 /CUMM (0.10-0.60); BASOPHIL % 0.2 % (0.0-2.0); EOSINOPHIL % 2.6 % (0-5); GRANULOCYTE % 63.6 % (42.2-75.2); HEMATOCRIT 46.8 % (42-52); MEAN CORPUSCULAR HGB 28.4 PG (27.0-31.0); MEAN CORPUSCULAR HGB CONC 33.4 G/DL (33.0-37.0); MEAN CORPUSCULAR VOLUME 85.1 FL (80.0-94.0); MEAN PLATELET VOLUME 7.7 FL (7.4-10.4); PLATELET COUNT 402 /CUMM (130-400); RBC DISTRIBUTION WIDTH 13.7 % (11.5-14.5); WHITE BLOOD CELL COUNT 12.3 /CUMM (4.8-10.8)
--- NOTE | 2018-02-15 09:25 | PN- CRCU ---
Subjective HPI/Critical Care Issues: HPI/CRCU Issues: 1. Polysubstance abuse 2. Seizures 3. Depression 4. Aspiration pneumonitis 5. Anion gap metabolic acidosis 24 Hour Events: Patient was seen and examined this morning. He is alert awake and oriented 3. No acute events overnight. He CIWA scoring was very low but given his polysubstance abuse he was started on Librium taper and currently he is receiving 100 mg every 6 hours since yesterday. Patient was insisting to be discharged home if not to be maybe tomorrow. Of note patient doesn't have insight and he cannot sign AMA. Objective Current Medications: Current Medications Sig/Kye Start time Last Medication Dose Route Stop Time Status Admin Acetaminophen 650 MG Q6P PRN 02/08 1845 AC PO Albuterol Sulfate 3 ML Q4P PRN 02/12 1330 DC INH Amoxicillin/ 875 MG Q12 02/14 0900 AC 02/15 Clavulanate Potassium PO 0910 Baclofen 10 MG Q8P PRN 02/14 1145 AC PO Chlordiazepoxide HCl 100 MG Q6 02/14 1200 AC 02/15 PO 1226 Enoxaparin Sodium 40 MG DAILY 02/08 1844 AC 02/12 SC 0816 Hydroxyzine HCl 50 MG Q6-PRN PRN 02/09 1600 AC 02/15 PO 1100 Ibuprofen 600 MG Q6P PRN 02/10 0700 AC PO Lisinopril 10 MG DAILY 02/12 1017 AC 02/15 PO 0909 Lorazepam 0 Q1P PRN 02/12 1345 AC 02/12 IV 2100 Melatonin 5 MG AT BEDTIME 02/09 2200 AC 02/14 PO 2127 Multivitamins 1 TAB DAILY 02/09 1549 AC 02/15 PO 0910 Omeprazole 20 MG DAILY AC 02/11 0815 AC 02/15 PO 0536 Ondansetron HCl 4 MG Q6P PRN 02/10 1015 AC 02/10 IV 1048 Vital Signs & I&O Last 24 Hrs of Vitals and I&O: Vital Signs Date Time Temp Pulse Resp B/P B/P Pulse O2 O2 Flow FiO2 Mean Ox Delivery Rate 02/15 1200 98.1 86 18 132/80 95 Room Air 02/15 1048 Room Air 02/15 0909 105 128/82 02/15 0800 98.8 96 18 128/82 95 Room Air 02/15 0400 99.5 93 18 148/85 02/15 0000 99.4 93 20 135/73 02/15 0000 99.4 93 20 135/73 94 Room Air 02/14 2000 99.5 92 20 115/77 02/14 1600 98.6 98 18 120/70 96 Room Air Intake & Output 02/15 1600 02/15 0800 02/15 0000 Intake Total 100 600 Output Total Balance 100 600 Intake, Oral 100 600 Exam General Appearance: no apparent distress, alert, awake, anxious Head: atraumatic, normal appearance Respiratory: normal breath sounds, chest non-tender Cardiovascular: regular rate/rhythm Extremities: normal inspection Results Last 24 Hrs of Lab Results: Laboratory Tests 02/15/18 0445: Anion Gap 13, Estimated GFR > 60, Glucose 108 H, Calcium 8.7, Phosphorus 4.4, Magnesium 2.1, Total Bilirubin 1.1, AST 298 H, ALT 89 H, Albumin 3.9, CBC w Diff NO MAN DIFF REQ, RBC 5.50, MCV 85.1, MCH 28.4, MCHC 33.4, RDW 13.7, MPV 7.7 , Gran % 63.6, Lymphocytes % 23.9, Monocytes % 9.7 H, Eosinophils % 2.6, Basophils % 0.2, Absolute Granulocytes 7.8 H, Absolute Lymphocytes 2.9, Absolute Monocytes 1.2 H, Absolute Eosinophils 0.3, Absolute Basophils 0 Impression/Plan Impression/Plan Impression/Plan: Mr Feliz is a 32-year-old gentleman with a past medical history of ? 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 At the time of presentation vitals-temperature 98.1, pulse rate 98, respiration 20, blood pressure 134/88, 98% on room air. Pertinent lab findings: WBC 9.6 ( 84.4% granulocytosis )--> 11.6 (02/12)--> 11.2 (02/13) Hemoglobin 12.4--> 14.2(02/12)--> 15.4(02/13) Sodium 139--> 137(02/12)--> 141(02/13) potassium 3.9--> 3.8(02/12)--> 3.6(02/13) BUN 12--> 15(02/12) Creatinine 0.5--> 0.7(02/12) Bicarbonate 20, anion gap 18 Urine toxicology 02/08/2018 urine opiates, benzodiazepines and cannabis positive Urine toxicology 02/12/2018 urine opiates, cannabis positive. Chest x-ray did not reveal any acute pulmonary process. 1. Polysubstance abuse 2. Seizures 3. Depression 4. Aspiration pneumonitis 5. Anion gap metabolic acidosis 1. Respiratory His respiratory status is better. 2. Infectious/aspiration pneumonitis In regards to his pneumonitis secondary to snorting Percocet. Patient remained afebrile with improvement of WBC count 11.3. Repeat chest x-ray was showing no consolidation. -Check WBC, monitor for leucocytosis -Change to po abx. -He will continue taking Augmentin for total of 7 days. 3. Circulatory-Monitor BP. 4. Hematology -Stable 5. Metabolic- -Checking BEP, Sr Cr, Mg, Phos -Replenish accordingly. 6. Alimentary-reg diet. 8. Neurology- seizures and polysubstance abuse Etiology in his case is likely due to drug withdrawal, since the patient has been taking higher dose of opiates/benzodiazepines for the last few weeks, which he has been taking more than prescribed; and sometimes off the street. Having taken higher dose in the past, and a qucik taper of benzos would have precipitated the withdrawl symptoms - seizure being the most extreme manifestation. Although, theoretically there is a role of flumazenil, but unsure if there is any role in these situations. Regardless, the treatment is ativan w/ a hope to taper it slowly, although there is no clear taper protocol for benzos. Even though he is scoring low on CIWA but given his history of polysubstance abuse we will continue Librium 400 mg every 6 hours for now and we will change it to every 8 hours tomorrow -Follow-up EEG -Hold Seroquel, and trazodone for now. -Use Haldol if needed, QTC 426 -------- Hypertension continue lisinopril 10 daily GERD continue omeprazole daily Acute horizontal diplopia resolved Housekeeping- 1. DVT PPx- lovenox sc 2. Full code. 3. REG DIET ICU check list: #1 Central line- none #2 Arterial line- none #3 Connelly catheter - none #4 Rectal tube - none. #5 NG tube- none. #6 IV/peripheral line- none. #7 IV drips- Ativan drip tapering down #8 Vent settings- none. #9 pressors - none.
--- NOTE | 2018-02-15 11:21 | PN- CRCU ---
Subjective HPI/Critical Care Issues: Still very anxious Afebrile vital signs otherwise stable doing better off Ativan drip Objective Current Medications: Current Medications Sig/Kye Start time Last Medication Dose Route Stop Time Status Admin Acetaminophen 650 MG Q6P PRN 02/08 1845 AC PO Albuterol Sulfate 3 ML Q4P PRN 02/12 1330 DC INH Amoxicillin/ 875 MG Q12 02/14 0900 AC 02/15 Clavulanate Potassium PO 0910 Baclofen 10 MG Q8P PRN 02/14 1145 AC PO Baclofen 10 MG Q6-PRN PRN 02/09 1600 DC 02/09 PO 2106 Chlordiazepoxide HCl 100 MG Q6 02/14 1200 AC 02/15 PO 0536 Clonidine 0.1 MG Q6 PRN 02/08 1815 DC 02/11 PO 2111 Dicyclomine HCl 20 MG 4 TIMES/DAY PRN 02/09 1600 DC 02/10 PO 0950 Enoxaparin Sodium 40 MG DAILY 02/08 1844 AC 02/12 SC 0816 Hydroxyzine HCl 50 MG Q6-PRN PRN 02/09 1600 AC 02/15 PO 1100 Ibuprofen 600 MG Q6P PRN 02/10 0700 AC PO Lisinopril 10 MG DAILY 02/12 1017 AC 02/15 PO 0909 Lorazepam 100 MG Q14H 02/13 1515 DC 02/14 Dextrose/Water 1,000 ML IV 0916 Lorazepam 0 Q1P PRN 02/12 1345 AC 02/12 IV 2100 Melatonin 5 MG AT BEDTIME 02/09 2200 AC 02/14 PO 2127 Multivitamins 1 TAB DAILY 02/09 1549 AC 02/15 PO 0910 Omeprazole 20 MG DAILY AC 02/11 0815 AC 02/15 PO 0536 Ondansetron HCl 4 MG Q6P PRN 02/10 1015 AC 02/10 IV 1048 Laboratory Tests 02/15 02/14 0445 0350 Chemistry Sodium (137 - 145 mmol/L) 136 L Potassium (3.5 - 5.1 mmol/L) 3.9 Chloride (98 - 107 mmol/L) 101 Carbon Dioxide (22 - 30 mmol/L) 22 Anion Gap (5 - 16) 13 BUN (9 - 20 mg/dL) 15 Creatinine (0.7 - 1.2 mg/dL) 0.8 Estimated GFR (>60 ml/min) > 60 Glucose (65 - 99 mg/dL) 108 H Lactic Acid (0.7 - 2.1 mmol/L) 1.1 Calcium (8.4 - 10.2 mg/dL) 8.7 Phosphorus (2.5 - 4.5 mg/dL) 4.4 Magnesium (1.6 - 2.3 mg/dL) 2.1 Total Bilirubin (0.2 - 1.3 mg/dL) 1.1 AST (17 - 59 U/L) 298 H ALT (21 - 72 U/L) 89 H Albumin (3.5 - 5.0 g/dL) 3.9 Hematology CBC w Diff NO MAN DIFF REQ WBC (4.8 - 10.8 /CUMM) 12.3 H RBC (4.70 - 6.10 /CUMM) 5.50 Hgb (14.0 - 18.0 G/DL) 15.6 Hct (42 - 52 %) 46.8 MCV (80.0 - 94.0 FL) 85.1 MCH (27.0 - 31.0 PG) 28.4 MCHC (33.0 - 37.0 G/DL) 33.4 RDW (11.5 - 14.5 %) 13.7 Plt Count (130 - 400 /CUMM) 402 H MPV (7.4 - 10.4 FL) 7.7 Gran % (42.2 - 75.2 %) 63.6 Lymphocytes % (20.5 - 51.1 %) 23.9 Monocytes % (1.7 - 9.3 %) 9.7 H Eosinophils % (0 - 5 %) 2.6 Basophils % (0.0 - 2.0 %) 0.2 Absolute Granulocytes (1.4 - 6.5 /CUMM) 7.8 H Absolute Lymphocytes (1.2 - 3.4 /CUMM) 2.9 Absolute Monocytes (0.10 - 0.60 /CUMM) 1.2 H Absolute Eosinophils (0.0 - 0.7 /CUMM) 0.3 Absolute Basophils (0.0 - 0.2 /CUMM) 0 02/14 0350 Chemistry Sodium (137 - 145 mmol/L) 141 Potassium (3.5 - 5.1 mmol/L) 4.1 Chloride (98 - 107 mmol/L) 105 Carbon Dioxide (22 - 30 mmol/L) 20 L Anion Gap (5 - 16) 16 BUN (9 - 20 mg/dL) 14 Creatinine (0.7 - 1.2 mg/dL) 0.7 Estimated GFR (>60 ml/min) > 60 Glucose (65 - 99 mg/dL) 107 H Calcium (8.4 - 10.2 mg/dL) 8.9 Phosphorus (2.5 - 4.5 mg/dL) 5.2 H Magnesium (1.6 - 2.3 mg/dL) 2.2 Total Bilirubin (0.2 - 1.3 mg/dL) 0.7 AST (17 - 59 U/L) 48 ALT (21 - 72 U/L) 44 Albumin (3.5 - 5.0 g/dL) 4.2 Hematology CBC w Diff NO MAN DIFF REQ WBC (4.8 - 10.8 /CUMM) 11.3 H RBC (4.70 - 6.10 /CUMM) 5.41 Hgb (14.0 - 18.0 G/DL) 15.2 Hct (42 - 52 %) 46.2 MCV (80.0 - 94.0 FL) 85.3 MCH (27.0 - 31.0 PG) 28.2 MCHC (33.0 - 37.0 G/DL) 33.0 RDW (11.5 - 14.5 %) 13.6 Plt Count (130 - 400 /CUMM) 370 MPV (7.4 - 10.4 FL) 7.7 Gran % (42.2 - 75.2 %) 56.3 Lymphocytes % (20.5 - 51.1 %) 30.4 Monocytes % (1.7 - 9.3 %) 9.7 H Eosinophils % (0 - 5 %) 3.2 Basophils % (0.0 - 2.0 %) 0.4 Absolute Granulocytes (1.4 - 6.5 /CUMM) 6.4 Absolute Lymphocytes (1.2 - 3.4 /CUMM) 3.4 Absolute Monocytes (0.10 - 0.60 /CUMM) 1.1 H Absolute Eosinophils (0.0 - 0.7 /CUMM) 0.4 Absolute Basophils (0.0 - 0.2 /CUMM) 0.1 Microbiology Date/Time Procedure - Status Source Growth 02/12 1310 Surveillance Culture - COMP UPPER RESP 04/12 1310 Surveillance Culture - COMP GI Vital Signs & I&O Last 24 Hrs of Vitals and I&O: Vital Signs Date Time Temp Pulse Resp B/P B/P Pulse O2 O2 Flow FiO2 Mean Ox Delivery Rate 02/15 1048 Room Air 02/15 0909 105 128/82 02/15 0800 98.8 96 18 128/82 95 Room Air 02/15 0400 99.5 93 18 148/85 02/15 0000 99.4 93 20 135/73 04 0000 99.4 93 20 135/73 94 Room Air 02/14 2000 99.5 92 20 115/77 02/14 1600 98.6 98 18 120/70 96 Room Air Intake & Output 02/15 1600 02/15 0800 02/15 0000 Intake Total 100 600 Output Total Balance 100 600 Intake, Oral 100 600 Impression/Plan Impression/Plan Impression/Plan: General Appearance: no apparent distress Other Physical Findings: General Appearance: no apparent distress, awake, sedated Head: atraumatic Eyes: Bilateral: PERRL, EOMI. Ears, Nose, Throat: normal pharynx Neck: normal inspection, supple Respiratory: quiet respiration, rhonchi Cardiovascular: regular rate/rhythm Peripheral Pulses: 4+ carotid (R), 4+ carotid (L), 4+ radial (R), 4+ radial (L), 4+ femoral (R), 4+ femoral (L) Gastrointestinal: normal bowel sounds, soft, non-tender Extremities: normal inspection, no edema Neurologic/Psych: no motor/sensory deficits, awake, oriented x 3 Cranial Nerves: normal hearing, normal speech, PERRL Reflexes: 3+: knee (R), knee (L). Skin: intact, normal color Mr. 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 Problem list: 1. Aspiration pneumonia resolving 2. Polysubstance abuse with withdrawal syndrome on high dose benzo 3. Anxiety 4. Normocytic anemia 5. Acute hypoxic respiratory failure resolved 6. Acute horizontal diplopia resolved REC Augmentin and finish seven day total Librium 100 mg q6 hr today and change to 100 q8 in am and taper Cont hydroxazine and prn baclofen Qtc is 436 today and can give prn haldol if needed and keep mag more than [address] Stable ok to the floor with a sitter
[2018-02-16 02:00] VITALS: BP 138/88
[2018-02-16 04:26] VITALS: BP 140/88
--- NOTE | 2018-02-16 07:06 | PN- Housestaff ---
See Addendum Subjective Follow-up For: Acute withdrawal from benzodiazepines Subjective: No overnight events. The patient was transferred from the ICU to general medicine over the weekend after stabilization of his condition. Reports feeling much better including no chest pain or shortness of breath or tremors and anxiety. He expresses a strong desire to leave today. He says he is ready to go to rehabilitation. Review of Systems Constitutional: Reports: no symptoms. EENTM: Reports: no symptoms. Cardiovascular: Reports: no symptoms. Respiratory: Reports: no symptoms. Gastrointestinal: Reports: no symptoms. Genitourinary: Reports: no symptoms. Musculoskeletal: Reports: no symptoms. Skin: Reports: no symptoms. Neurological/Psychological: Reports: see HPI. Hematologic/Endocrine: Reports: no symptoms. Immunologic/Allergic: Reports: no symptoms. Objective Last 24 Hrs of Vital Signs/I&O Vital Signs Date Time Temp Pulse Resp B/P B/P Pulse O2 O2 Flow FiO2 Mean Ox Delivery Rate 02/16 0426 98.0 84 20 140/88 96 02/16 0200 97.5 97 20 138/88 02/15 2132 98.4 91 16 125/78 02/15 2120 98.4 90 16 125/78 98 02/15 2000 98.4 90 16 120/80 02/15 1800 98.0 109 18 128/89 99 Room Air 02/15 1600 98.4 94 16 128/78 02/15 1600 98.4 94 16 128/78 98 02/15 1427 97.7 92 18 138/80 96 Room Air 02/15 1200 98.1 86 18 132/80 95 Room Air 02/15 1048 Room Air 02/15 0909 105 128/82 02/15 0800 98.8 96 18 128/82 95 Room Air Intake & Output 02/16 0800 02/16 0000 02/15 1600 Intake Total 120 1820 500 Output Total 900 Balance 120 920 500 Intake, IV 20 20 Intake, Oral 120 1800 480 Number 0 1 Bowel Movements Output, Urine 900 Physical Exam General Appearance: Alert, Oriented X3, Cooperative, No Acute Distress Cardiovascular: Regular Rate, Normal S1, Normal S2 Lungs: Clear to Auscultation Abdomen: Normal Bowel Sounds, Soft, No Tenderness Extremities: No Edema, Normal Pulses, No Tenderness/Swelling Current Medications: Current Medications Sig/Kye Start time Last Medication Dose Route Stop Time Status Admin Acetaminophen 650 MG Q6P PRN 04/08 1845 AC PO Albuterol Sulfate 3 ML Q4P PRN 02/12 1330 DC INH Amoxicillin/ 875 MG Q12 02/14 0900 AC 02/15 Clavulanate Potassium PO 2023 Baclofen 10 MG Q8P PRN 02/14 1145 AC PO Chlordiazepoxide HCl 100 MG Q8 02/16 0600 AC 02/16 PO 0502 Chlordiazepoxide HCl 100 MG Q6 02/14 1200 DC 02/15 PO 02/16 0559 2357 Enoxaparin Sodium 40 MG DAILY 02/08 1844 AC 02/12 SC 0816 Guaifenesin 600 MG Q12 02/15 2100 CAN PO Hydroxyzine HCl 50 MG Q6-PRN PRN 02/09 1600 AC 02/15 PO 202 Ibuprofen 600 MG Q6P PRN 02/10 0700 AC PO Lisinopril 10 MG DAILY 02/12 1017 AC 02/15 PO 0909 Lorazepam 0 Q1P PRN 02/12 1345 AC 02/16 IV 0506 Melatonin 5 MG AT BEDTIME 02/09 2200 AC 02/15 PO 202 Multivitamins 1 TAB DAILY 02/09 1549 AC 02/15 PO 0910 Omeprazole 20 MG DAILY AC 02/11 0815 AC 02/16 PO 0501 Ondansetron HCl 4 MG Q6P PRN 02/10 1015 AC 02/10 IV 1048 Assessment/Plan Assessment: Mr. 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 Problem list: 1. Polysubstance abuse with withdrawal seizure 2. Transaminitis 3. Aspiration pneumonia, resolved 4. Anxiety 5. Normocytic anemia 6. Acute hypoxic respiratory failure, resolved 7. Acute horizontal diplopia, resolved #Polysubstance abuse: Patient has history of polysubstance (benzodiazepines, opioids, cannabis) abuse and will likely need rehabilitation after medically stabilized. He was initially admitted to general medicine and his withdrawal was treated with CIWA protocol and tapering lorazepam. However, on 02/13/18, patient had generalized tonic-clonic seizure and was transferred to the ICU for lorazepam drip. Please see event note. Neurology was consulted. He has since been stabilized and transferred back to general medicine on 02/15/18. Over the past 24 hours, his CIWA scores have been 0-8 and he has required 3 mg of additional IV lorazepam. -Stop chlordiazepoxide -Start lorazepam 2 mg every 6 hours -CIWA protocol, lorazepam IV as necessary -Clonidine as necessary -Hydroxyzine 50 mg every 6 when necessary anxiety, dicyclomine 20 mg 4 times a day when necessary GI upset, baclofen 10 mg every 6 when necessary muscle cramps -Ibuprofen 600 mg every 6 hours for pain -Quetiapine 50 mg at bedtime when necessary insomnia -Appreciate psychiatry recommendations -Social work consult -Appreciate neurology recommendations -Follow-up EEG #Transaminitis: Yesterday, patient's hepatic liver enzyme increased. Potentially secondary to Augmentin therapy or chlordiazepoxide -Continue to monitor #Aspiration pneumonia: Patient was very somnolent on admission, crackles on exam , and chest x-ray findings consistent with possible aspiration pneumonia. He also had leukocytosis and tachycardia and hypoxia. His breathing is improving, now off oxygen. He has received 7 days of antibiotics. -Stop antibiotics #Acute horizontal diplopia: Patient was complaining of horizontal diplopia that was worse with upgaze. On exam, his right eye deviated inward on upgaze. He says he is still having some diplopia but it is improving. Head CT was negative and neurology evaluated as well. This has since gotten better. It was likely secondary to sedating medications. -Continue to monitor #Normocytic anemia: Iron studies are normal. -Continue to monitor DVT prophylaxis with enoxaparin Regular diet Full code Problem List: 1. Benzodiazepine withdrawal with complication Pain Ratin Pain Location: no Pain Goal: Remain pain free Pain Plan: no Tomorrow's Labs & Rationales: lft
[2018-02-16 08:30] LABS: ABSOLUTE BASOPHIL COUNT 0 /CUMM (0.0-0.2); ABSOLUTE EOSINOPHIL COUNT 0.3 /CUMM (0.0-0.7); ABSOLUTE GRANULOCYTE CT 6.4 /CUMM (1.4-6.5); ABSOLUTE LYMPH COUNT 2.6 /CUMM (1.2-3.4); ABSOLUTE MONOCYTE COUNT 1.1 /CUMM (0.10-0.60); BASOPHIL % 0.3 % (0.0-2.0); EOSINOPHIL % 2.9 % (0-5); GRANULOCYTE % 61.7 % (42.2-75.2); MEAN CORPUSCULAR HGB 28.7 PG (27.0-31.0); MEAN CORPUSCULAR VOLUME 84.2 FL (80.0-94.0); MEAN PLATELET VOLUME 7.8 FL (7.4-10.4); PLATELET COUNT 414 /CUMM (130-400); RBC DISTRIBUTION WIDTH 13.2 % (11.5-14.5); RED BLOOD CELL CT 5.22 /CUMM (4.70-6.10); WHITE BLOOD CELL COUNT 10.4 /CUMM (4.8-10.8)
--- NOTE | 2018-02-16 09:20 | Transfer of Care Summary ---
Hospital Course Course Hospital Course: Mr Feliz is a 32-year-old gentleman with a past medical history of ? 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 At the time of presentation vitals-temperature 98.1, pulse rate 98, respiration 20, blood pressure 134/88, 98% on room air. Pertinent lab findings: WBC 9.6 ( 84.4% granulocytosis )--> 11.6 (02/12)--> 11.2 (02/13) Hemoglobin 12.4--> 14.2(02/12)--> 15.4(02/13) Sodium 139--> 137(02/12)--> 141(02/13) potassium 3.9--> 3.8(02/12)--> 3.6(02/13) BUN 12--> 15(02/12) Creatinine 0.5--> 0.7(02/12) Bicarbonate 20, anion gap 18 Urine toxicology 02/08/2018 urine opiates, benzodiazepines and cannabis positive Urine toxicology 02/12/2018 urine opiates, cannabis positive. Chest x-ray Generalized prominence of the bronchovascular markings with some areas of peribronchial cuffing centrally without confluent consolidation or collapse. Findings may represent small airways disease. 1. Polysubstance abuse 2. Seizures 3. Depression 4. Aspiration pneumonitis 5. Anion gap metabolic acidosis- resolved 1. Respiratory-stable 2. Infectious/aspiration pneumonitis In regards to his pneumonitis secondary to snorting Percocet- Patient remained afebrile with improvement of WBC count 11.3. Repeat chest x-ray was showing no consolidation. Initially he was on IV Unasyn, started oral Augmentin on 2017 to complete 7 day course. provide supplemental oxygen as needed. Acute hypoxic respiratory failure was resolved. 3. Circulatory-Monitor BP. 4. Hematology -Stable WBC, hemoglobin, platelets 5. Metabolic- -Checking BEP, Sr Cr, Mg, Phos -Replenish accordingly. 6. Alimentary-reg diet. 8. Neurology- seizures and polysubstance abuse Etiology in his case is likely due to drug withdrawal, since the patient has been taking higher dose of opiates/benzodiazepines for the last few weeks, which he has been taking more than prescribed; and sometimes off the street. Having taken higher dose in the past, and a qucik taper of benzos would have precipitated the withdrawl symptoms - seizure being the most extreme manifestation. He was moved to ICU from general medicine floor for withdrawal seizures. Patient was started on Ativan drip, discontinued after 48 hours based on CIWA scoring. He received IV Ativan as needed for agitation. Patient was started on Librium 100 mg every 6 hours on 02/14/2018 with plan for gradual tapering. Neurology was consulted given his seizures. EEG was ordered. Follow-up EEG. -------- Hypertension continue lisinopril 10 daily GERD continue omeprazole daily Acute horizontal diplopia resolved Housekeeping- 1. DVT PPx- lovenox sc 2. Full code. 3. REG DIET ICU check list: #1 Central line- none #2 Arterial line- none #3 Connelly catheter - none #4 Rectal tube - none. #5 NG tube- none. #6 IV/peripheral line-yes #7 IV drips- Ativan drip d/chris #8 Vent settings- none. #9 pressors - none. Assessment/Plan: .
--- NOTE | 2018-02-16 09:24 | ELECTROENCEPHALOGRAM REPORT ---
Electroencephalogram Report Electroencephalogram Results Date of service: 02/13/18 Attending MD: Jerry Webb MD Electrical Worker: [facility] Number: [id number] Test Utilizes: 10-20 system, 21 lead 18 channel digital recording Pertinent Hx/Physical/Neuro Findings/Clin Diagnosis: Seizure. Inpatient Medications: Current Medications Sig/Kye Start time Last Medication Dose Route Stop Time Status Admin Acetaminophen 650 MG Q6P PRN 02/08 1845 AC PO Albuterol Sulfate 3 ML Q4P PRN 02/12 1330 DC INH Amoxicillin/ 875 MG Q12 02/14 0900 DC 15 Clavulanate Potassium PO 2024 Baclofen 10 MG Q8P PRN 02/14 1145 AC PO Chlordiazepoxide HCl 100 MG Q8 02/16 0600 AC 02/16 PO 0502 Chlordiazepoxide HCl 100 MG Q6 02/14 1200 DC 02/15 PO 02/16 0559 2357 Enoxaparin Sodium 40 MG DAILY 02/08 1844 AC 02/12 SC 0816 Guaifenesin 600 MG Q12 02/15 2100 CAN PO Hydroxyzine HCl 50 MG Q6-PRN PRN 02/09 1600 AC 02/15 PO 2024 Ibuprofen 600 MG Q6P PRN 02/10 0700 AC PO Lisinopril 10 MG DAILY 02/12 1017 AC 02/16 PO 0902 Lorazepam 0 Q1P PRN 02/12 1345 AC 02/16 IV 0506 Melatonin 5 MG AT BEDTIME 02/09 2200 AC 02/15 PO 2023 Multivitamins 1 TAB DAILY 02/09 1549 AC 02/16 PO 0902 Omeprazole 20 MG DAILY AC 02/11 0815 AC 02/16 PO 0501 Ondansetron HCl 4 MG Q6P PRN 02/10 1015 AC 02/10 IV 1048 Interpretation: The recording demonstrates a diminshed normal frequency gradient, due to prevailing fast frequencies throughout all leads. The predominant background is composed of low amplitude beta rhythms. Otherwise, there is good symmetry between the two hemispheres and no focal slowing. There are no paroxysmal sharps or spikes. The PDR is estimated to be 15 hertz bilaterally. Impression: Normal recording with fast rhythms likely a benzodiazepine effect.
[2018-02-16 11:00] VITALS: BP 120/80
--- NOTE | 2018-02-16 12:03 | PN- Psychiatry ---
Assessment/Plan Impression: The patient is asking to leave the hospital and verbalizes understanding of the risk of seizure and if he leaves the hospital AMA before his benzodiazepine taper is finished, as he will not be given additional benzodiazepines at discharge if he leaves under those circumstances. He promises to stay until tomorrow, 02/17/18. If he is not suicidal, not psychotic and not delusional, he has the capacity to leave against medical advice, but we prefer he stay for the completion of his treatment. At home, the patient has lorazepam 1 mg up to 3X/day (#30 for 10 days on 01/23/18 ), and he takes 1-2 tabs daily. He reports he has this medicaiton at home. The patient is not suicidal, not psychotic and not delirous at this time. Suggestion: 1. Continue the lorazepam taper for benzodiazepine withdrawal. We will revisit the patient on 02/17/18. Thank you for this consult Subjective Subjective: Alert and oriented. Denies AH, VH and presents no nestor delusions. He denies suicidal or homicidal ideation He takes lorazepam 1 mg, 1-2 tablets daily as needed for anxiety. Review of Systems Neurological/Psychological: Reports: anxiety. Objective Last 24 Hrs of Vital Signs/I&O Vital Signs Date Time Temp Pulse Resp B/P B/P Pulse O2 O2 Flow FiO2 Mean Ox Delivery Rate 02/16 1100 98.0 84 20 120/80 97 Room Air 02/16 0902 130/100 02/16 0426 98.0 84 20 140/88 96 02/16 0200 97.5 97 20 138/88 02/15 2132 98.4 91 16 125/78 02/15 2120 98.4 90 16 125/78 98 02/15 2000 98.4 90 16 120/80 02/15 1800 98.0 109 18 128/89 99 Room Air 02/15 1600 98.4 94 16 128/78 02/15 1600 98.4 94 16 128/78 98 02/15 1427 97.7 92 18 138/80 96 Room Air Intake & Output 02/16 1600 02/16 0800 02/16 0000 Intake Total 120 1820 Output Total 900 Balance 120 920 Intake, IV 20 Intake, Oral 120 1800 Number 0 Bowel Movements Output, Urine 900 Physical Exam: Not performed Physical Exam General Appearance: no apparent distress, alert, awake, anxious, comfortable Neurologic/Psychiatric: awake, alert, oriented x 3, normal gait Current Medications: Current Medications Sig/Kye Start time Last Medication Dose Route Stop Time Status Admin Acetaminophen 650 MG Q6P PRN 02/08 1845 AC PO Amoxicillin/ 875 MG Q12 02/14 0900 DC 02/15 Clavulanate Potassium PO 202 Baclofen 10 MG Q8P PRN 02/14 1145 AC PO Chlordiazepoxide HCl 100 MG Q8 02/16 0600 DC 02/16 PO 0502 Chlordiazepoxide HCl 100 MG Q6 02/14 1200 DC 02/15 PO 02/16 0559 2357 Enoxaparin Sodium 40 MG DAILY 02/08 1844 AC 02/12 SC 0816 Guaifenesin 600 MG Q12 02/15 2100 CAN PO Hydroxyzine HCl 50 MG Q6-PRN PRN 02/09 1600 AC 02/15 PO 202 Ibuprofen 600 MG Q6P PRN 02/10 0700 AC PO Lisinopril 10 MG DAILY 02/12 1017 AC 02/16 PO 0902 Lorazepam 2 MG Q4 02/16 1800 AC PO Lorazepam 2 MG Q6 02/16 1200 DC 02/16 PO 1237 Lorazepam 0 Q1P PRN 02/12 1345 AC 02/16 IV 0506 Melatonin 5 MG AT BEDTIME 02/09 2200 AC 02/15 PO 202 Multivitamins 1 TAB DAILY 02/09 1549 AC 02/16 PO 0902 Omeprazole 20 MG DAILY AC 02/11 0815 AC 02/16 PO 0501 Ondansetron HCl 4 MG Q6P PRN 02/10 1015 AC 02/10 IV 1048 Results Last 24 Hrs of Labs/Mics: Laboratory Tests 02/16 0720 Chemistry Sodium (137 - 145 mmol/L) 137 Potassium (3.5 - 5.1 mmol/L) 3.8 Chloride (98 - 107 mmol/L) 102 Carbon Dioxide (22 - 30 mmol/L) 24 Anion Gap (5 - 16) 11 BUN (9 - 20 mg/dL) 13 Creatinine (0.7 - 1.2 mg/dL) 0.7 Estimated GFR (>60 ml/min) > 60 BUN/Creatinine Ratio (7 - 25 %) 18.6 Total Bilirubin (0.2 - 1.3 mg/dL) 0.9 Direct Bilirubin (< 0.4 mg/dL) 0.2 AST (17 - 59 U/L) 647 H ALT (21 - 72 U/L) 157 H Alkaline Phosphatase (< 127 U/L) 53 Total Protein (6.3 - 8.2 g/dL) 7.1 Albumin (3.5 - 5.0 g/dL) 4.0 Hematology CBC w Diff NO MAN DIFF REQ WBC (4.8 - 10.8 /CUMM) 10.4 RBC (4.70 - 6.10 /CUMM) 5.22 Hgb (14.0 - 18.0 G/DL) 15.0 Hct (42 - 52 %) 44.0 MCV (80.0 - 94.0 FL) 84.2 MCH (27.0 - 31.0 PG) 28.7 MCHC (33.0 - 37.0 G/DL) 34.0 RDW (11.5 - 14.5 %) 13.2 Plt Count (130 - 400 /CUMM) 414 H MPV (7.4 - 10.4 FL) 7.8 Gran % (42.2 - 75.2 %) 61.7 Lymphocytes % (20.5 - 51.1 %) 25.0 Monocytes % (1.7 - 9.3 %) 10.1 H Eosinophils % (0 - 5 %) 2.9 Basophils % (0.0 - 2.0 %) 0.3 Absolute Granulocytes (1.4 - 6.5 /CUMM) 6.4 Absolute Lymphocytes (1.2 - 3.4 /CUMM) 2.6 Absolute Monocytes (0.10 - 0.60 /CUMM) 1.1 H Absolute Eosinophils (0.0 - 0.7 /CUMM) 0.3 Absolute Basophils (0.0 - 0.2 /CUMM) 0
[2018-02-16 20:59] VITALS: BP 125/61
[2018-02-17 06:01] VITALS: BP 158/90
--- NOTE | 2018-02-17 06:48 | PN- Housestaff ---
See Addendum Subjective Follow-up For: Benzodiazepine withdrawal Subjective: No overnight events. Patient denies any anxiety, tremors, chest pain, shortness breath, abdominal pain, nausea, vomiting, diarrhea. He expresses a desire to leave AGAINST MEDICAL ADVICE this morning. Review of Systems Constitutional: Reports: no symptoms. EENTM: Reports: no symptoms. Cardiovascular: Reports: no symptoms. Respiratory: Reports: no symptoms. Gastrointestinal: Reports: no symptoms. Genitourinary: Reports: no symptoms. Musculoskeletal: Reports: no symptoms. Skin: Reports: no symptoms. Neurological/Psychological: Reports: see HPI. Hematologic/Endocrine: Reports: no symptoms. Immunologic/Allergic: Reports: no symptoms. Objective Last 24 Hrs of Vital Signs/I&O Vital Signs Date Time Temp Pulse Resp B/P B/P Pulse O2 O2 Flow FiO2 Mean Ox Delivery Rate 02/17 0601 98.1 76 20 158/90 96 Room Air 02/16 2059 98.9 78 18 125/61 97 Room Air 02/16 1100 98.0 84 20 120/80 97 Room Air 02/16 0902 130/100 Intake & Output 02/17 0800 02/17 0000 02/16 1600 Intake Total 520 1750 Output Total Balance 520 1750 Intake, IV 0 Intake, Oral 520 1750 Number 0 Bowel Movements Physical Exam General Appearance: Alert, Oriented X3, Cooperative, No Acute Distress Cardiovascular: Regular Rate, Normal S1, Normal S2 Lungs: Clear to Auscultation Abdomen: Normal Bowel Sounds, Soft, No Tenderness Extremities: No Edema, Normal Pulses, No Tenderness/Swelling Current Medications: Current Medications Sig/Kye Start time Last Medication Dose Route Stop Time Status Admin Acetaminophen 650 MG Q6P PRN 02/08 1845 AC PO Amoxicillin/ 875 MG Q12 02/14 0900 DC 02/15 Clavulanate Potassium PO 202 Baclofen 10 MG Q8P PRN 02/14 1145 AC PO Chlordiazepoxide HCl 100 MG Q8 02/16 0600 DC 02/16 PO 0502 Enoxaparin Sodium 40 MG DAILY 02/08 1844 AC 02/12 SC 0816 Hydroxyzine HCl 50 MG Q6-PRN PRN 02/09 1600 AC 02/15 PO 2024 Ibuprofen 600 MG Q6P PRN 02/10 0700 AC PO Lisinopril 10 MG DAILY 02/12 1017 AC 02/16 PO 0902 Lorazepam 2 MG Q4 02/16 1800 AC 02/17 PO 0513 Lorazepam 2 MG Q6 02/16 1200 DC 02/16 PO 1237 Lorazepam 0 Q1P PRN 02/12 1345 AC 02/16 IV 0506 Melatonin 5 MG AT BEDTIME 02/09 2200 AC 02/16 PO 2117 Multivitamins 1 TAB DAILY 02/09 1549 AC 02/16 PO 0902 Omeprazole 20 MG DAILY AC 02/11 0815 AC 02/17 PO 0512 Ondansetron HCl 4 MG Q6P PRN 02/10 1015 AC 02/10 IV 1048 Last 24 Hrs of Lab/Nabil Results Last 24 Hrs of Labs/Mics: Laboratory Tests 02/16/18 0720: Anion Gap 11, Estimated GFR > 60, BUN/Creatinine Ratio 18.6, Total Bilirubin 0.9 , Direct Bilirubin 0.2, AST 647 H, ALT 157 H, Alkaline Phosphatase 53, Total Protein 7.1, Albumin 4.0, CBC w Diff NO MAN DIFF REQ, RBC 5.22, MCV 84.2, MCH 28.7, MCHC 34.0, RDW 13.2, MPV 7.8, Gran % 61.7, Lymphocytes % 25.0, Monocytes % 10.1 H, Eosinophils % 2.9, Basophils % 0.3, Absolute Granulocytes 6.4, Absolute Lymphocytes 2.6, Absolute Monocytes 1.1 H, Absolute Eosinophils 0.3, Absolute Basophils 0 Assessment/Plan Assessment: Mr. 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 Problem list: 1. Polysubstance abuse with withdrawal seizure 2. Transaminitis 3. Aspiration pneumonia, resolved 4. Anxiety 5. Normocytic anemia 6. Acute hypoxic respiratory failure, resolved 7. Acute horizontal diplopia, resolved #Polysubstance abuse: Patient has history of polysubstance (benzodiazepines, opioids, cannabis) abuse and will likely need rehabilitation after medically stabilized. He was initially admitted to general medicine and his withdrawal was treated with CIWA protocol and tapering lorazepam. However, on 02/13/18, patient had generalized tonic-clonic seizure and was transferred to the ICU for lorazepam drip. Please see event note. Neurology was consulted. He has since been stabilized and transferred back to general medicine on 02/15/18. Over the past 24 hours, his CIWA scores have been 0-8 and he has required a total of 13 mg of lorazepam. EEG showed findings consistent with benzodiazepine use. Patient wants to leave AGAINST MEDICAL ADVICE and psychiatry believes that he has capacity based on yesterday's evaluation. -lorazepam 2 mg every 6 hours, consider tapering -CIWA protocol, lorazepam IV as necessary -Clonidine as necessary -Hydroxyzine 50 mg every 6 when necessary anxiety, dicyclomine 20 mg 4 times a day when necessary GI upset, baclofen 10 mg every 6 when necessary muscle cramps -Ibuprofen 600 mg every 6 hours for pain -Quetiapine 50 mg at bedtime when necessary insomnia -Appreciate psychiatry recommendations -Social work consult #Transaminitis: hepatic liver enzyme increased. Potentially secondary to Augmentin therapy or chlordiazepoxide -Continue to monitor #Aspiration pneumonia: Patient was very somnolent on admission, crackles on exam , and chest x-ray findings consistent with possible aspiration pneumonia. He also had leukocytosis and tachycardia and hypoxia. His breathing is improving, now off oxygen. He has received 7 days of antibiotics. -CTM #Acute horizontal diplopia: Patient was complaining of horizontal diplopia that was worse with upgaze. On exam, his right eye deviated inward on upgaze. He says he is still having some diplopia but it is improving. Head CT was negative and neurology evaluated as well. This has since gotten better. It was likely secondary to sedating medications. -Continue to monitor #Normocytic anemia: Iron studies are normal. -Continue to monitor DVT prophylaxis with enoxaparin Regular diet Full code Problem List: 1. Benzodiazepine withdrawal with complication Pain Ratin Pain Location: no Pain Goal: Remain pain free Pain Plan: see a/p Tomorrow's Labs & Rationales: cbc, bep, lft
--- NOTE | 2018-02-17 09:11 | PN- Psychiatry ---
Assessment/Plan Impression: Repeat liver enzymes are pending. They were elevated yesterday and the patient's detox taper was changed from chlordiazepoxide to lorazepam, which has lower risk of liver irritation. The patient reports he slept well last night and is feeling well. We prefer that the patient stay to complete his lorazepam detox taper protocol, especially in light of his seizure earlier in this admission. He declines to stay and verbalizes understanding of the risk of having another seizure and possibly . I believe that he does have this understanding. He understands that he will not be given benzodiazepines if he leaves AMA. He is not suicidal, psychotic nor delirious. He was cautioned to stay around other people so that if he does have a seizure, he will have help sooner. He states he has asked his girlfriend to stay with him. He was told that he is welcome to come back if he needs further help, which he says he appreciates. Suggestion: 1. Please encourage the patient to stay to complete his treatment. If he insists on leaving, then he has an understanding that he is at risk for seizure or . 2. Encourage the patient to not be alone for the next few days, to avoid an unwitnessed seizure. 3. The patient has been encouraged to seek psychiatric help for anxiety, including inquiring about starting an SSRI. The patient is cleared to leave from a psychiatric viewpoint. Thank you for this consult. Psychiatry is signing off. Subjective Subjective: Alert and oriented to person, place, month, year, off by one day and date. Denies suditory or visual hallucinations. The patient denies suicidal or homicidal ideation. He verbalizes understanding of the risks of leaving AGAINST MEDICAL ADVICE before his lorazepam taper this complete, including seizure and possibly . He reports he is eager to get back to his life, and would like to get and start a family. Review of Systems Neurological/Psychological: Reports: no symptoms. Objective Last 24 Hrs of Vital Signs/I&O Vital Signs Date Time Temp Pulse Resp B/P B/P Pulse O2 O2 Flow FiO2 Mean Ox Delivery Rate 02/17 0601 98.1 76 20 158/90 96 Room Air 02/16 2059 98.9 78 18 125/61 97 Room Air 02/16 1100 98.0 84 20 120/80 97 Room Air 02/16 0902 130/100 Intake & Output 02/17 1600 02/17 0800 02/17 0000 Intake Total 120 520 Output Total Balance 120 520 Intake, Oral 120 520 Physical Exam: Not performed Physical Exam General Appearance: no apparent distress, alert, awake, comfortable Neurologic/Psychiatric: awake, alert, oriented x 3 Current Medications: Current Medications Sig/Kye Start time Last Medication Dose Route Stop Time Status Admin Acetaminophen 650 MG Q6P PRN 02/08 1845 AC PO Baclofen 10 MG Q8P PRN 02/14 1145 AC PO Chlordiazepoxide HCl 100 MG Q8 02/16 0600 DC 02/16 PO 0502 Enoxaparin Sodium 40 MG DAILY 02/08 1844 AC 02/12 SC 0816 Hydroxyzine HCl 50 MG Q6-PRN PRN 02/09 1600 AC 02/15 PO 2024 Ibuprofen 600 MG Q6P PRN 02/10 0700 AC PO Lisinopril 10 MG DAILY 02/12 1017 AC 02/16 PO 0902 Lorazepam 2 MG Q4 02/16 1800 AC 02/17 PO 0513 Lorazepam 2 MG Q6 02/16 1200 DC 02/16 PO 1237 Lorazepam 0 Q1P PRN 02/12 1345 AC 02/16 IV 0506 Melatonin 5 MG AT BEDTIME 02/09 2200 AC 02/16 PO 2117 Multivitamins 1 TAB DAILY 02/09 1549 AC 02/16 PO 0902 Omeprazole 20 MG DAILY AC 02/11 0815 AC 02/17 PO 0512 Ondansetron HCl 4 MG Q6P PRN 02/10 1015 AC 02/10 IV 1048 Results Last 24 Hrs of Labs/Mics: Laboratory Tests 02/17 0816 Chemistry Total Bilirubin Pending Direct Bilirubin Pending AST Pending ALT Pending Alkaline Phosphatase Pending Total Protein Pending Albumin Pending
[2018-02-17 09:14] VITALS: BP 158/90
[2018-02-17] MEDS ORDERED: OMEPRAZOLE20 M2 PO (10:35)
[2018-02-17] MEDS ORDERED: LISINOPRIL10 M1 PO (10:35)
[2018-02-17] MEDS ORDERED: ONE DAILY MULT1 EAC2 PO (10:36)
[2018-02-17] MEDS ORDERED: MELATONIN5 M7 PO (10:36)
--- NOTE | 2018-02-17 10:42 | Discharge Summary ---
Visit Information Visit Dates Admission Date: 02/08/18 Discharge Date: 02/17/18 Hospital Course Course Attending Physician: Gt DELVALLE,Carol Ann Primary Care Physician: Unknown Hospital Course: Mr. Feliz is a 32-year-old male with past medical history of bowels asthma and cyclical vomiting syndrome secondary to marijuana use who presented for rehabilitation of his drug habit. On presentation, vital signs were T 98.2, HR 118, RR 24, BP 153/90, saturating 96% on room air. This improved to 98% on 3 L nasal cannula. Laboratories are sent in for hemoglobin 13.6, white blood cell count 11.8, MCV 84.2, glucose 113, negative LFTs, troponin less than 0.01. Chest x-ray showed generalized prominence of the bronchovascular markings with some areas of peribronchial cuffing centrally without confluent consolidation collapse which may represent small airways disease. He was initially admitted to general medicine, had a brief stay in the ICU, and was treated for the following problems: 1. Polysubstance abuse with withdrawal seizure 2. Transaminitis 3. Aspiration pneumonia 4. Anxiety 5. Normocytic anemia 6. Acute hypoxic respiratory failure 7. Acute horizontal diplopia #Polysubstance abuse: Patient has history of polysubstance (benzodiazepines, opioids, cannabis) abuse and would benefit greatly from rehabilitation after medically stabilized. He was initially admitted to general medicine and his withdrawal was treated with CIWA protocol and tapering lorazepam. However, on , patient had generalized tonic-clonic seizure and was transferred to the ICU for lorazepam drip. Response, a bag of pills was found in the patient's wallet and a contained oxycodone. It is thought that the patient was self medicating his withdrawal in addition to the lorazepam that we were giving him and he ran out of the medication which caused him to have an acute seizure. Neurology was consulted, EEG was consistent with benzodiazepine use. He was stabilized and transferred back to general medicine on 02/15/18 after being tapered off the lorazepam drip. He was maintained on CIWA protocol and tapering doses of standing lorazepam. However on 02/17/2018, patient decided to leave AGAINST MEDICAL ADVICE. Psychiatry evaluated and determined that the patient did have capacity to make this decision. The risks of leaving AGAINST MEDICAL ADVICE including withdrawal seizures, possible , and progressive decline in health secondary to continuing addiction were fully explained to the patient. He signed attesting to this as well. He should follow-up with the primary care referral and abstain from all recreational drug use. He should seek medical care if he develops symptoms of withdrawal or has a seizure. #Transaminitis: It was noted that the patient's hepatic liver enzyme were increased. This is most likely secondary to either the amoxicillin/colonic acid or chlordiazepoxide and these drugs were stopped and his LFTs improving. #Aspiration pneumonia: Patient was very somnolent on admission, crackles on exam , and chest x-ray findings consistent with possible aspiration pneumonia. He also had leukocytosis and tachycardia and hypoxia. He was treated with a full course of antibiotics. Chest x-ray was repeated after his seizure and showed no acute process. His breathing is improved, now off oxygen. #Acute horizontal diplopia: Patient was complaining of horizontal diplopia that was worse with upgaze. On exam, his right eye deviated inward on upgaze. He says he is still having some diplopia but it is improving. Head CT was negative and neurology evaluated as well. This has since gotten better. It was likely secondary to sedating medications. If the symptoms return, he should seek referral to an net mender. #Normocytic anemia: Iron studies are normal. Likely secondary to chronic disease. Allergies: Coded Allergies: No Known Allergies (02/08/18) Disposition Summary Disposition Principal Diagnosis: 1. Polysubstance abuse with withdrawal seizure Additional Diagnosis: 2. Transaminitis 3. Aspiration pneumonia 4. Anxiety 5. Normocytic anemia 6. Acute hypoxic respiratory failure 7. Acute horizontal diplopia Discharge Disposition: left against medical adv Discharge Instructions General Discharge Information Code Status: Full Code Patient's Diet: Regular diet Patient's Activity: As tolerated Follow-Up Instructions/Appts: Please take all medications as directed. Please abstain from all recreational drug use. Please seek medical care if you experience withdrawal symptoms or seizures. Please follow-up with primary care. Medications at Discharge Discharge Medications: Continue taking these medications: Quetiapine Fumarate (Quetiapine Fumarate) 50 MG TABLET 1 Tablet ORAL Every night Qty = 60 Comments: NOT GIVEN IN HOSPITAL Start taking the following new medications: Lisinopril (Lisinopril) 10 MG TABLET 10 Milligram ORAL DAILY Qty = 30 No Refills Instructions: . Comments: Last Taken: 02/17/18 Time: 0914AM Omeprazole (Omeprazole) 20 MG CAPSULE.DR 20 Milligram ORAL DAILY BEFORE BREAKFAST Qty = 30 No Refills Instructions: . Comments: Last Taken: 02/17/18 Time: 0512AM Multivitamin (One Daily Multivitamin) 1 EACH TABLET 1 Tablet ORAL DAILY Qty = 30 No Refills Instructions: . Comments: Last Taken: 02/17/18 Time: 0914AM Melatonin (Melatonin) 5 MG TABLET 5 Milligram ORAL AT BEDTIME as needed for Insomnia Qty = 30 No Refills Instructions: . Comments: Last Taken: 02/16/18 Time: 2117PM Copies To: Sanket DELVALLE,Sanket; Samantha DELVALLE,Dewayne; Marielena DELVALLE,Dex Reynoso; Ever Osorio APRN; Denzel DELVALLE,Fabi [place]
== END 2018-02-17 11:22 | disposition left against medical advice (07) | DRG 177 ==
LOC: ERH 11:20 → ERHI 16:18 → CRI 16:18 → 2NB 16:18 → ENRESERV 17:22 → ENTRNSPT 18:28 → EDTRNSPTSTS 18:45 → EDTRNSPT 18:45 → 2NB 18:55 → CMPTRNSPT 19:05 → 2NB 02-09 08:07 → CRI 02-12 13:18 → ENTRNSPT 02-15 14:06 → EDTRNSPTSTS 02-15 14:10 → EDTRNSPT 02-15 14:10 → 2NB 02-15 14:23 → CMPTRNSPT 02-15 14:28 → 2NB 02-15 20:35 → ENPENDDIS 02-17 10:42 → 2NB 02-17 11:22
PROVIDERS: Hospitalist; Internal Medicine; Internal Medicine Endocrinology, Diabetes & Metabolism; Physician Assistant
DX: J69.0 Pneumonitis due to inhalation of food and vomit (principal); J96.01 Acute respiratory failure with hypoxia; F11.20 Opioid dependence, uncomplicated; R56.9 Unspecified convulsions; E87.2 Acidosis; F19.10 Other psychoactive substance abuse, uncomplicated; G43.A0 Cyclical vomiting, in migraine, not intractable; F41.9 Anxiety disorder, unspecified; J45.909 Unspecified asthma, uncomplicated; F12.20 Cannabis dependence, uncomplicated; H53.2 Diplopia; D64.9 Anemia, unspecified; K21.9 Gastro-esophageal reflux disease without esophagitis; R74.0 Nonspecific elevation of levels of transaminase and lactic acid dehydrogenase [LDH]; G47.00 Insomnia, unspecified; R10.13 Epigastric pain
CPT/HCPCS: 2NBP; 2NBSP; CCU; 36415; 36592; 71045; 71046; 80307; 82436; 87040; 93005; 93010; 94644; 96361; 96374; 96375; 96376; 99232; 99233; G0480; J0131; J1650; J2060; J2310; J2405; J2930